=== PATIENT | female | born 1945 | race Caucasian/White ===

== ENCOUNTER 2018-12-18 12:05 | Inpatient (IN) ==
[2018-12-18] MEDS ORDERED: Albuterol 2.5 MG/3 ML NEBULIZER IH STA ×3 (12:10→13:53)
--- NOTE | 2018-12-18 12:13 | Emergency Department Note ---
Disposition Clinical Impression: COPD exacerbation, Hyponatremia Disposition: Admitted As Inpatient Condition: Critical Referrals: Aryan Rees MD [Primary Care Provider] - Time of Disposition: 14:30 General Adult HPI - General Stated complaint: KEYLA Time Seen by Provider: 12/18/18 12:09 - History of Present Illness HPI Narrative: Patient resents a couple of days of gradually progressive shortness of breath. She has not had a fever. Denies chest pain. Medics arrived and found her tripoding, gave her 3 duo nebs in route. Patient is having trouble conversing and answering questions in detail due to her dyspnea. She denies any other complaint at this time. - Related Data Home Medications Medication Instructions Recorded Confirmed Albuterol Sulfate [Proair 1 - 2 puff IH Q6H PRN 03/31/15 12/18/18 Respiclick] Allopurinol [Zyloprim] 100 mg PO DAILY 03/31/15 12/18/18 Denosumab [Prolia (For Outpatient 60 mg IV [id number] 03/31/15 12/18/18 Infusion)] Furosemide [Lasix] 40 mg PO DAILY 03/31/15 12/18/18 Lisinopril [Zestril] 2.5 mg PO DAILY 03/31/15 12/18/18 Spironolactone [Aldactone] 12.5 mg PO DAILY 03/31/15 12/18/18 Budesonide/Formoterol 160/4.5 2 puff IH BIDR 10/17/18 12/18/18 [Symbicort 160/4.5] Carvedilol [Coreg] 25 mg PO BID 10/17/18 12/18/18 Cholecalciferol (Vitamin D3) 5,000 unit PO DAILY 12/18/18 12/18/18 [Vitamin D3] Colchicine [Colcrys] 0.6 mg PO DAILY 12/18/18 12/18/18 Ipratropium/Albuterol Sulfate 2 inh IH Q6HR PRN 12/18/18 12/18/18 [Combivent Respimat Inhal [place]] Tiotropium [place] [Spiriva 2 inh IH DAILY 12/18/18 12/18/18 Respimat] Previous Rx's Medication Instructions Recorded Rivaroxaban [Xarelto] 20 mg PO DAILY #30 tablet 09/26/17 Allergies Allergy/AdvReac Type Severity Reaction Status Date / Time latex Allergy Unknown Rash Verified 09/26/17 08:03 aspirin AdvReac Unknown Stomach Verified 09/26/17 08:03 upset Review of Systems: Negative as best as I could obtain it, limited due to factors noted above. Past Medical History - Past Medical History Medical history: Reports: osteoporosis Surgical history: Reports: non-contributory Psychiatric history: Reports: no psych history - Social History Smoking Status: Former smoker Smokeless Tobacco Status: No Alcohol use: Reports: none Drug use: Reports: none Physical Exam Vital signs noted please see nurse's notes. Gen.: Well-developed, well-nourished patient sitting up in bed who is in moderate respiratory distress. Head: Atraumatic, normocephalic. Eyes: Sclerae anicteric. ENT: Mucous membranes moist. Neck: No JVD. Heart: Distant heart sounds, mildly tachycardic and regular without appreciable murmur. Lungs: Diminished breath sounds bilaterally with prolonged expiratory phase and auditory wheezing. No focal rales noted. Exam is symmetrical. Abdomen: Soft, nontender, nondistended, no guarding or peritoneal signs. Skin: Warm and dry without rash. Neurologic: Awake, alert with normal speech and mental status. Cranial nerves grossly intact. No focal deficits or lateralizing signs. Musculoskeletal: 1+ bilateral peripheral edema. No signs of trauma or DVT. Peripheral Vascular: Radial pulses 2+ and symmetrical b/l. Course Course Narrative: Patient was treated aggressively with nebulizers, given steroids. Chest x-ray has not been read by radiologist due to significant delays today due to volume, on my review does not show an obvious infiltrate. Given her antibiotics or COPD exacerbation. We had a BiPAP when she showed minimal improvement. I did back to the room to reevaluate her approximately 5 or 6 times, over the course of her ED stay, she is moving a little bit more air that she was not beginning but it is not a significant improvement despite 37.5 mg nebulized albuterol and BiPAP. The nurse was concerned that she was less responsive than when she got here, but on my assessment found her slightly more responsive than she was. She was tracking me with her eyes, answering questions, speaking with me, nodding her head to questions without delays. She does have, however, significant work of breathing. I have added a venous blood gas to assess her acid base status, I do not think that she requires intubation at this time, but if she does not start to show improvement she may need it during the course of the day today area therefore, I have called for ICU admission. Critical care time: I was directly and primarily involved in the care of this patient for 45 minutes excluding procedures. Vital Signs Temperature 97.1 F L 12/18/18 12:15 Pulse Rate 100 12/18/18 12:15 Respiratory Rate 24 12/18/18 12:15 Blood Pressure 145/123 12/18/18 12:15 O2 Sat by Pulse Oximetry 83 12/18/18 12:15 Temperature 97.1 F L 12/18/18 12:15 Pulse Rate 97 12/18/18 13:45 Respiratory Rate 22 12/18/18 14:27 Blood Pressure 111/82 12/18/18 13:45 O2 Sat by Pulse Oximetry 94 12/18/18 14:27 Oxygen Delivery Oxygen Delivery Bipap Medical Decision Making - Lab Data Result diagrams: 12/18/18 12:21 12/18/18 13:34 Lab Results 12/18/18 12/18/18 12/18/18 Range/Units 12:21 12:21 13:34 WBC 6.7 (4.3-11.1) K/mcL RBC 4.91 (3.82-4.97) M/mcL Hgb 16.9 H (11.5-15.4) g/dL Hct 46.9 H (35.3-44.9) % MCV 95.5 (83.0-100.0) fL MCH 34.4 H (28.0-33.3) pg MCHC 36.0 H (31.6-35.5) g/dL RDW 12.2 (11.5-14.5) % Plt Count 129 L (140-400) K/mcL MPV 10.8 (9.4-12.4) fL Sodium 118 L* 118 L* (136-145) mEq/L Potassium 5.2 H 4.9 (3.5-5.1) mEq/L Chloride 79 L 79 L (98-107) mEq/L Carbon Dioxide 27 25 (23-29) mEq/L BUN 33 H 34 H (8-23) mg/dL Creatinine 1.71 H 1.76 H (0.60-1.20) mg/dL Est GFR ( Amer) 36 L 34 L (> 60) Est GFR (Non-Af Amer) 29 L 28 L (> 60) BUN/Creatinine Ratio 19 19 (6-26) Glucose 138 H 127 H (70-105) mg/dL Calculated Osmolality 255 L 255 L (280-300) Calcium 7.4 L 7.3 L (8.6-10.3) mg/dL - EKG Data EKG #1 EKG attestation: Yes I reviewed and interpreted this EKG. Rhythm: other (Paced rhythm, 100 bpm.)
[2018-12-18 12:46] LABS: Hematocrit 46.9 % (35.3-44.9); Hemoglobin 16.9 g/dL (11.5-15.4); Mean Corpuscular Hemoglobin 34.4 pg (28.0-33.3); Mean Corpuscular Volume 95.5 fL (83.0-100.0); Mean Platelet Volume 10.8 fL (9.4-12.4); Platelet Count 129 K/mcL (140-400); Red Blood Count 4.91 M/mcL (3.82-4.97); Red Cell Distribution Width 12.2 % (11.5-14.5); White Blood Count 6.7 K/mcL (4.3-11.1)
[2018-12-18 13:12] LABS: Calcium 7.4 mg/dL (8.6-10.3); Potassium 5.2 mEq/L (3.5-5.1)
[2018-12-18 14:49] LABS: Calcium 7.3 mg/dL (8.6-10.3); Potassium 4.9 mEq/L (3.5-5.1)
[2018-12-18] MEDS ORDERED: levoFLOXacin 500 MG/100 ML 500 MG/100 ML BAG IVPB ONE (14:49)
[2018-12-18 15:04] LABS: VBG HCO3 25 mEq/L (21-27); VBG PCO2 54 mmHg (41-51); VBG PH 7.27 pH Units (7.32-7.42); VBG PO2 80 mmHg (25-50)
[2018-12-18] MEDS ORDERED: Naloxone 0.4 MG/ML INJ IVP PRN (15:10)
[2018-12-18] MEDS ORDERED: methylPREDNISolone 125 MG/2 ML VIAL IVP ONE (15:15)
[2018-12-18 15:16] LABS: Bilirubin,Urine Moderate (Negative); Blood,Urine Trace (Negative); Clarity,Urine Cloudy (Clear); Color,Urine Dark Yellow (Yellow); Glucose,Urine (UA) Normal (Normal); Ketones,Urine Negative (Negative); Leukocyte Esterase,Urine Negative (Negative); Nitrite,Urine Negative (Negative); Protein,Urine Negative (Neg-Trace); Specific Gravity,Urine 1.017 (1.010-1.025); Urobilinogen,Urine Normal (Normal)
[2018-12-18 15:19] LABS: Bacteria,Urine None Seen per hpf (None-Few); Squamous Epithelial Cell,Urine Many per lpf (None-Few); WBC,Urine 0-3 per hpf (0-3)
[2018-12-18] MEDS: 0.9 % Sodium Chloride 1,000 ML IVC SCH (15:32)
--- NOTE | 2018-12-18 15:39 | Internal Med History&Physical ---
<Esa Gillette N - Last Filed: 12/18/18 16:35> Date of Encounter: 12/18/18 Time of Encounter: 15:36 Internal Medicine - H&P: HPI Chief complaint: Respiratory Distress Admitted From: Home History of present illness: Ms. Sands is a 73 year old female with history difficult to obtain due to patient's current respiratory distress and being on the BiPAP. Patient's son at bedside, but has limited knowledge of mother's medical conditions. Per medication review patient is on several respiratory-related medications and is on several cardiac medications including a beta felice, Lasix, spironolactone, xarelto, and lisinopril. According to son patient has had a couple days of progressive shortness of breath which he states patient should have come in earlier for but refused until today. Patient's son also states patient is a ci garette smoker and drinks approximately one fourth of a gallon of whiskey per day at home. En route patient was given 3 DuoNeb's by EMS. Upon arrival to the ED she was having trouble conversing due to dyspnea and was started on BiPAP as initial O2 saturation was at 83% and a respiratory rate of 24. Patient's oxygenation improved once BiPAP was started with current O2 saturation of 96%. All other vital signs stable with heart rate of 95%, respiratory rate elevated at 24, and most recent blood pressure 111/88. CXR with a focal density in the right lower lung field. Labs significant for a sodium of 118 and creatinine of 1.76. In the ED patient was given a dose of Levaquin, Solu-Medrol, and started on Proventil nebs. Past Med Surg Social Fam HX - Past Medical History Medical history: CHF, COPD, DVT, hypertension, osteoporosis Additional medical history: gout Psychiatric history: no psych history - Past Surgical History Surgical History: non-contributory Additional surgical history: back surgery, tubal ligation, PPM - Social History Smoking Status: Former smoker Smokeless Tobacco Status: No Alcohol use: none Drug use: none Internal Medicine - H&P: Meds Albuterol Sulfate [Proair Respiclick] 1 - 2 puff IH Q6H PRN 03/31/15 [History] Allopurinol [Zyloprim] 100 mg PO DAILY 03/31/15 [History] Denosumab [Prolia (For Outpatient Infusion)] 60 mg IV [id number] 03/31/15 [History] Furosemide [Lasix] 40 mg PO DAILY 03/31/15 [History] Lisinopril [Zestril] 2.5 mg PO DAILY 03/31/15 [History] Spironolactone [Aldactone] 12.5 mg PO DAILY 03/31/15 [History] Rivaroxaban [Xarelto] 20 mg PO DAILY #30 tablet 09/26/17 [Rx] Budesonide/Formoterol 160/4.5 [Symbicort 160/4.5] 2 puff IH BIDR 10/17/18 [History] Carvedilol [Coreg] 25 mg PO BID 10/17/18 [History] Cholecalciferol (Vitamin D3) [Vitamin D3] 5,000 unit PO DAILY 12/18/18 [History] Colchicine [Colcrys] 0.6 mg PO DAILY 12/18/18 [History] Ipratropium/Albuterol Sulfate [Combivent Respimat Inhal [place]] 2 inh IH Q6HR PRN 12/18/18 [History] Tiotropium [place] [Spiriva Respimat] 2 inh IH DAILY 12/18/18 [History] Allergy/AdvReac Type Severity Reaction Status Date / Time latex Allergy Unknown Rash Verified 09/26/17 08:03 aspirin AdvReac Unknown Stomach Verified 09/26/17 08:03 upset ROS unobtainable: other (due to BiPAP and respiratory distress ROS difficult to obtain at this time) All Systems PM: A 10-system review of systems was performed and is negative for pertinent findings except as documented above in the HPI. - Constitutional Vitals: Temp Pulse Resp BP Pulse Ox 97.1 F L 107 24 111/88 98 12/18/18 12:15 12/18/18 15:05 12/18/18 15:05 12/18/18 15:05 12/18/18 15:05 Exam: Pt on BiPAP in respiratory distress tripod positioning - Head Head exam: Present: atraumatic, normocephalic - Eye Eye exam: Present: EOMI, PERRL - Neck Neck exam general surgery: Present: supple. Absent: lymphadenopathy - Respiratory Respiratory exam: Present: decreased breath sounds, wheezes - Cardiovascular Cardiovascular exam: Present: RRR. Absent: diastolic murmur, systolic murmur - GI/Abdominal GI/Abdominal exam: Present: normal bowel sounds, soft. Absent: tenderness - Extremities Exam Extremities exam: Present: full ROM. Absent: calf tenderness - Neurological Exam Neurological exam: Present: alert Additional comments: Not well assessed due to BiPAP and respiratory distress - Psychiatric Additional comments: Not well assessed due to BiPAP and respiratory distress - Skin Skin exam: Present: intact, warm Internal Med - H&P Results - Labs CBC & Chem 7: 12/18/18 12:21 12/18/18 13:34 Labs: Short CBC 12/18/18 Range/Units 12:21 WBC 6.7 (4.3-11.1) K/mcL Hgb 16.9 H (11.5-15.4) g/dL Hct 46.9 H (35.3-44.9) % Plt Count 129 L (140-400) K/mcL BMP 12/18/18 12/18/18 12:21 13:34 Sodium 118 L* 118 L* Potassium 5.2 H 4.9 Chloride 79 L 79 L Carbon Dioxide 27 25 BUN 33 H 34 H Creatinine 1.71 H 1.76 H Glucose 138 H 127 H Calcium 7.4 L 7.3 L Urine 12/18/18 Range/Units 15:06 Urine Color Dark Yellow (Yellow) Urine Clarity Cloudy A (Clear) Urine pH 5.0 (5.0-8.0) pH Units Ur Specific [place] 1.017 (1.010-1.025) Urine Protein Negative (Neg-Trace) mg/dL Urine Glucose (UA) Normal (Normal) mg/dL - ABG Interpretation ABG results: 12/18/18 14:58 VBG pH 7.27 L VBG pCO2 54 H VBG pO2 80 H VBG HCO3 25 - Impressions ITS Impressions Chest X-Ray 12/18/18 12:10 IMPRESSION: Focal density in the right lower lung field for which noncontrast chest CT is recommended for complete assessment. Focal infiltrate or possible mass is raised. D/ / 12/18/2018 13:28:52 Satya Varela MD / [facility] Interpreting Provider: Satya Varela MD - Assessment and Plan (1) Respiratory failure with hypoxia and hypercapnia Current Visit: Yes Status: Acute Assessment and plan: Patient presenting with acute respiratory distress most likely secondary to PNA/COPD exacerbation CXR with focal density in the RLL could be focal infiltrate or possible mass. PE lower on differential due to patient currently on Xarelto Patient currently requiring BiPAP therapy with O2 saturation of 96% -Lactic Acid ordered -Levoquin given in ED -Vancomycin and Zosyn day 1 -Solu-Medrol, duonebs, and symbicort therapy -ABG ordered, will follow results -Legionella antigen ordered -We will have low threshold to intubate patient if showing signs of worsening respiratory distress -D-dimer ordered, will follow for results -We will hold off on CT chest with contrast until SALINAS resolved. Possibly tomorrow -Last dose of Xarelto this morning will start heparin tomorrow morning Qualifiers: Chronicity: acute on chronic Qualified Code(s): J96.21 - Acute and chronic respiratory failure with hypoxia; J96.22 - Acute and chronic respiratory failure with hypercapnia (2) Hyponatremia Current Visit: Yes Status: Acute Assessment and plan: Na of 118 x2 Patient on lasix 40 mg and aldactone 12.5 mg daily in the setting of alcoholism Pt without acute AMS with hyponatremia -Hold diuretic therapy -Started NS at 100 ml/hr -Continue to monitor for improvement -Urine Osmolality and electrolytes ordered as well as random cortisol, will follow for results. 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 in the setting of severe dehydration and dual diuretic use -Hold diuretics -Maintenance fluids started NS 100 mls/hr -Continue to monitor for improvement (4) Hypovolemia dehydration Current Visit: Yes Status: Acute Assessment and plan: Probably secondary to decreased intake with dual diuretic therapy, and respiratory distress Pt on lasix 40 mg Daily and aldactone 12.5 mg at home with heavy alcohol use -Started on NS 100 ml/hr -Cortisol, urine osmolality, and urine electrolytes will monitor results (5) Alcoholism Current Visit: Yes Status: Acute Assessment and plan: Pts son admits that pt drinks approximately 1/4 a gallon of alcohol per day Maybe contributing to hyponatremia -Start [facility] protocol for acute alcohol withdrawal. (6) DVT prophylaxis Current Visit: Yes Status: Acute Assessment and plan: On Xarelto, will start heparin tomorrow morning. - Time Spent With Patient Total time spent is greater than 50% in coordination of care (as documented) at patient's floor/unit and/or counseling patient: <Addison Eduardo - Last Filed: 12/18/18 17:55> Date of Encounter: 12/18/18 Time of Encounter: 15:50 - Constitutional Constitutional: fatigue, no chills, no fever(s), no night sweats - EENT Eyes: no blurry vision, no change in vision Ears: no ear pain, no tinnitus Nose, mouth and throat: nasal congestion, no sinus pressure, no sore throat - Cardiovascular Cardiovascular ROS IM: dyspnea, dyspnea on exertion, no chest pain, no edema, no lightheadedness, no orthopnea, no paroxysmal nocturnal dyspnea, no syncope - Respiratory Respiratory: cough, dyspnea, dyspnea on exertion, wheezing, chest congestion, excessive phlegm production, change in phlegm color, no hemoptysis, no pain on inspiration, no pain with cough - Gastrointestinal Gastrointestinal: diarrhea, nausea, no abdominal pain, no coffee ground emesis, no hematemesis, no hematochezia, no vomiting - Genitourinary Genitourinary: no dysuria, no flank pain, no hematuria - Musculoskeletal Musculoskeletal ROS IM: no arthralgias, no back pain - Integumentary Integumentary IM: no rash, no jaundice - Neurological Neurological ROS: no dizziness, no focal weakness, no frequent falls, no headache(s) - Psychiatric Psychiatric: no anxiety, no depression - Endocrine Endocrine IM: no polydipsia, no polyuria - Hematologic/Lymphatic Hematologic/Lymphatic: easy bruising - Allergic/Immunologic Allergic/Immunologic: wheezing, no GI upset with certain foods - Constitutional Vitals: Temp Pulse Resp BP Pulse Ox 97.6 F 80 25 77/62 96 12/18/18 16:28 12/18/18 17:15 12/18/18 17:15 12/18/18 17:15 12/18/18 17:15 General appearance: Present: cooperative, A&O X 3, severe distress, answers questions appropriately Exam: in severe respiratory distress on BiPap; answers yes/no questions; appears clinically dehydrated - Head Head exam: Present: atraumatic, normal inspection - Eye Eye exam: Present: EOMI, PERRL. Absent: scleral icterus Pupils: Present: normal accommodation - ENT ENT exam: Present: mucous membranes dry Additional comments: BiPap Mask in place - Neck Neck exam general surgery: Present: full ROM, supple, trachea midline. Absent: lymphadenopathy, tenderness - Respiratory Respiratory exam: Present: accessory muscle use, decreased breath sounds, prolonged expiratory phase, respiratory distress, rhonchi, wheezes, tachypnea. Absent: chest wall tenderness, rales, stridor Additional comments: increased work of breathing - Cardiovascular Cardiovascular exam: Present: distant heart sounds, RRR, +S1, +S2. Absent: diastolic murmur, systolic murmur Additional comments: palpable pacer in left upper chest - GI/Abdominal GI/Abdominal exam: Present: normal bowel sounds, soft, no peritoneal signs. Absent: hepatomegaly, mass, rebound, splenomegaly, tenderness - Extremities Exam Extremities exam: Present: full ROM, warm, radial pulses palpable and symmetrical. Absent: calf tenderness, normal capillary refill (delayed at roughly 4 seconds), pedal edema, tenderness - Back Exam Back exam: Absent: CVA tenderness (L), CVA tenderness (R) - Neurological Exam Neurological exam: Present: alert, CN II-XII intact, oriented X3, no focal deficits - Psychiatric Psychiatric exam: Present: normal affect, normal mood - Skin Skin exam: Present: dry, intact, warm Additional comments: + skin tenting; some peripheral bruising on arms Internal Med - H&P Results - Labs CBC & Chem 7: 12/18/18 12:21 12/18/18 13:34 Labs: Short CBC 12/18/18 Range/Units 12:21 WBC 6.7 (4.3-11.1) K/mcL Hgb 16.9 H (11.5-15.4) g/dL Hct 46.9 H (35.3-44.9) % Plt Count 129 L (140-400) K/mcL BMP 12/18/18 12/18/18 12:21 13:34 Sodium 118 L* 118 L* Potassium 5.2 H 4.9 Chloride 79 L 79 L Carbon Dioxide 27 25 BUN 33 H 34 H Creatinine 1.71 H 1.76 H Glucose 138 H 127 H Calcium 7.4 L 7.3 L Urine 12/18/18 Range/Units 15:06 Urine Color Dark Yellow (Yellow) Urine Clarity Cloudy A (Clear) Urine pH 5.0 (5.0-8.0) pH Units Ur Specific [place] 1.017 (1.010-1.025) Urine Protein Negative (Neg-Trace) mg/dL Urine Glucose (UA) Normal (Normal) mg/dL - ABG Interpretation ABG results: 12/18/18 12/18/18 14:58 16:52 ABG pH 7.36 ABG pCO2 45 ABG pO2 115 H ABG HCO3 26 ABG Total CO2 27 H ABG O2 Saturation 98 ABG Base Excess 0 VBG pH 7.27 L VBG pCO2 54 H VBG pO2 80 H VBG HCO3 25 - Impressions ITS Impressions Chest X-Ray 12/18/18 12:10 IMPRESSION: Focal density in the right lower lung field for which noncontrast chest CT is recommended for complete assessment. Focal infiltrate or possible mass is raised. D/ / 12/18/2018 13:28:52 Satya Varela MD / [email or web address] Interpreting Provider: Satya Varela MD - Time Spent With Patient Total time spent is greater than 50% in coordination of care (as documented) at patient's floor/unit and/or counseling patient: - Attending Attestation I discussed the patient [place], past medical history, review of systems, lab data, imaging data, and exam findings with Dr. Gillette. I then saw, examined, and interviewed patient in the ER independently as well in the presence of her son. Patient is in severe acute respiratory distress secondary to COPD exacerbation. She states she is improved somewhat since the BiPAP initiation. Despite the BiPAP, she is exhibiting signs of increased work of breathing. She is teetering on the verge of being intubated. I explained to patient, son, and then later her , that she is gravely ill and is at high risk of decompensation from a respiratory standpoint. I discussed CODE STATUS with her, her son, and her , and she remains full code. If she decompensates, she agrees and requests to be intubated. We will try to avoid intubation, but we will proceed as such if necessary. She denies having any fevers, but she has been coughing, wheezing, and coughing up purulent sputum over the last few days. She denies any chest pain. She is an active smoker despite having advanced COPD. She also is a heavy drinker of alcohol. She is at high risk of alcohol withdrawal. She has a history of DVT and is on Xarelto for DVT prophylaxis as well as atrial fibrillation. Her last DVT was 2 years ago. She did take her Xarelto this morning. As such, we will start heparin drip tomorrow morning and proceed with CT angiogram of the chest once her kidney function improves. Her chest x-ray is suspicious for right lower lobe infiltrate versus a mass. Regarding her hyponatremia, she appears to be hypovolemic due to aggressive diuresis with Lasix and spironolactone, insensible water loss secondary to decreased by mouth intake and excessive respiratory distress, and excessive alcohol intake. There may be a component of SIADH given possible underlying malignancy of the lung. We will trend her chemistries frequently and gingerly hydrate her with normal saline while holding her diuretics. She appears to be clinically dehydrated on exam and is in need of IV fluid support. I called and spoke with Dr. Villareal from nephrology and am consulting him. He concurs with the plan of care. Given her severe her respiratory distress, advanced COPD, and ongoing need for support from BiPAP and possibly mechanical ventilator, we will also consult pulmonary to see her in the morning for ongoing guidance and support. Other than my comments above and documented exam findings, I agree with Dr. Gillette's assessment and plan. Please note that a total of 65 minutes critical care time spent assessing, examining, and coordinating care of this patient -- excluding separately documented procedure notes.
[2018-12-18] MEDS ORDERED: Calcium Gluconate 1gm/50mL 1 GM/50 ML BAG IVPB ONE (15:43)
[2018-12-18] MEDS ORDERED: Vancomycin 1 EACH in 0.9 % Sodium Chloride 250 ML IVPB SCH (16:00)
[2018-12-18 16:08] LABS: Potassium,Urine 29.7 mEq/L; Sodium, Urine 17.7 mEq/L
[2018-12-18 16:27] LABS: Thyroid Stimulating Hormone 1.344 mcIU/mL (0.340-5.600)
[2018-12-18 16:56] LABS: ABG Base Excess 0 mEq/L (-2 to 3); ABG HCO3 26 mEq/L (21-27); ABG Oxygen Saturation 98 % (95-98); ABG PCO2 45 mmHg (35-45); ABG PH 7.36 pH Units (7.32-7.45); ABG PO2 115 mmHg (85-104); ABG TCO2 27 mEq/L (20-26)
[2018-12-18] MEDS: Ipratropium/Albuterol Neb 3 ML IH SCH ×2 (16:59→22:58)
--- NOTE | 2018-12-18 18:04 | Internal Med Progress Note ---
<Archie Schroeder - Last Filed: 12/18/18 18:05> Hospitalist Progress Note - Encounter Date of Encounter: 12/18/18 Time of Encounter: 18:02 - Subjective Interval History: This note is intended for the sole purpose of procedure note for right femoral central venous catheterization. Please see hospitalist H&P for further informa tion. - Exam Vitals: Temp Pulse Resp BP Pulse Ox 97.6 F 80 25 77/62 96 12/18/18 16:28 12/18/18 17:15 12/18/18 17:15 12/18/18 17:15 12/18/18 17:15 Exam: Patient stable at this time. - Time Spent with Patient Total time spent is greater than 50% in coordination of care (as documented) at patient's floor/unit and/or counseling patient: Internal Medicine: Result - Labs CBC & Chem 7: 12/18/18 12:21 12/18/18 13:34 Labs: Short CBC 12/18/18 Range/Units 12:21 WBC 6.7 (4.3-11.1) K/mcL Hgb 16.9 H (11.5-15.4) g/dL Hct 46.9 H (35.3-44.9) % Plt Count 129 L (140-400) K/mcL BMP 12/18/18 12/18/18 12:21 13:34 Sodium 118 L* 118 L* Potassium 5.2 H 4.9 Chloride 79 L 79 L Carbon Dioxide 27 25 BUN 33 H 34 H Creatinine 1.71 H 1.76 H Glucose 138 H 127 H Calcium 7.4 L 7.3 L Urine 12/18/18 Range/Units 15:06 Urine Color Dark Yellow (Yellow) Urine Clarity Cloudy A (Clear) Urine pH 5.0 (5.0-8.0) pH Units Ur Specific [place] 1.017 (1.010-1.025) Urine Protein Negative (Neg-Trace) mg/dL Urine Glucose (UA) Normal (Normal) mg/dL - ABG Interpretation ABG results: ABG ABG pH 7.36 pH Units (7.32-7.45) 12/18/18 16:52 ABG pCO2 45 mmHg (35-45) 12/18/18 16:52 ABG pO2 115 mmHg (85-104) H 12/18/18 16:52 ABG O2 Saturation 98 % (95-98) 12/18/18 16:52 PT/INR, D-dimer D-Dimer 739 ng/mLFEU (0-500) H 12/18/18 16:26 - Impressions Impressions Chest X-Ray 12/18/18 12:10 IMPRESSION: Focal density in the right lower lung field for which noncontrast chest CT is recommended for complete assessment. Focal infiltrate or possible mass is raised. D/ / 12/18/2018 13:28:52 Satya Varela MD / randi Interpreting Provider: Satya Varela MD Procedures: Internal Med - Central Line Placement Right Femoral Consent Obtained: verbal consent, written consent Time out performed: Yes Patient placed on monitor/pulse ox: Yes MD prep: mask, gown, gloves Central line prep: Chlorhexidine scrub Local anesthesia used: Lidocaine 1% Amount of anesthesia used (mls): 3 Ultrasound used for placement: Yes Central line lumen inserted: triple Post Procedure: sutured in place, good blood return, all ports aspirated, flushed, capped, sterile dressing applied, dark venous blood, biodisk applied Patient tolerated procedure: well, no complications Complications: none Additional comments: Patient was draped in sterile fashion, with sterile procedure observed throughout the event. Patient tolerated procedure well without complications. 3 lm central venous catheter was sutured in place with bio disc and Tegaderm applied. Consult Discharge Plan - Plan Referrals: Aryan Rees MD [Primary Care Provider] - <Addison Eduardo - Last Filed: 12/19/18 06:39> Hospitalist Progress Note - Encounter Date of Encounter: 12/19/18 - Exam Vitals: Temp Pulse Resp BP Pulse Ox 97.2 F L 88 21 115/85 96 12/19/18 04:54 12/19/18 06:00 12/19/18 06:00 12/19/18 06:00 12/19/18 06:00 - Time Spent with Patient Total time spent is greater than 50% in coordination of care (as documented) at patient's floor/unit and/or counseling patient: Internal Medicine: Result - Labs CBC & Chem 7: 12/19/18 03:50 12/19/18 03:50 Labs: Short CBC 12/18/18 12/19/18 Range/Units 12:21 03:50 WBC 6.7 2.7 L D (4.3-11.1) K/mcL Hgb 16.9 H 14.4 D (11.5-15.4) g/dL Hct 46.9 H 39.7 (35.3-44.9) % Plt Count 129 L 104 L (140-400) K/mcL BMP 12/18/18 12/18/18 12/18/18 12:21 13:34 18:29 Sodium 118 L* 118 L* 120 L* Potassium 5.2 H 4.9 4.5 Chloride 79 L 79 L 82 L Carbon Dioxide 27 25 25 BUN 33 H 34 H 37 H Creatinine 1.71 H 1.76 H 1.98 H Glucose 138 H 127 H 84 Calcium 7.4 L 7.3 L 7.0 L 12/18/18 12/18/18 12/19/18 20:30 23:00 01:20 Sodium 121 L 121 L 121 L Potassium 4.8 4.9 Chloride 83 L 85 L Carbon Dioxide 23 21 L BUN 37 H 38 H Creatinine 1.96 H 2.00 H Glucose 65 L 66 L Calcium 6.9 L 6.6 L 12/19/18 03:50 Sodium 122 L Potassium 5.0 Chloride 86 L Carbon Dioxide 19 L BUN 41 H Creatinine 2.01 H Glucose 65 L Calcium 6.5 L Liver Function 12/19/18 Range/Units 03:50 Total Bilirubin 2.6 H (0.3-1.0) mg/dL AST 295 H (13-39) Units/L ALT 90 H (7-52) Units/L Alkaline Phosphatase 100 (34-104) Units/L Albumin 2.9 L (3.5-5.7) g/dL Urine 12/18/18 Range/Units 15:06 Urine Color Dark Yellow (Yellow) Urine Clarity Cloudy A (Clear) Urine pH 5.0 (5.0-8.0) pH Units Ur Specific [place] 1.017 (1.010-1.025) Urine Protein Negative (Neg-Trace) mg/dL Urine Glucose (UA) Normal (Normal) mg/dL - ABG Interpretation ABG results: ABG ABG pH 7.34 pH Units (7.32-7.45) 12/19/18 05:11 ABG pCO2 39 mmHg (35-45) 12/19/18 05:11 ABG pO2 90 mmHg (85-104) 12/19/18 05:11 ABG O2 Saturation 97 % (95-98) 12/19/18 05:11 PT/INR, D-dimer PT 28.7 Seconds (9.4-12.1) H 12/19/18 03:50 D-Dimer 739 ng/mLFEU (0-500) H 12/18/18 16:26 - Impressions Impressions Chest X-Ray 12/18/18 12:10 IMPRESSION: Focal density in the right lower lung field for which noncontrast chest CT is recommended for complete assessment. Focal infiltrate or possible mass is raised. D/ / 12/18/2018 13:28:52 Satya Varela MD / [facility] Interpreting Provider: Satya Varela MD - Attending Attestation I was present during the entire procedure and supervised the procedure. Dr. Cope performed the procedure flawlessly and patient tolerated procedure well without immediate complication.
[2018-12-18] MEDS: Piperacillin/Tazobactam 3.375 GM in 0.9 % Sodium Chloride Mini Bag 100 ML IVPB SCH (18:14)
[2018-12-18 19:06] LABS: Potassium 4.5 mEq/L (3.5-5.1)
[2018-12-18 21:02] LABS: Calcium 6.9 mg/dL (8.6-10.3); Potassium 4.8 mEq/L (3.5-5.1)
[2018-12-18] MEDS: Budesonide/Formoterol 160/4.5 1 PUFF INH IH SCH (22:58)
[2018-12-18 23:35] LABS: Calcium 6.6 mg/dL (8.6-10.3); Potassium 4.9 mEq/L (3.5-5.1)
[2018-12-19] MEDS: 0.9 % Sodium Chloride 1,000 ML IVC SCH ×3 (01:30→19:40)
[2018-12-19 04:05] LABS: Hematocrit 39.7 % (35.3-44.9); Mean Corpuscular HGB Conc 36.3 g/dL (31.6-35.5); Mean Corpuscular Volume 93.9 fL (83.0-100.0); Mean Platelet Volume 11.1 fL (9.4-12.4); Platelet Count 104 K/mcL (140-400); Red Blood Count 4.23 M/mcL (3.82-4.97); Red Cell Distribution Width 12.2 % (11.5-14.5)
[2018-12-19 04:09] LABS: White Blood Count 2.7 K/mcL (4.3-11.1)
[2018-12-19 04:10] LABS: Hemoglobin 14.4 g/dL (11.5-15.4)
[2018-12-19] MEDS: Ipratropium/Albuterol Neb 3 ML IH SCH ×5 (04:16→23:48)
[2018-12-19 04:20] LABS: INR 2.5; Prothrombin Time 28.7 Seconds (9.4-12.1)
[2018-12-19 04:24] LABS: Albumin 2.9 g/dL (3.5-5.7); Albumin/Globulin Ratio 1.3 (1.1-2.2); Bilirubin,Total 2.6 mg/dL (0.3-1.0); Calcium 6.5 mg/dL (8.6-10.3); Globulin 2.3 g/dL (2.4-3.5); Total Protein 5.2 g/dL (6.4-8.9)
[2018-12-19 04:33] LABS: Heparin anti-factor XA UFH > 2.00 IU/mL (0.30-0.70)
[2018-12-19 05:17] LABS: ABG Base Excess -4 mEq/L (-2 to 3); ABG HCO3 21 mEq/L (21-27); ABG Oxygen Saturation 97 % (95-98); ABG PCO2 39 mmHg (35-45); ABG PH 7.34 pH Units (7.32-7.45); ABG PO2 90 mmHg (85-104); ABG TCO2 23 mEq/L (20-26)
[2018-12-19] MEDS: Piperacillin/Tazobactam 3.375 GM in 0.9 % Sodium Chloride Mini Bag 100 ML IVPB SCH ×2 (05:58→17:41)
[2018-12-19] MEDS ORDERED: *HR* Heparin 5,000 UNIT/ML VIAL IVP PRN ×2 (06:00)
[2018-12-19] MEDS ORDERED: *HR* Heparin 5,000 UNIT/ML VIAL IVP ONE (06:00)
[2018-12-19] MEDS ORDERED: Heparin 25,000 UNIT/250 ML D5W 25,000 UNIT/250 ML IV.SOLN IVC SCH (06:00)
--- NOTE | 2018-12-19 06:58 | Internal Med Progress Note ---
<Esa Gillette N - Last Filed: 12/19/18 10:52> Hospitalist Progress Note - Encounter Date of Encounter: 12/19/18 Time of Encounter: 06:58 - Subjective Interval History: Patient much improved today on oxygen at 3 L in the room and able to talk in full sentences without respiratory distress. Patient states that she was recently started on a new medication for gout and she believes that this has caused her deterioration. Patient also states she has had 7 days of diarrhea without blood. She states that the diarrhea occurs no matter what she eats. Patient denies abdominal pain, nausea, vomiting, chest pain, shortness of casey th, cough, fever, or chills at this time. - Exam Vitals: Temp Pulse Resp BP Pulse Ox 97.2 F L 88 21 115/85 96 12/19/18 04:54 12/19/18 06:00 12/19/18 06:00 12/19/18 06:00 12/19/18 06:00 Exam: General: Pt appears well laying comfortably in bed. Head exam: Present: atraumatic, normocephalic Eye exam: Present: EOMI, PERRL Neck exam general surgery: Present: supple. Absent: lymphadenopathy Respiratory exam: Much improved air movement with slight wheezes still present on expiration Cardiovascular exam: Present: RRR. Absent: diastolic murmur, systolic murmur GI/Abdominal exam: Present: normal bowel sounds, soft. Absent: tenderness Extremities exam: Present: full ROM. Absent: calf tenderness. Bruising present on the bilateral upper extremities. Trace edema of the LE. Neurological exam: Present: alert& oriented x3. No focal deficits noted. - Assessment and Plan (1) Respiratory failure with hypoxia and hypercapnia Current Visit: Yes Status: Acute Assessment and Plan: Patient presenting with acute respiratory distress most likely secondary to PNA/COPD exacerbation CXR with focal density in the RLL could be focal infiltrate or possible mass. PE lower on differential due to patient currently on Xarelto Patient currently requiring 3L O2 via NC with O2 saturation of 98% Lactic Acid of 1.0 D-Dimer elevated at 739 -Vancomycin and Zosyn day 2 and Azithromycin day 1 -Solu-Medrol, duonebs, and symbicort therapy, will reduce solumedrol to 40 mg Q12H -V/Q scan and CT Chest w/o contrast ordered as Controller [place] continues to trend up will hold off on contrast -Doppler US bilateral LE ordered (2) Hyponatremia Current Visit: Yes Status: Acute Assessment and Plan: Na of 118 x2 Patient on lasix 40 mg and aldactone 12.5 mg daily in the setting of alcoholism Pt without acute AMS with hyponatremia Appears to be related to dehydration from diuretic use and 7 days of diarrhea -Latest Na of 121 -Hold diuretic therapy -Continue NS at 100 ml/hr -Continue to monitor for improvement -BMP Q6H -Nephrology consulted will follow recommendations (3) SALINAS (acute kidney injury) Current Visit: Yes Status: Acute Assessment and Plan: [employer] [place] of 1.76 on presentation in the setting of severe dehydration and dual diuretic use -Controller [place] mark to 2.01, will continue to monitor BMP q6h may be hitting peak -Hold diuretics -Maintenance fluids started NS 100 mls/hr -Continue to monitor for improvement (4) Hypovolemia dehydration Current Visit: Yes Status: Acute Assessment and Plan: Appears to be related to 7 days of diarrhea with dual diuretic therapy, and respiratory distress Pt on lasix 40 mg Daily and aldactone 12.5 mg at home with heavy alcohol use -Continue NS 100 ml/hr and monitor for continued improvement (5) Alcoholism Current Visit: Yes Status: Acute Assessment and Plan: Pts son admits that pt drinks approximately 1/4 a gallon of alcohol per day Maybe contributing to hyponatremia -Librium taper started at 25 mg QID (6) DVT prophylaxis Current Visit: Yes Status: Acute Assessment and Plan: Heparin to be started today - Time Spent with Patient Total time spent is greater than 50% in coordination of care (as documented) at patient's floor/unit and/or counseling patient: Internal Medicine: Result - Labs CBC & Chem 7: 12/19/18 03:50 12/19/18 09:58 Labs: Short CBC 12/18/18 12/19/18 Range/Units 12:21 03:50 WBC 6.7 2.7 L D (4.3-11.1) K/mcL Hgb 16.9 H 14.4 D (11.5-15.4) g/dL Hct 46.9 H 39.7 (35.3-44.9) % Plt Count 129 L 104 L (140-400) K/mcL BMP 12/18/18 12/18/18 12/18/18 12:21 13:34 18:29 Sodium 118 L* 118 L* 120 L* Potassium 5.2 H 4.9 4.5 Chloride 79 L 79 L 82 L Carbon Dioxide 27 25 25 BUN 33 H 34 H 37 H Creatinine 1.71 H 1.76 H 1.98 H Glucose 138 H 127 H 84 Calcium 7.4 L 7.3 L 7.0 L 12/18/18 12/18/18 12/19/18 20:30 23:00 01:20 Sodium 121 L 121 L 121 L Potassium 4.8 4.9 Chloride 83 L 85 L Carbon Dioxide 23 21 L BUN 37 H 38 H Creatinine 1.96 H 2.00 H Glucose 65 L 66 L Calcium 6.9 L 6.6 L 12/19/18 03:50 Sodium 122 L Potassium 5.0 Chloride 86 L Carbon Dioxide 19 L BUN 41 H Creatinine 2.01 H Glucose 65 L Calcium 6.5 L Liver Function 12/19/18 Range/Units 03:50 Total Bilirubin 2.6 H (0.3-1.0) mg/dL AST 295 H (13-39) Units/L ALT 90 H (7-52) Units/L Alkaline Phosphatase 100 (34-104) Units/L Albumin 2.9 L (3.5-5.7) g/dL Urine 12/18/18 Range/Units 15:06 Urine Color Dark Yellow (Yellow) Urine Clarity Cloudy A (Clear) Urine pH 5.0 (5.0-8.0) pH Units Ur Specific [place] 1.017 (1.010-1.025) Urine Protein Negative (Neg-Trace) mg/dL Urine Glucose (UA) Normal (Normal) mg/dL - ABG Interpretation ABG results: ABG ABG pH 7.34 pH Units (7.32-7.45) 12/19/18 05:11 ABG pCO2 39 mmHg (35-45) 12/19/18 05:11 ABG pO2 90 mmHg (85-104) 12/19/18 05:11 ABG O2 Saturation 97 % (95-98) 12/19/18 05:11 PT/INR, D-dimer PT 28.7 Seconds (9.4-12.1) H 12/19/18 03:50 D-Dimer 739 ng/mLFEU (0-500) H 12/18/18 16:26 - Impressions Impressions Chest X-Ray 12/18/18 12:10 IMPRESSION: Focal density in the right lower lung field for which noncontrast chest CT is recommended for complete assessment. Focal infiltrate or possible mass is raised. D/ / 12/18/2018 13:28:52 Satya Varela MD / [facility] Interpreting Provider: Satya Varela MD Consult Discharge Plan - Plan Referrals: Aryan Rees MD [Primary Care Provider] - <Addison Eduardo - Last Filed: 12/19/18 12:29> Hospitalist Progress Note - Encounter Date of Encounter: 12/19/18 Time of Encounter: 08:00 - Exam Vitals: Temp Pulse Resp BP Pulse Ox 97.9 F 97 23 138/118 97 12/19/18 07:00 12/19/18 10:25 12/19/18 10:51 12/19/18 10:25 12/19/18 10:51 Exam: General: alert, appropriate, no distress, resting on 2-3 L NC HEET: dry mucosa, neck supple, no TMG Chest: improved breath sounds, minimal wheezing, faint right basilar crackles Abdomen: soft, NT, NO HSMG; + BS Ext: cap refill 2 seconds; no CCE; pulses 2+ Neuro: A&O x 3; no focal deficits Psych: normal mood and affect Skin: warm, dry Repeat exam ~ 11:30 a thte request of RN: Patient developed respiratory distress, SOB, and was placed on back on BiPap. I ordered STAT CXR which was suspicious for RLL infiltrate in my opinion. Repeat lung exam showed tight breath sounds, diffuse wheezing and focal crackles on right base. - Time Spent with Patient Total time spent is greater than 50% in coordination of care (as documented) at patient's floor/unit and/or counseling patient: 25 - 35 minutes Internal Medicine: Result - Labs CBC & Chem 7: 12/19/18 03:50 12/19/18 09:58 Labs: Short CBC 12/18/18 12/19/18 Range/Units 12:21 03:50 WBC 6.7 2.7 L D (4.3-11.1) K/mcL Hgb 16.9 H 14.4 D (11.5-15.4) g/dL Hct 46.9 H 39.7 (35.3-44.9) % Plt Count 129 L 104 L (140-400) K/mcL BMP 12/18/18 12/18/18 12/18/18 12:21 13:34 18:29 Sodium 118 L* 118 L* 120 L* Potassium 5.2 H 4.9 4.5 Chloride 79 L 79 L 82 L Carbon Dioxide 27 25 25 BUN 33 H 34 H 37 H Creatinine 1.71 H 1.76 H 1.98 H Glucose 138 H 127 H 84 Calcium 7.4 L 7.3 L 7.0 L 12/18/18 12/18/18 12/19/18 20:30 23:00 01:20 Sodium 121 L 121 L 121 L Potassium 4.8 4.9 Chloride 83 L 85 L Carbon Dioxide 23 21 L BUN 37 H 38 H Creatinine 1.96 H 2.00 H Glucose 65 L 66 L Calcium 6.9 L 6.6 L 12/19/18 12/19/18 03:50 09:58 Sodium 122 L 125 L Potassium 5.0 4.5 Chloride 86 L 92 L Carbon Dioxide 19 L 20 L BUN 41 H 42 H Creatinine 2.01 H 1.98 H Glucose 65 L 58 L Calcium 6.5 L 5.7 L* Liver Function 12/19/18 Range/Units 03:50 Total Bilirubin 2.6 H (0.3-1.0) mg/dL AST 295 H (13-39) Units/L ALT 90 H (7-52) Units/L Alkaline Phosphatase 100 (34-104) Units/L Albumin 2.9 L (3.5-5.7) g/dL Urine 12/18/18 Range/Units 15:06 Urine Color Dark Yellow (Yellow) Urine Clarity Cloudy A (Clear) Urine pH 5.0 (5.0-8.0) pH Units Ur Specific [place] 1.017 (1.010-1.025) Urine Protein Negative (Neg-Trace) mg/dL Urine Glucose (UA) Normal (Normal) mg/dL - ABG Interpretation ABG results: ABG ABG pH 7.34 pH Units (7.32-7.45) 12/19/18 05:11 ABG pCO2 39 mmHg (35-45) 12/19/18 05:11 ABG pO2 90 mmHg (85-104) 12/19/18 05:11 ABG O2 Saturation 97 % (95-98) 12/19/18 05:11 PT/INR, D-dimer PT 28.7 Seconds (9.4-12.1) H 12/19/18 03:50 D-Dimer 739 ng/mLFEU (0-500) H 12/18/18 16:26 - Impressions Impressions Chest X-Ray 12/18/18 12:10 IMPRESSION: Focal density in the right lower lung field for which noncontrast chest CT is recommended for complete assessment. Focal infiltrate or possible mass is raised. D/ / 12/18/2018 13:28:52 Satya Varela MD / randi Interpreting Provider: Satya Varela MD Chest X-Ray 12/19/18 11:21 IMPRESSION: No acute process. Old fracture involving the anterior 4th and 5th rib ends. Right lower lobe atelectasis. Mild COPD. D/ / 12/19/2018 11:55:13 Zander Garcia MD / Sim[facility] Lagunas Interpreting Provider: Zander Garcia MD - Attending Attestation I discussed the patient on rounds with Dr. Gillette and Multidisciplinary Rounds team. On exam early this morning, she looked and felt markedly better compared to yesterday. She was breathing easily on minimal oxygen support, had minimal wheezing, and was well-perfused. Then around 11:30 am, her nurse informed me she developed acute distress and was placed back on BiPAP. On repeat exam, she had diffuse wheezing, tight breath sounds with prolonged expiration, and focal crackles in the right base. Clinically, she was in respiratory distress from COPD and likely right basal pneumonia. Chest x-ray was done which confirmed my suspicion. I temporarily postponed her transfer to the floor and she will remain in ICU for now until we can reassess her later today. She may remain in the ICU for close observation if her respiratory status dictates such course. Regarding our concern for PE, we are continuing anticoagulation with heparin drip this afternoon. My suspicion remains low. Nonetheless, we are obtaining BLE Dopplers and a V/Q scan (when her respiratory status stabilizes). We are obtaining a noncontrast CT of the chest to further evaluate the right lung mass versus pneumonia as she may need a formal Pulmonary consult and/or bronchoscopy at some point. Her hyponatremia is slowly improving and is all likely due to volume depletion. However, SIADH does remain in the differential. I spoke with Dr. Villareal and he is following her from a nephrology standpoint. Other than my comments above and documented exam findings, I agree with Dr. Gillette's assessment and plan.
[2018-12-19] MEDS ORDERED: Aminoglycoside Consult 1 EACH MC ONE (07:14)
[2018-12-19 08:16] LABS: VBG Ionized Calcium 0.73 mmol/L (1.15-1.35)
--- NOTE | 2018-12-19 09:52 | Nephrology Consult Note ---
Date of Encounter: 12/19/18 Time of Encounter: 09:45 (Time estimated) Assessment and Plan (1) Hyponatremia Current Visit: Yes Status: Acute (2) SALINAS (acute kidney injury) Current Visit: Yes Status: Acute (3) Metabolic acidosis Current Visit: Yes Status: Acute (4) Alcoholism Current Visit: Yes Status: Acute (5) Respiratory failure with hypoxia and hypercapnia Current Visit: Yes Status: Acute Qualifiers: Chronicity: acute on chronic Qualified Code(s): J96.21 - Acute and chronic respiratory failure with hypoxia; J96.22 - Acute and chronic respiratory failure with hypercapnia History of Present Illness - History of Present Illness Chart review: Patient presented to the ER on 12/18/18 for report of gradually progressive shortness of breath per ER documentation. Past medical history per chart: CHF, COPD, DVT, hypertension, osteoporosis, gout initial vital significant for: Pulse 100. Respiratory rate 24. O2 sats 83%. Was found to have auditory wheezes and increased expiration phase on exam. Initial labs significant for: Elevated d-dimer. Hyponatremia at 118. SALINAS with BUN 33 and creatinine 1.71. GFR 29. 5-15 RBCs in the urine. Admitted to the ICU for: Respiratory failure with hypoxia and hypercapnia. Hyponatremia. SALINAS. Hypovolemia dehydration. Alcoholism. She was treated with nebulizers, steroids, vancomycin/Zosyn, levofloxacin, 1 L normal saline bolus. Subjective: CC: "I don't know" History of present illness: Patient presented to the ER after she became so weak that she could not stand and at that point EMS was called. Diarrhea beginning 9 days ago around December 10. Says that diarrhea was fairly constant throughout the day and anything that she would eat would pass through her bowels quickly. Diarrhea did not wake her from sleep and would begin to resolve as the day went on. Appearance of Veronica's syrup. Denies blood in the stool. Denies history of GI bleed in the past. Denies pain. States that Dr. Rees changed her allopurinol to colchicine on December 08 and she took her first dose around 12/10. She relates the diarrhea to this. She denies any other recent med changes. Denies shortness of breath any worse than her usual with COPD. Intake: Significant decrease in the last 9 days. Baseline is around 1 meal per day. She does not have a good appetite. She has been trying to balance her water intake because her residential child care counselor told her to drink less than 24 ounces per day. Alcohol intake reported as 2-3 maybe 8 ounce (holds her first and second digits up and spans a distance between them that is maybe 2 inches) glasses of Partha Beam to 3 times per week. Output: Diarrhea as above. She usually makes urine at baseline. One bowel movement daily at baseline. Today: Feels better. PMH: Confirms the above other than hypertension which she is unsure of. Hypernatremia for which she has seen Dr. Vazquez. *home meds and allergies autopopulated* Medications and Allergies Albuterol Sulfate [Proair Respiclick] 1 - 2 puff IH Q6H PRN 03/31/15 [History] Allopurinol [Zyloprim] 100 mg PO DAILY 03/31/15 [History] Denosumab [Prolia (For Outpatient Infusion)] 60 mg IV [id number] 03/31/15 [History] Furosemide [Lasix] 40 mg PO DAILY 03/31/15 [History] Lisinopril [Zestril] 2.5 mg PO DAILY 03/31/15 [History] Spironolactone [Aldactone] 12.5 mg PO DAILY 03/31/15 [History] Rivaroxaban [Xarelto] 20 mg PO DAILY #30 tablet 09/26/17 [Rx] Budesonide/Formoterol 160/4.5 [Symbicort 160/4.5] 2 puff IH BIDR 10/17/18 [History] Carvedilol [Coreg] 25 mg PO BID 10/17/18 [History] Cholecalciferol (Vitamin D3) [Vitamin D3] 5,000 unit PO DAILY 12/18/18 [History] Colchicine [Colcrys] 0.6 mg PO DAILY 12/18/18 [History] Ipratropium/Albuterol Sulfate [Combivent Respimat Inhal [place]] 2 inh IH Q6HR PRN 12/18/18 [History] Tiotropium [place] [Spiriva Respimat] 2 inh IH DAILY 12/18/18 [History] Allergy/AdvReac Type Severity Reaction Status Date / Time latex Allergy Unknown Rash Verified 09/26/17 08:03 aspirin AdvReac Unknown Stomach Verified 09/26/17 08:03 upset Review of Systems All Systems review (narrative): Admits: Gradual right eye vision loss. Gradual hearing loss. Trouble swallowing today because her throat is dry. Denies: Fever, weight loss, night sweats, new skin lesions, new rash, epistaxis, chest pain, palpitations, significant dyspnea worse than baseline, significant cough, hemoptysis, nausea, vomiting, pain with urination, hematuria, dizziness, syncope, seizures, confusion. Exam - Vital Signs Vital signs: Initial Vital Signs Temp Pulse Resp BP Pulse Ox 97.1 F L 100 24 145/123 83 12/18/18 12:15 12/18/18 12:15 12/18/18 12:15 12/18/18 12:15 12/18/18 12:15 Vital Signs - Last 8 Hours Temp Pulse Resp BP Pulse Ox 12/19/18 09:30 91 23 123/71 97 12/19/18 08:15 91 24 138/115 98 12/19/18 07:33 98 12/19/18 07:17 89 27 131/93 97 12/19/18 07:00 97.9 F 12/19/18 06:00 88 21 115/85 96 12/19/18 05:00 92 23 130/92 96 12/19/18 04:54 97.2 F L 12/19/18 04:17 16 100 12/19/18 04:00 83 23 113/97 98 12/19/18 03:27 84 12/19/18 03:00 77 20 122/88 100 12/19/18 02:00 78 21 119/86 100 Intake and Output 12/18/18 12/19/18 12/19/18 23:59 07:59 15:59 Intake Total 400 / 400 1100 / 1100 Output Total 400 / 400 200 / 200 Balance 0 / 0 900 / 900 Intake: IV Fluids 400 / 400 1100 / 1100 0.9 % Sodium Chloride 1,000 ML 1000 / 1000 @ 100 mls/hr IVC .Q10H [facility] Rx#: [id number] Calcium Gluconate 1gm/50mL 1 gm 50 / 50 In 50 ml @ 100 mls/hr IVPB ONCE ONE Rx#:[id number] Zosyn 3.375 GM In 0.9 % Sodium 100 / 100 Chloride (Mini-Bag +) 100 ML @ 25 mls/hr IVPB Q12HR [facility] Rx#: [id number] Vancocin 750 MG In 0.9 % Sodium 250 / 250 Chloride 250 ML @ 250 mls/hr IVPB ONCE ONE Rx#:[id number] Levaquin Premix 500mg/100mL 500 100 / 100 mg In 100 ml @ 100 mls/hr IVPB ONCE ONE Rx#:[id number] Oral 0 / 0 Output: Catheter 400 / 400 200 / 200 Other: Stool Size Moderate Moderate Stool Consistency loose liquid liquid Stool Color Brown Weight 59.3 kg Blood Glucose* 125 Patient Weight 12/19/18 23:59 Weight 59.3 kg Additional exam: PE General: Elderly female. No acute distress Skin: Poor turgor Eyes: Moist. Anicteric Neck: No obvious JVD or hepatojugular reflux. No carotid bruits heard. Cardiac: No heart sounds were able to be heard. Exam complicated by patient positioning secondary to back pain. Respiratory: Exam complicated by positioning. Left lung base with Velcro-like low rhonchi especially on expiration with inspiratory wheeze. Scattered rhonchi and wheezes throughout the left lung. Right lung not heard reliably secondary to positioning. Abdomen: Some tenderness of her right and left lower quadrants. No suprapubic tenderness. : Dietrich collection bag showing almost 100 mL of translucent pale yellow urine. Extremities: Capillary refill less than 2 seconds bilateral upper extremities. No bilateral lower extremity edema Neuro: No obvious tremor Psych: Appropriate mood and behavior. Answers questions coherently A/P #Hyponatremia Suspect component of solute deficiency from beer drinkers potomania as well as tea and toast diet in the setting of chronically low urine osmolality. In the setting of suspicious lung mass be wary of SIADH component as of 12/19. Calculated serum osmolality 12/18/18 low at 255 from recent baseline of around 272. UA 12/18/18: Osmolality low at 285. Measurements on 07/03/18 and 05/20/16 showed values even lower. Relatively asymptomatic as of 12/19/18 1 L normal saline given -118 on arrival>> 122 -maintenance normal saline -Serum osmolality pending -Urine sodium 17.7 on 12/18 -Hypernatremia now in the moderate range. #SALINAS Consider secondary to hypoperfusion. Considered dehydrated on admission. This correlates with history of diarrhea. Initial BUN 33 on 12/18/18 from 9 on 11/19/18. Initial creatinine 1.71 on 12/18/18 from 0.86 on 11/19/18. UA 12/18/18: 5-15 RBCs. -Do not suspect postrenal obstruction at this time -consider a component of residual ATN from hypoperfusion. -Creatinine seems to have reached a plateau -Avoid nephrotoxic agents. -Patient on multiple diuretics at home will assess kidneys reabsorptive function with fraction excreted urea. Urine creatinine and urea pending. #Metabolic acidosis non-anion gap Consider secondary to diarrhea as well as some component of RTA Type 1 Urine anion gap: 21.4 -1 L D5W with sodium bicarb. Plan to resume normal saline maintenence after this. #Alcoholism -Per primary team #Respiratory failure -Per primary team Results - Lab Results 12/19/18 03:50 12/19/18 09:58 Most recent lab results 12/18/18 12/19/18 12/19/18 23:00 03:50 05:11 ABG pH 7.34 ABG pCO2 39 ABG pO2 90 ABG HCO3 21 ABG O2 Saturation 97 Calcium 6.6 L 6.5 L Consult Discharge Plan - Plan Referrals: Aryan Rees MD [Primary Care Provider] -
--- NOTE | 2018-12-19 10:25 | Nephrology Consult Note ---
Date of Encounter: 12/19/18 Time of Encounter: 10:22 Assessment and Plan (1) SALINAS (acute kidney injury) Current Visit: Yes Status: Acute Patient with multifactorial acute kidney injury does seem to be prerenal. She came in with a clinical picture this suggests volume depletion this includes decreased oral intake, diarrhea, and ongoing diuretic use. She also has hyponatremia which is associated with volume and solute depletion. With gentle hydration her serum sodium has improved appropriately and her renal function is at a plateau. I recommend avoiding any unnecessary nephrotoxic agents. I recommend titrating medications as needed for renal function. I will give supplemental bicarbonate for the metabolic acidosis. Continue with intravenous fluids and wants her serum sodium is safely above 130 okay to increase the rate of hydration. Additional details can be found in the resident's note. I examined this patient and my medical decision-making was reviewed with the Resident Physician. I agree with the documented findings, disposition and treatment plan as described except to the extent set forth in the notes written by the resident physician and cosigned by myself. (2) Alcoholism Current Visit: Yes Status: Acute (3) COPD exacerbation Current Visit: Yes Status: Acute (4) Hyponatremia Current Visit: Yes Status: Acute (5) Metabolic acidosis Current Visit: Yes Status: Acute (6) Abnormal liver enzymes Current Visit: Yes Status: Acute History of Present Illness - Reason for Consult Consult date: 12/19/18 hyponatremia - Chief Complaint hyponatremia - History of Present Illness Ms. Sands is a 73 yo woman with a history of COPD who presents for the evaluation of respiratory distress. [facility] was consult secondary to hyponatremia and acute kidney injury. The patient reports that she has dyspnea for the past 2 weeks. She was started on diuretic therapy and complained that she had significant urine output. She also reports that she developed diarrhea during this time. She also had decreased oral intake during this time as well. She presented to the hospital secondary to respiratory issues. She was found to have a low blood pressure and also acute kidney injury. She was also found to have hyponatremia. She denies chest pain, nausea, vomiting and she reports her diarrhea is improving. Past Med Surg Social Fam HX - Past Medical History Medical history: CHF, COPD, DVT, hypertension, osteoporosis Additional medical history: gout, ETOH Psychiatric history: no psych history - Past Surgical History Surgical History: AICD Additional surgical history: back surgery, tubal ligation, PPM - Social History Smoking Status: Former smoker Smokeless Tobacco Status: No Alcohol use: occasionally Drug use: none Medications and Allergies Albuterol Sulfate [Proair Respiclick] 1 - 2 puff IH Q6H PRN 03/31/15 [History] Allopurinol [Zyloprim] 100 mg PO DAILY 03/31/15 [History] Denosumab [Prolia (For Outpatient Infusion)] 60 mg IV [id number] 03/31/15 [History] Furosemide [Lasix] 40 mg PO DAILY 03/31/15 [History] Lisinopril [Zestril] 2.5 mg PO DAILY 03/31/15 [History] Spironolactone [Aldactone] 12.5 mg PO DAILY 03/31/15 [History] Rivaroxaban [Xarelto] 20 mg PO DAILY #30 tablet 09/26/17 [Rx] Budesonide/Formoterol 160/4.5 [Symbicort 160/4.5] 2 puff IH BIDR 10/17/18 [History] Carvedilol [Coreg] 25 mg PO BID 10/17/18 [History] Cholecalciferol (Vitamin D3) [Vitamin D3] 5,000 unit PO DAILY 12/18/18 [History] Colchicine [Colcrys] 0.6 mg PO DAILY 12/18/18 [History] Ipratropium/Albuterol Sulfate [Combivent Respimat Inhal [place]] 2 inh IH Q6HR PRN 12/18/18 [History] Tiotropium [place] [Spiriva Respimat] 2 inh IH DAILY 12/18/18 [History] Allergy/AdvReac Type Severity Reaction Status Date / Time latex Allergy Unknown Rash Verified 09/26/17 08:03 aspirin AdvReac Unknown Stomach Verified 09/26/17 08:03 upset Review of Systems All Systems: reviewed and no additional remarkable complaints except as stated (As documented in the history of present illness) Exam - Vital Signs Vital signs: Initial Vital Signs Temp Pulse Resp BP Pulse Ox 97.1 F L 100 24 145/123 83 12/18/18 12:15 12/18/18 12:15 12/18/18 12:15 12/18/18 12:15 12/18/18 12:15 Vital Signs - Last 8 Hours Temp Pulse Resp BP Pulse Ox 12/19/18 09:30 91 23 123/71 97 12/19/18 08:15 91 24 138/115 98 12/19/18 07:33 98 12/19/18 07:17 89 27 131/93 97 12/19/18 07:00 97.9 F 12/19/18 06:00 88 21 115/85 96 12/19/18 05:00 92 23 130/92 96 12/19/18 04:54 97.2 F L 12/19/18 04:17 16 100 12/19/18 04:00 83 23 113/97 98 12/19/18 03:27 84 12/19/18 03:00 77 20 122/88 100 Intake and Output 12/18/18 12/19/18 12/19/18 23:59 07:59 15:59 Intake Total 400 / 400 1100 / 1200 100 / 1200 Output Total 400 / 400 200 / 200 Balance 0 / 0 900 / 1000 100 / 1000 Intake: IV Fluids 400 / 400 1100 / 1200 100 / 1200 0.9 % Sodium Chloride 1,000 ML 1000 / 1000 @ 100 mls/hr IVC .Q10H [facility] Rx#: [id number] Calcium Gluconate 1gm/50mL 1 gm 50 / 50 In 50 ml @ 100 mls/hr IVPB ONCE ONE Rx#:[id number] Zosyn 3.375 GM In 0.9 % Sodium 100 / 200 100 / 200 Chloride (Mini-Bag +) 100 ML @ 25 mls/hr IVPB Q12HR [facility] Rx#: [id number] Vancocin 750 MG In 0.9 % Sodium 250 / 250 Chloride 250 ML @ 250 mls/hr IVPB ONCE ONE Rx#:[id number] Levaquin Premix 500mg/100mL 500 100 / 100 mg In 100 ml @ 100 mls/hr IVPB ONCE ONE Rx#:[id number] Oral 0 / 0 Output: Catheter 400 / 400 200 / 200 Other: Stool Size Moderate Moderate Stool Consistency loose liquid liquid Stool Color Brown Weight 59.3 kg Blood Glucose* 125 Patient Weight 12/19/18 23:59 Weight 59.3 kg - General Appearance General appearance: well-developed, well-nourished EENT: ATNC Neck: supple Respiratory: wheezing, course breath sounds Cardiology: no edema, regular rate Gastrointestinal: no tenderness Integumentary: warm and dry Neurologic: alert and oriented x3 Musculoskeletal: no cyanosis Psychiatric: mood/affect appropriate Results - Lab Results 12/19/18 03:50 12/19/18 09:58 Most recent lab results 12/18/18 12/19/18 12/19/18 23:00 03:50 05:11 ABG pH 7.34 ABG pCO2 39 ABG pO2 90 ABG HCO3 21 ABG O2 Saturation 97 Calcium 6.6 L 6.5 L Consult Discharge Plan - Plan Referrals: Aryan Rees MD [Primary Care Provider] -
[2018-12-19 10:31] LABS: Calcium 5.7 mg/dL (8.6-10.3); Potassium 4.5 mEq/L (3.5-5.1)
[2018-12-19] MEDS ORDERED: Calcium Gluconate 2,000 MG in 0.9 % Sodium Chloride 100 ML IVPB ONE (10:31)
[2018-12-19] MEDS ORDERED: *HR* Dextrose 50 % in Water (Syg) 50 ML SYRINGE IVP ONE (10:34)
[2018-12-19] MEDS ORDERED: D5% in Water 1,000 ML IVC SCH (10:45)
[2018-12-19] MEDS: Budesonide/Formoterol 160/4.5 1 PUFF INH IH SCH ×2 (10:49→19:37)
[2018-12-19] MEDS ORDERED: Sodium Bicarbonate 150 MEQ in D5% in Water 1,000 ML IVC SCH (10:58)
[2018-12-19] MEDS: Heparin 25,000 UNIT/250 ML D5W 25,000 UNIT/250 ML IV.SOLN IVC SCH (10:59)
[2018-12-19] MEDS: D5% in 0.9% NACL 1,000 ML IVC SCH (11:02)
[2018-12-19] MEDS ORDERED: Albuterol 2.5 MG/3 ML NEBULIZER IH PRN (11:38)
[2018-12-19] MEDS ORDERED: Albuterol 2.5 MG/3 ML NEBULIZER ONE (11:40)
[2018-12-19] MEDS: Vancomycin Oral Soln 125 MG/2.5 ML UDC PO SCH ×3 (14:00→19:38)
[2018-12-19 16:42] LABS: Basophils % 0.9 %; Hematocrit 40.8 % (35.3-44.9); Hemoglobin 14.6 g/dL (11.5-15.4); Immature Granulocytes % 8.4 % (0-4); Lymphocytes # 0.1 K/mcL (0.6-4.6); Lymphocytes % 3.7 %; Mean Corpuscular HGB Conc 35.8 g/dL (31.6-35.5); Mean Corpuscular Hemoglobin 34.3 pg (28.0-33.3); Mean Corpuscular Volume 95.8 fL (83.0-100.0); Mean Platelet Volume 11.4 fL (9.4-12.4); Monocytes # 0.2 K/mcL (0.0-1.3); Monocytes % 9.8 %; Platelet Count 102 K/mcL (140-400); Red Blood Count 4.26 M/mcL (3.82-4.97); Red Cell Distribution Width 12.4 % (11.5-14.5); Segmented Neutrophils % 77.2 %; White Blood Count 2.1 K/mcL (4.3-11.1)
[2018-12-19 16:43] LABS: VBG Ionized Calcium 0.81 mmol/L (1.15-1.35)
[2018-12-19 16:48] LABS: Neutrophils # 1.6 K/mcL (1.6-8.9)
[2018-12-19] MEDS ORDERED: Calcium Gluconate 1gm/50mL 1 GM/50 ML BAG IVPB ONE (16:56)
[2018-12-19 17:06] LABS: Calcium 6.9 mg/dL (8.6-10.3); Potassium 4.5 mEq/L (3.5-5.1)
[2018-12-19 17:12] LABS: Reactive Lymphocytes Present (Not Present)
[2018-12-19] MEDS: Nystatin SUSP 5 ML UD.LIQ PO SCH ×2 (17:39→19:39)
[2018-12-19] MEDS: MethylPREDNISolone 40 MG/ML VIAL IVP SCH (17:41)
[2018-12-19 17:50] LABS: Heparin anti-factor XA UFH > 2.00 IU/mL (0.30-0.70)
[2018-12-19] MEDS ORDERED: MethylPREDNISolone 40 MG/ML VIAL IVP SCH (18:00)
[2018-12-19] MEDS ORDERED: Vancomycin 500 MG in 0.9 % Sodium Chloride Mini Bag 100 ML IVPB ONE (19:00)
[2018-12-20 00:56] LABS: VBG Ionized Calcium 0.84 mmol/L (1.15-1.35)
[2018-12-20] MEDS: D5% in 0.9% NACL 1,000 ML IVC SCH ×2 (01:02→05:40)
[2018-12-20] MEDS ORDERED: Calcium Gluconate 1gm/50mL 1 GM/50 ML BAG IVPB ONE (01:14)
[2018-12-20] MEDS: *HR* LORazepam 2 MG/ML VIAL IVP PRN ×2 (01:30→16:00)
[2018-12-20] MEDS: Ipratropium/Albuterol Neb 3 ML IH SCH ×6 (03:56→23:43)
[2018-12-20 04:10] LABS: Hemoglobin 13.3 g/dL (11.5-15.4)
[2018-12-20 04:12] LABS: Hematocrit 36.9 % (35.3-44.9); Mean Corpuscular Hemoglobin 34.5 pg (28.0-33.3); Mean Corpuscular Volume 95.6 fL (83.0-100.0); Mean Platelet Volume 11.8 fL (9.4-12.4); Red Blood Count 3.86 M/mcL (3.82-4.97); Red Cell Distribution Width 12.3 % (11.5-14.5); White Blood Count 1.8 K/mcL (4.3-11.1)
[2018-12-20 04:23] LABS: Activated Partial Thrombo Time 60.7 Seconds (26.0-36.0); INR 1.3; Prothrombin Time 14.2 Seconds (9.4-12.1)
[2018-12-20 04:38] LABS: Platelet Count 97 K/mcL (140-400)
[2018-12-20 04:40] LABS: Calcium 7.1 mg/dL (8.6-10.3); Potassium 3.8 mEq/L (3.5-5.1)
[2018-12-20 04:43] LABS: Albumin 2.8 g/dL (3.5-5.7); Albumin/Globulin Ratio 1.3 (1.1-2.2); Bilirubin,Direct 1.2 mg/dL (0.0-0.2); Bilirubin,Indirect 0.7 mg/dL (0.0-1.2); Bilirubin,Total 1.9 mg/dL (0.3-1.0); Globulin 2.1 g/dL (2.4-3.5); Total Protein 4.9 g/dL (6.4-8.9)
[2018-12-20] MEDS: Piperacillin/Tazobactam 3.375 GM in 0.9 % Sodium Chloride Mini Bag 100 ML IVPB SCH (05:08)
[2018-12-20] MEDS: MethylPREDNISolone 40 MG/ML VIAL IVP SCH ×2 (05:08→17:22)
[2018-12-20 05:20] LABS: Lymphocytes # 0.3 K/mcL (0.6-4.6); Monocytes # 0.3 K/mcL (0.0-1.3); Neutrophils # 1.1 K/mcL (1.6-8.9); Platelet Estimate Decreased (Normal); Reactive Lymphocytes Present (Not Present)
[2018-12-20] MEDS: 0.9 % Sodium Chloride 1,000 ML IVC SCH ×2 (05:40→17:18)
--- NOTE | 2018-12-20 05:58 | Nephrology Progress Note ---
Date of Encounter: 12/20/18 Time of Encounter: 06:30 (Time estimated) - Assessment and Plan (1) Hyponatremia Current Visit: Yes Status: Acute (2) SALINAS (acute kidney injury) Current Visit: Yes Status: Acute (3) Metabolic acidosis Current Visit: Yes Status: Acute (4) Alcoholism Current Visit: Yes Status: Acute (5) Respiratory failure with hypoxia and hypercapnia Current Visit: Yes Status: Acute Qualifiers: Chronicity: acute on chronic Qualified Code(s): J96.21 - Acute and chronic respiratory failure with hypoxia; J96.22 - Acute and chronic respiratory failure with hypercapnia (6) Altered mental status Current Visit: Yes Status: Acute Qualifiers: Qualified Code(s): R41.82 - Altered mental status, unspecified Subjective Interval history: S Nursing staff reports that the patient has been confused and pulled out her left antecubital IV. Patient seen and examined at bedside. O Exam complicated by patient confusion, positioning, and inability to follow certain commands. Gen.: Elderly female. Laying on her side while grabbing bedrail with legs hanging off the bed Eyes: Moist. Anicteric Cardiac: Unable to hear heart sounds. Monitor showed paced rhythm around 75 bp m. Respiratory: Left basilar crackles. Extremely distant. Right heel is not able to be reliably auscultated. GI: Bowel sounds heard. Soft at least in areas able to be accessed on the left side Extremities: No bilateral lower extremity edema. Capillary refill less than 2 seconds bilaterally upper extremities Neuro: [place] 4-5. Patient is able to indicate that she does not know her name, the place, or the date. She answers most other questions with indiscernible mumbling speech. A/P #Hyponatremia Suspect component of solute deficiency from beer drinkers potomania as well as tea and toast diet in the setting of chronically low urine osmolality. In the setting of suspicious lung mass be wary of SIADH component as of 12/19. Calculated serum osmolality 12/18/18 low at 255 from recent baseline of around 272. UA 12/18/18: Osmolality low at 285. Measurements on 07/03/18 and 05/20/16 showed v alues even lower. Initially 118 Serum osmolality low on 12/19 urine sodium 17.7 on 12/18 - 129 -Continue maintenance normal saline #SALINAS Consider secondary to hypoperfusion. Considered dehydrated on admission. This correlates with history of diarrhea. Initial BUN 33 on 12/18/18 from 9 on 11/19/18. Initial creatinine 1.71 on 12/18/18 from 0.86 on 11/19/18. UA 12/18/18: 5-15 RBCs. -consider a component of residual ATN from hypoperfusion. FeUrea at 60.3% suggests some intrinsic component. -Creatinine improving -Avoid nephrotoxic agents. #Metabolic acidosis non-anion gap Consider secondary to diarrhea as well as some component of RTA Type 1 Urine anion gap: 21.4 1 L D5W with sodium bicarb given #Alcoholism -Per primary team #Respiratory failure -Per primary team #Altered Mental Status -consider secondary to alcohol withdrawal. -per primary team Objective - Vital Signs Vital signs: Vital Signs Temp Pulse Resp BP Pulse Ox 12/20/18 04:03 74 12/20/18 04:00 97.5 F L 75 18 125/92 98 12/20/18 03:58 16 99 12/20/18 03:00 76 20 112/86 12/20/18 02:00 77 12 92/71 12/20/18 01:00 116 25 89/74 12/20/18 00:52 103 12/20/18 00:00 97.4 F L 116 22 138/100 93 12/19/18 23:49 16 96 12/19/18 23:00 115 20 108/82 95 12/19/18 22:00 102 20 96/76 93 12/19/18 21:00 102 20 97/82 100 12/19/18 20:00 97.4 F L 98 20 110/90 100 12/19/18 19:39 23 96 12/19/18 19:00 100 20 104/86 100 12/19/18 18:00 94 18 111/76 97 12/19/18 17:30 93 18 101/80 97 12/19/18 16:19 101 20 106/94 91 12/19/18 16:10 16 97 12/19/18 15:34 89 16 113/84 98 12/19/18 14:00 100 19 104/78 93 12/19/18 13:00 93 20 118/91 98 12/19/18 12:30 100 12/19/18 12:16 96 21 105/83 99 09/03/19 12:00 97.8 F 09/03/19 11:30 103 21 88/71 95 12/19/18 10:51 23 97 12/19/18 10:25 97 23 138/118 97 12/19/18 09:30 91 23 123/71 97 12/19/18 08:15 91 24 138/115 98 12/19/18 07:33 98 12/19/18 07:17 89 27 131/93 97 12/19/18 07:00 97.9 F 12/19/18 06:00 88 21 115/85 96 Intake and Output 12/19/18 12/19/18 12/20/18 15:59 23:59 07:59 Intake Total 1220 / 2651.7 331.7 / 2651.7 139.3 / 139.3 Output Total 200 / 900 300 / 900 400 / 400 Balance 1020 / 1751.7 31.7 / 1751.7 -260.7 / -260.7 Intake: IV Fluids 1220 / 2621.7 301.7 / 2621.7 139.3 / 139.3 0.9 % Sodium Chloride 1,000 ML 1000 / 2000 @ 100 mls/hr IVC .Q10H [facility] Rx#: [id number] Heparin 25,000 UNIT/250 ML D5W 51.7 / 51.7 89.3 / 89.3 25,000 unit In 250 ml @ 14 UNIT /KG/HR 8.316 mls/hr IVC .Q24H [facility] Rx#:[id number] Calcium Gluconate 2,000 MG In 0 120 / 120 .9 % Sodium Chloride 100 ML @ 220 mls/hr IVPB ONCE ONE Rx#: [id number] Calcium Gluconate 1gm/50mL 1 gm 50 / 50 50 / 50 In 50 ml @ 100 mls/hr IVPB ONCE ONE Rx#:[id number] Zosyn 3.375 GM In 0.9 % Sodium 100 / 300 100 / 300 Chloride (Mini-Bag +) 100 ML @ 25 mls/hr IVPB Q12HR [facility] Rx#: [id number] Vancocin 500 MG In 0.9 % Sodium 100 / 100 Chloride (Mini-Bag +) 100 ML @ 100 mls/hr IVPB ONCE ONE Rx#: [id number] Oral 30 / 30 Output: Catheter 200 / 900 300 / 900 400 / 400 Other: Meal Dinner Percent of Meal Consumed 0% Stool Size Moderate Large Small Stool Consistency liquid loose loose liquid liquid Stool Color Brown Brown # Bowel Movements 2 Weight 64 kg Blood Glucose* 114 110 Patient Weight 12/20/18 23:59 Weight 64 kg - Lab 12/20/18 03:26 12/20/18 11:22 Most recent lab results 12/20/18 12/20/18 03:26 03:26 Calcium 7.1 L Phosphorus 4.4 Consult Discharge Plan - Plan Referrals: Aryan Rees MD [Primary Care Provider] -
--- NOTE | 2018-12-20 07:47 | Internal Med Progress Note ---
Hospitalist Progress Note - Encounter Date of Encounter: 12/20/18 Time of Encounter: 07:46 - Exam Vitals: Temp Pulse Resp BP Pulse Ox 97.5 F L 73 15 115/72 97 12/20/18 04:00 12/20/18 06:00 12/20/18 06:00 12/20/18 06:00 12/20/18 06:00 Exam: General: Pt appears well laying comfortably in bed. Head exam: Present: atraumatic, normocephalic Eye exam: Present: EOMI, PERRL Neck exam general surgery: Present: supple. Absent: lymphadenopathy Respiratory exam: Much improved air movement with slight wheezes still present on expiration Cardiovascular exam: Present: RRR. Absent: diastolic murmur, systolic murmur GI/Abdominal exam: Present: normal bowel sounds, soft. Absent: tenderness Extremities exam: Present: full ROM. Absent: calf tenderness. Bruising present on the bilateral upper extremities. Trace edema of the LE. Neurological exam: Present: alert& oriented x3. No focal deficits noted. - Assessment and Plan (1) Respiratory failure with hypoxia and hypercapnia Current Visit: Yes Status: Acute Assessment and Plan: Patient presenting with acute respiratory distress most likely secondary to PNA/COPD exacerbation CXR with focal density in the RLL could be focal infiltrate or possible mass. PE lower on differential due to patient currently on Xarelto Patient currently requiring 3L O2 via NC with O2 saturation of 98% Lactic Acid of 1.0 D-Dimer elevated at 739 CT Chest with signs of possible PNA Doppler US bilateral LE -On 3L of O2 via NC with O2 saturation at 93% -MRSA swab negative. Vancomycin IV stopped -Zosyn day 3 and Azithromycin day 2 -Solu-Medrol 40 q12h, duonebs, and symbicort therapy (2) Hyponatremia Current Visit: Yes Status: Acute Assessment and Plan: Na of 118 x2 Patient on lasix 40 mg and aldactone 12.5 mg daily in the setting of alcoholism Pt without acute AMS with hyponatremia Appears to be related to dehydration from diuretic use and 7 days of diarrhea -Latest Na up to 126 -Hold diuretic therapy -Continue to monitor for improvement as Diarrhea resolves -Nephrology consulted, will follow recommendations (3) SALINAS (acute kidney injury) Current Visit: Yes Status: Acute Assessment and Plan: [employer]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 diff -Peripheral Blood Smear to be read by pathology will follow for results (5) C. difficile colitis Current Visit: Yes Status: Acute Assessment and Plan: Patient's BiPAP and unable to obtain history upon presentation, but after off BiPAP admits to 7 days of diarrhea that has not been controlled by medications. Patient without known recent antibiotic use Stool C. difficile toxin B gene positive on check. -Vancomycin 125 mg PO QID (6) Hypovolemia dehydration Current Visit: Yes Status: Acute Assessment and Plan: Appears to be related to 7 days of diarrhea with dual diuretic therapy, and respiratory distress Pt on lasix 40 mg Daily and aldactone 12.5 mg at home with heavy alcohol use -pt given 2 L of IV fluids -Continue to hold diuretics (7) Alcoholism Current Visit: Yes Status: Acute Assessment and Plan: Pts son admits that pt drinks approximately 1/4 a gallon of alcohol per day Maybe contributing to hyponatremia LFTs elevated with AST of 248 and ALT of 88 -Librium taper started at 25 mg QID -Liver US unremarkable -GI consulted, appreciate recommendations (8) Thrombocytopenia Current Visit: Yes Status: Acute (9) Hypocalcemia Current Visit: Yes Status: Acute (10) DVT prophylaxis Current Visit: Yes Status: Acute Assessment and Plan: Heparin stopped due to decreasing platelet count. Xarelto to be restarted. - Time Spent with Patient Total time spent is greater than 50% in coordination of care (as documented) at patient's floor/unit and/or counseling patient: Internal Medicine: Result - Labs CBC & Chem 7: 12/20/18 03:26 12/20/18 03:26 Labs: Short CBC 12/19/18 12/20/18 Range/Units 16:28 03:26 WBC 2.1 L 1.8 L (4.3-11.1) K/mcL Hgb 14.6 13.3 (11.5-15.4) g/dL Hct 40.8 36.9 (35.3-44.9) % Plt Count 102 L 97 L (140-400) K/mcL Neutrophils # 1.6 1.1 L (1.6-8.9) K/mcL BMP 12/19/18 12/19/18 12/20/18 09:58 16:28 03:26 Sodium 125 L 126 L 126 L Potassium 4.5 4.5 3.8 Chloride 92 L 89 L 90 L Carbon Dioxide 20 L 24 23 BUN 42 H 46 H 47 H Creatinine 1.98 H 2.03 H 1.72 H Glucose 58 L 96 126 H Calcium 5.7 L* 6.9 L 7.1 L Liver Function 12/20/18 Range/Units 03:26 Total Bilirubin 1.9 H (0.3-1.0) mg/dL Direct Bilirubin 1.2 H (0.0-0.2) mg/dL AST 248 H (13-39) Units/L ALT 88 H (7-52) Units/L Alkaline Phosphatase 81 (34-104) Units/L Albumin 2.8 L (3.5-5.7) g/dL - ABG Interpretation ABG results: ABG ABG pH 7.34 pH Units (7.32-7.45) 12/19/18 05:11 ABG pCO2 39 mmHg (35-45) 12/19/18 05:11 ABG pO2 90 mmHg (85-104) 12/19/18 05:11 ABG O2 Saturation 97 % (95-98) 12/19/18 05:11 PT/INR, D-dimer PT 14.2 Seconds (9.4-12.1) H D 12/20/18 03:26 D-Dimer 739 ng/mLFEU (0-500) H 12/18/18 16:26 - Impressions Impressions Chest CT 12/19/18 07:02 IMPRESSION: At least moderate emphysema. Diffuse bronchial wall thickening, greater on the right, a nonspecific finding which can be seen with infectious or inflammatory etiologies to include smoking. Right middle lobe and mostly dependent bilateral lower lobe airspace disease, atelectasis and/or pneumonia. Airspace disease within the right lower lobe is obscured by motion artifact. D/ / Kiera Whalen Cha, MD / Kiera Whalen Cha, MD Interpreting Provider: Kiera Whalen Cha, MD Retroperitoneum Ultrasound 12/19/18 10:36 IMPRESSION: Unremarkable ultrasound of the kidneys. D/ / Kenton Powers MD / Kenton Powers MD Interpreting Provider: Kenton Powers MD Chest X-Ray 12/19/18 11:21 IMPRESSION: No acute process. Old fracture involving the anterior 4th and 5th rib ends. Right lower lobe atelectasis. Mild COPD. D/ / 12/19/2018 11:55:13 Zander Garcia MD / Simran Lagunas Interpreting Provider: Zander Garcia MD Liver Ultrasound 12/19/18 12:51 IMPRESSION: Unremarkable right upper quadrant ultrasound. D/ / Kenton Powers MD / Kenton Powers MD Interpreting Provider: Kenton Powers MD Consult Discharge Plan - Plan Referrals: Aryan Rees MD [Primary Care Provider] - (1) Respiratory failure with hypoxia and hypercapnia Qualifiers: Chronicity: acute on chronic Qualified Code(s): J96.21 - Acute and chronic respiratory failure with hypoxia; J96.22 - Acute and chronic respiratory failure with hypercapnia
[2018-12-20] MEDS: Nystatin SUSP 5 ML UD.LIQ PO SCH ×4 (08:33→21:12)
[2018-12-20] MEDS: Vancomycin Oral Soln 125 MG/2.5 ML UDC PO SCH ×4 (08:34→21:12)
[2018-12-20] MEDS ORDERED: Azithromycin 250 MG TABLET PO SCH (09:00)
--- NOTE | 2018-12-20 09:37 | Gastroenterology Consult Note ---
<Jacquelyn Beltran - Last Filed: 12/20/18 09:29> Date of Encounter: 12/20/18 Time of Encounter: 09:30 - Assessment and plan (1) Elevated LFTs Current Visit: Yes Status: Acute Assessment and plan: Ms. Sands presented to the ED due to respiratory failure was placed on BiPAP At admission her LFTs were elevated AST noted to be 295, ALT 90 This morning AST 248, ALT 88 She had a liver ultrasound which did not show any acute abnormalities Does have significant alcohol use history with 1/4 gallon of whiskey intake daily reports at least 20 years of alcohol use history She is currently on CIWA protocol not oriented to person place or time She does appear to have palmar erythema with spider angiomata (2) C. difficile colitis Current Visit: Yes Status: Acute Assessment and plan: Presented to the ED with acute respiratory failure had reported 7 days history of nonbloody diarrhea Stool C. difficile toxin B gene is positive Currently on oral vancomycin - Time Spent With Patient Total time spent is greater than 50% in coordination of care (as documented) at patient's floor/unit and/or counseling patient: GI History of Present Illness - Data of Consult Requesting Physician: Addison Eduardo MD - Consult Narrative History of present illness: Ms. Sands is a 73 year old female with past medical history COPD, CHF with EF of 50-55%, hypertension who presented to the ED on 12/18/18 with respiratory distress requiring BiPAP. Current information is obtained from chart review as the patient at this time is not oriented to person place or time. At admission patient reported progressive shortness of breath. Son but she refused to present to the hospital initially. Son reported this morning is a current tobacco user and drinks approximately 1 L was he. They. Initially she was sta rted on BiPAP oxygen saturation was 82% with respiratory rate of 24. She had a CT of the chest which showed right middle lobe and bilateral lower lobe airspace disease with diffuse bronchial wall thickening greater on the right side. At presentation she was also hyponatremic with sodium of 120 this morning 126. There is concern for liver cirrhosis given elevated LFTs at presentation AST 295, ALT 90 this morning AST 248, ALT 88 with total bilirubin 1.9 indirect 1.2. She has never had a colonoscopy or an EGD. She had a liver ultrasound which did not show any specific findings. She does report for daily alcohol use for the past 20 years but unable to elicit how much. Because of her altered status further information cannot be obtained from patient. Past Med Surg Social Fam HX - Past Medical History Medical history: CHF, COPD, DVT, hypertension, osteoporosis Additional medical history: gout, ETOH Psychiatric history: no psych history - Past Surgical History Surgical History: AICD Additional surgical history: back surgery, tubal ligation, PPM - Social History Smoking Status: Former smoker Smokeless Tobacco Status: No Alcohol use: occasionally Drug use: none ROS unobtainable: due to mental status - Gastrointestinal Gastrointestinal: Absent: abdominal pain, diarrhea, vomiting - EENT Nose, mouth and throat: Absent: dysphagia, sore throat - Cardiovascular Cardiovascular ROS: Absent: palpitations - Respiratory Respiratory IM: Present: dyspnea. Absent: cough, hemoptysis - Musculoskeletal Musculoskeletal ROS GI: Absent: back pain - Constitutional Vitals: Temp Pulse Resp BP Pulse Ox 95.9 F L 79 20 102/81 95 12/20/18 09:05 12/20/18 08:30 12/20/18 08:30 12/20/18 08:30 12/20/18 08:30 - Head Head exam: Present: atraumatic, normal inspection - Eye Eye exam: Present: EOMI, sclera anicteric. Absent: conjunctival injection - ENT ENT exam: Present: mucous membranes moist, normal oropharynx - Respiratory Respiratory exam: Present: CTAB. Absent: rales, rhonchi - Cardiovascular Cardiovascular exam: Present: RRR, +S1, +S2 - GI/Abdominal GI/Abdominal exam: Present: normal bowel sounds, soft. Absent: guarding, tenderness - Extremities Exam Extremities exam: Absent: pedal edema - Psychiatric Additional comments: Not oriented to person place or time - Skin Skin exam: Present: dry, erythema (palmar), intact Results - Labs CBC & Chem 7: 12/20/18 03:26 12/20/18 03:26 Labs: Last Result 12/20/18 03:26 Calcium 7.1 L Entire Visit 12/20/18 12/20/18 12/20/18 03:26 03:26 03:26 Hgb 13.3 Hct 36.9 PT 14.2 H D Total Bilirubin 1.9 H AST 248 H ALT 88 H - ABG ABG results: ABG ABG pH 7.34 pH Units (7.32-7.45) 12/19/18 05:11 ABG pCO2 39 mmHg (35-45) 12/19/18 05:11 ABG pO2 90 mmHg (85-104) 12/19/18 05:11 ABG O2 Saturation 97 % (95-98) 12/19/18 05:11 PT/INR, D-dimer PT 14.2 Seconds (9.4-12.1) H D 12/20/18 03:26 D-Dimer 739 ng/mLFEU (0-500) H 12/18/18 16:26 - Impressions Impressions Chest CT 12/19/18 07:02 IMPRESSION: At least moderate emphysema. Diffuse bronchial wall thickening, greater on the right, a nonspecific finding which can be seen with infectious or inflammatory etiologies to include smoking. Right middle lobe and mostly dependent bilateral lower lobe airspace disease, atelectasis and/or pneumonia. Airspace disease within the right lower lobe is obscured by motion artifact. D/ / Kiera Whalen Cha, MD / Kiera Whalen Cha, MD Interpreting Provider: Kiera Whalen Cha, MD Retroperitoneum Ultrasound 12/19/18 10:36 IMPRESSION: Unremarkable ultrasound of the kidneys. D/ / Kenton Powers MD / Kenton Powers MD Interpreting Provider: Kenton Powers MD Chest X-Ray 12/19/18 11:21 IMPRESSION: No acute process. Old fracture involving the anterior 4th and 5th rib ends. Right lower lobe atelectasis. Mild COPD. D/ / 12/19/2018 11:55:13 Zander Garcia MD / Simran Lagunas Interpreting Provider: Zander Garcia MD Liver Ultrasound 12/19/18 12:51 IMPRESSION: Unremarkable right upper quadrant ultrasound. D/ / Kenton Powers MD / Kenton Powers MD Interpreting Provider: Kenton Powers MD Consult Discharge Plan - Plan Referrals: Aryan Rees MD [Primary Care Provider] - <Jaspal Neri - Last Filed: 12/20/18 16:49> Date of Encounter: 12/20/18 Time of Encounter: 13:00 - Time Spent With Patient Total time spent is greater than 50% in coordination of care (as documented) at patient's floor/unit and/or counseling patient: GI History of Present Illness - Data of Consult Requesting Physician: Addison Eduardo MD - Consult Narrative History of present illness: Ms. Sands is a 73 year old female - Constitutional Vitals: Temp Pulse Resp BP Pulse Ox 96.2 F L 78 19 98/66 96 12/20/18 16:00 12/20/18 16:00 12/20/18 16:00 12/20/18 16:00 12/20/18 16:00 Results - Labs CBC & Chem 7: 12/20/18 03:26 12/20/18 11:22 Labs: Last Result 12/20/18 11:22 Calcium 6.7 L Entire Visit 12/20/18 03:26 PT 14.2 H D - ABG ABG results: ABG ABG pH 7.22 pH Units (7.32-7.45) L 12/20/18 12:46 ABG pCO2 77 mmHg (35-45) H* 12/20/18 12:46 ABG pO2 135 mmHg (85-104) H 12/20/18 12:46 ABG O2 Saturation 98 % (95-98) 12/20/18 12:46 PT/INR, D-dimer PT 14.2 Seconds (9.4-12.1) H D 12/20/18 03:26 D-Dimer 739 ng/mLFEU (0-500) H 12/18/18 16:26 - Impressions Impressions Retroperitoneum Ultrasound 12/19/18 10:36 IMPRESSION: Unremarkable ultrasound of the kidneys. D/ / Kenton Powers MD / Kenton Powers MD Interpreting Provider: Kenton Powers MD Liver Ultrasound 12/19/18 12:51 IMPRESSION: Unremarkable right upper quadrant ultrasound. D/ / Kenton Powers MD / Kenton Powers MD Interpreting Provider: Kenton Powers MD - Attending Attestation I examined this patient and my medical decision-making was reviewed with the Resident Physician. I agree with the documented findings, disposition and treatment plan as described except to the extent set forth below. Patient seen. Patient is currently confused on BiPAP. On examination: Abdomen is soft. Assessment: Pt with respiratory failure current be on BiPAP. Alcoholic liver disease with elevated LFTs. Imaging with no obvious cirrhosis. Recommendation: Once patient respiratory and cardiovascular status stable then w e will do an EGD to rule out varices because of a concern that she may need chronic anticoagulation
[2018-12-20] MEDS: Budesonide/Formoterol 160/4.5 1 PUFF INH IH SCH ×2 (11:00→19:50)
[2018-12-20 12:01] LABS: VBG Ionized Calcium 0.84 mmol/L (1.15-1.35)
--- NOTE | 2018-12-20 12:12 | Nephrology Progress Note ---
Date of Encounter: 12/20/18 Time of Encounter: 12:09 - Assessment and Plan (1) SALINAS (acute kidney injury) Current Visit: Yes Status: Acute Patient with multifactorial acute kidney injury that seems to be prerenal. She came in with a clinical picture this suggests volume depletion that includes decreased oral intake, diarrhea, and ongoing diuretic use. She also has hyponatremia which is associated with volume and solute depletion. With gentle hydration her serum sodium and renal function have improved. I recommend avoiding any unnecessary nephrotoxic agents. I recommend titrating medications as needed for renal function. Supplemental bicarbonate for the metabolic acidosis was successful with a normal serum bicarbonate level. Continue with intravenous fluids Additional details can be found in the resident's note. I examined this patient and my medical decision-making was reviewed with the Resident Physician. I agree with the documented findings, disposition and treatment plan as described except to the extent set forth in the notes written by the resident physician and cosigned by myself. (2) Alcoholism Current Visit: Yes Status: Acute (3) COPD exacerbation Current Visit: Yes Status: Acute (4) Hyponatremia Current Visit: Yes Status: Acute (5) Metabolic acidosis Current Visit: Yes Status: Acute (6) Abnormal liver enzymes Current Visit: Yes Status: Acute Subjective Principal diagnosis: SALINAS Interval history: The patient was saying. She is not one to answer questions. She is less re sponsive than she was yesterday. Objective - Vital Signs Vital signs: Vital Signs Temp Pulse Resp BP Pulse Ox 12/20/18 10:30 76 19 106/85 95 12/20/18 09:30 104 21 98/76 96 12/20/18 09:05 95.9 F L 12/20/18 08:30 79 20 102/81 95 12/20/18 07:30 80 19 110/71 93 12/20/18 06:00 73 15 115/72 97 12/20/18 05:00 104 15 145/133 86 12/20/18 04:03 74 12/20/18 04:00 97.5 F L 75 18 125/92 98 12/20/18 03:58 16 99 12/20/18 03:00 76 20 112/86 12/20/18 02:00 77 12 92/71 12/20/18 01:00 116 25 89/74 12/20/18 00:52 103 12/20/18 00:00 97.4 F L 116 22 138/100 93 12/19/18 23:49 16 96 12/19/18 23:00 115 20 108/82 95 12/19/18 22:00 102 20 96/76 93 12/19/18 21:00 102 20 97/82 100 12/19/18 20:00 97.4 F L 98 20 110/90 100 12/19/18 19:39 23 96 12/19/18 19:00 100 20 104/86 100 12/19/18 18:00 94 18 111/76 97 12/19/18 17:30 93 18 101/80 97 12/19/18 16:19 101 20 106/94 91 12/19/18 16:10 16 97 12/19/18 15:34 89 16 113/84 98 12/19/18 14:00 100 19 104/78 93 12/19/18 13:00 93 20 118/91 98 12/19/18 12:30 100 12/19/18 12:16 96 21 105/83 99 Intake and Output 12/19/18 12/20/18 12/20/18 23:59 07:59 15:59 Intake Total 331.7 / 2651.7 139.3 / 239.3 100 / 239.3 Output Total 300 / 900 400 / 525 125 / 525 Balance 31.7 / 1751.7 -260.7 / -285.7 -25 / -285.7 Intake: IV Fluids 301.7 / 2621.7 139.3 / 239.3 100 / 239.3 Heparin 25,000 UNIT/250 ML D5W 51.7 / 51.7 89.3 / 89.3 25,000 unit In 250 ml @ 14 UNIT /KG/HR 8.316 mls/hr IVC .Q24H [facility] Rx#:[id number] Calcium Gluconate 1gm/50mL 1 gm 50 / 50 50 / 50 In 50 ml @ 100 mls/hr IVPB ONCE ONE Rx#:[id number] Zosyn 3.375 GM In 0.9 % Sodium 100 / 300 100 / 100 Chloride (Mini-Bag +) 100 ML @ 25 mls/hr IVPB Q12HR [facility] Rx#: [id number] Vancocin 500 MG In 0.9 % Sodium 100 / 100 Chloride (Mini-Bag +) 100 ML @ 100 mls/hr IVPB ONCE ONE Rx#: [id number] Oral 30 Output: Catheter 300 / 900 400 / 525 125 / 525 Other: Meal Dinner Percent of Meal Consumed 0% Stool Size Large Small Stool Consistency loose loose liquid liquid Stool Color Brown Brown # Bowel Movements 2 Weight 64 kg Blood Glucose* 110 101 Patient Weight 12/20/18 23:59 Weight 64 kg - General Appearance General appearance: Present: well-developed, well-nourished EENT: Present: ATNC Cardiology: Present: regular rate Integumentary: Present: warm and dry - Lab 12/20/18 03:26 12/20/18 03:26 Most recent lab results 12/20/18 12/20/18 03:26 03:26 Calcium 7.1 L Phosphorus 4.4 Consult Discharge Plan - Plan Referrals: Aryan Rees MD [Primary Care Provider] -
[2018-12-20 12:15] LABS: Calcium 6.7 mg/dL (8.6-10.3); Potassium 4.1 mEq/L (3.5-5.1)
[2018-12-20 12:55] LABS: ABG Base Excess 1 mEq/L (-2 to 3); ABG HCO3 31 mEq/L (21-27); ABG Oxygen Saturation 98 % (95-98); ABG PCO2 77 mmHg (35-45); ABG PH 7.22 pH Units (7.32-7.45); ABG PO2 135 mmHg (85-104); ABG TCO2 34 mEq/L (20-26)
[2018-12-20] MEDS: *HR* Rivaroxaban 15 MG TABLET PO SCH ×2 (13:07→16:01)
[2018-12-20] MEDS ORDERED: *HR* LORazepam 2 MG/ML VIAL IVP PRN ×2 (13:22)
--- NOTE | 2018-12-20 13:24 | Pulmonology Consult Note ---
<Esa Gillette - Last Filed: 12/20/18 14:40> Date of Encounter: 12/20/18 Time of Encounter: 13:24 Assessment and Plan (1) Respiratory failure with hypoxia and hypercapnia Current Visit: Yes Status: Acute Patient presenting with acute respiratory distress most likely secondary to PNA/COPD exacerbation CXR with focal density in the RLL could be focal infiltrate or possible mass. PE lower on differential due to patient currently on Xarelto Patient currently requiring 3L O2 via NC with O2 saturation of 98% Lactic Acid of 1.0 D-Dimer elevated at 739 CT Chest with signs of possible PNA vs atelectasis Doppler US bilateral LE -On BiPAP, continue to monitor for improvement and wean when possible -MRSA swab negative. Vancomycin IV stopped -Zosyn day 3 and Azithromycin day 2, will stop abx at this time due to C dif -Solu-Medrol 40 q12h, duonebs, and symbicort therapy Qualifiers: Chronicity: acute on chronic Qualified Code(s): J96.21 - Acute and chronic respiratory failure with hypoxia; J96.22 - Acute and chronic respiratory failure with hypercapnia (2) Hyponatremia Current Visit: Yes Status: Acute Na of 118 x2 Patient on lasix 40 mg and aldactone 12.5 mg daily in the setting of alcoholism Pt without acute AMS with hyponatremia Appears to be related to dehydration from diuretic use and 7 days of diarrhea -Latest Na up to 126 -Hold diuretic therapy -Continue to monitor for improvement as Diarrhea resolves -Nephrology consulted, will follow recommendations (3) SALINAS (acute kidney injury) Current Visit: Yes Status: Acute Panel Gluer of 1.76 on presentation in the setting of severe dehydration and dual diuretic use Panel Gluer mark to 2.01 12/19/18 Pt given 2L of IV fluids -Panel Gluer improving, down to 1.74 today -Hold diuretics -Continue to monitor for improvement (4) Leukopenia Current Visit: Yes Status: Acute Pt with WBC of 6.7 on presentation which is down to 1.8 9/4 in the setting of an active infection with PNA and C. diff -Peripheral Blood Smear to be read by pathology will follow for results Qualifiers: Leukopenia type: unspecified Qualified Code(s): D72.819 - Decreased white blood cell count, unspecified (5) C. difficile colitis Current Visit: Yes Status: Acute Patient's BiPAP and unable to obtain history upon presentation, but after off BiPAP admits to 7 days of diarrhea that has not been controlled by medications. Patient without known recent antibiotic use Stool C. difficile toxin B gene positive on check. -Vancomycin 125 mg PO QID (6) Hypovolemia dehydration Current Visit: Yes Status: Acute Appears to be related to 7 days of diarrhea with dual diuretic therapy, and respiratory distress Pt on lasix 40 mg Daily and aldactone 12.5 mg at home with heavy alcohol use -pt given 2 L of IV fluids -Continue to hold diuretics (7) Alcoholism Current Visit: Yes Status: Acute Pts son admits that pt drinks approximately 1/4 a gallon of alcohol per day Maybe contributing to hyponatremia LFTs elevated with AST of 248 and ALT of 88 -Librium taper started at 25 mg QID -Liver US unremarkable -GI consulted, appreciate recommendations (8) Thrombocytopenia Current Visit: Yes Status: Acute On admission pt with Platelet count of 129 which was lower than her previous lab results of 270. Platelet count has now dropped to 97 9/4 while pt on heparin -Hold heparin due to risk of HIT and sent off HIT panel -Restart xarelto -Peripheral Smear pending, will follow results (9) Hypocalcemia Current Visit: Yes Status: Acute Calcium on admission of 7.0 which has decreased to 6.7 currently -Ionized Calcium of 0.84 up slightly from 0.81 after receiving calcium gluconate -Supplement with 2 grams of calcium gluconate (10) DVT prophylaxis Current Visit: Yes Status: Acute Restart Xarelto History of Present Illness Consult date: 12/20/18 Chief complaint: SOB History of present illness: Ms. Sands is a 73 year old female with history difficult to obtain due to patient's current respiratory distress and being on the BiPAP. Patient's son at bedside, but has limited knowledge of mother's medical conditions. Per medication review patient is on several respiratory-related medications and is on several cardiac medications including a beta felice, Lasix, spironolactone, xarelto, and lisinopril. According to son patient has had a couple days of progressive shortness of breath which he states patient should have come in earlier for but refused until today. Patient's son also states patient is a cigarette smoker and drinks approximately one fourth of a gallon of whiskey per day at home. En route patient was given 3 DuoNeb's by EMS. Upon arrival to the ED she was having trouble conversing due to dyspnea and was started on BiPAP as initial O2 saturation was at 83% and a respiratory rate of 24. Patient's oxygenation improved once BiPAP was started with current O2 saturation of 96%. All other vital signs stable with heart rate of 95%, respiratory rate elevated at 24, and most recent blood pressure 111/88. CXR with a focal density in the right lower lung field. Labs significant for a sodium of 118 and creatinine of 1.76. In the ED patient was given a dose of Levaquin, Solu-Medrol, and started on Proventil nebs. Since this time pt has been on and off the BiPAP, currently back on BiPAP after several days of Azithromycin and Zosyn abx therapy. Pt has also confirmed she has been have diarrhea for the past week and a screen was done revealing C diff toxin. PT was started on Vancomycin oral yesterday. Sodium has improved up to 126. Pt currently on CIWA protocol for alcohol withdrawal. Pt also has had a precipitous drop in platelet and white blood count which is being evaluated by a blood smear on awaiting results. Past Med Surg Social Fam HX - Past Medical History Medical history: CHF, COPD, DVT, hypertension, osteoporosis Additional medical history: gout, ETOH Psychiatric history: no psych history - Past Surgical History Surgical History: AICD Additional surgical history: back surgery, tubal ligation, PPM - Social History Smoking Status: Former smoker Smokeless Tobacco Status: No Alcohol use: occasionally Drug use: none Medications and Allergies Albuterol Sulfate [Proair Respiclick] 1 - 2 puff IH Q6H PRN 03/31/15 [History] Allopurinol [Zyloprim] 100 mg PO DAILY 03/31/15 [History] Denosumab [Prolia (For Outpatient Infusion)] 60 mg IV [id number] 03/31/15 [History] Furosemide [Lasix] 40 mg PO DAILY 03/31/15 [History] Lisinopril [Zestril] 2.5 mg PO DAILY 03/31/15 [History] Spironolactone [Aldactone] 12.5 mg PO DAILY 03/31/15 [History] Rivaroxaban [Xarelto] 20 mg PO DAILY #30 tablet 09/26/17 [Rx] Budesonide/Formoterol 160/4.5 [Symbicort 160/4.5] 2 puff IH BIDR 10/17/18 [History] Carvedilol [Coreg] 25 mg PO BID 10/17/18 [History] Cholecalciferol (Vitamin D3) [Vitamin D3] 5,000 unit PO DAILY 12/18/18 [History] Colchicine [Colcrys] 0.6 mg PO DAILY 12/18/18 [History] Ipratropium/Albuterol Sulfate [Combivent Respimat Inhal Quinlan] 2 inh IH Q6HR PRN 12/18/18 [History] Tiotropium [place] [Spiriva Respimat] 2 inh IH DAILY 12/18/18 [History] Allergy/AdvReac Type Severity Reaction Status Date / Time latex Allergy Unknown Rash Verified 09/26/17 08:03 aspirin AdvReac Unknown Stomach Verified 09/26/17 08:03 upset ROS unobtainable: other (Pt on BiPAP currently) All Systems: The remainder of the systems were reviewed and are negative Physical Examination Vital Signs: Vital Signs, Last 4 Hours Temp Pulse Resp BP Pulse Ox 12/20/18 12:31 96.0 F L 12/20/18 11:30 93 19 99/72 98 12/20/18 10:30 76 19 106/85 95 12/20/18 09:30 104 21 98/76 96 General appearance: lethargic Eyes: nonicteric ENT: other (BiPAP in place) Neck: supple, no lymphadenopathy Effort: other (Labored breathing) Auscultation: bilateral: diminished breath sounds, wheezes Cardiovascular: regular rate and rhythm Gastrointestinal: normoactive bowel sounds, soft, non-distended Integumentary: other (diffuse bruising of the upper extremities ) Extremities: no edema, no clubbing Musculoskeletal: no deformities unable to assess due to mental status Results - Laboratory Findings CBC and BMP: 12/20/18 03:26 12/20/18 11:22 ABG ABG pH 7.22 pH Units (7.32-7.45) L 12/20/18 12:46 ABG pCO2 77 mmHg (35-45) H* 12/20/18 12:46 ABG pO2 135 mmHg (85-104) H 12/20/18 12:46 ABG O2 Saturation 98 % (95-98) 12/20/18 12:46 PT/INR, D-dimer PT 14.2 Seconds (9.4-12.1) H D 12/20/18 03:26 D-Dimer 739 ng/mLFEU (0-500) H 12/18/18 16:26 Abnormal lab findings: Abnormal lab results WBC 1.8 K/mcL (4.3-11.1) L 12/20/18 03:26 Hgb 16.9 g/dL (11.5-15.4) H 12/18/18 12:21 Hct 46.9 % (35.3-44.9) H 12/18/18 12:21 MCH 34.5 pg (28.0-33.3) H 12/20/18 03:26 MCHC 36.0 g/dL (31.6-35.5) H 12/20/18 03:26 Plt Count 97 K/mcL (140-400) L 12/20/18 03:26 Immature Gran % 8.4 % (0-4) H 12/19/18 16:28 Myelocytes % 6.0 % (0) H 12/20/18 03:26 Neutrophils # 1.1 K/mcL (1.6-8.9) L 12/20/18 03:26 Lymphocytes # 0.3 K/mcL (0.6-4.6) L 12/20/18 03:26 Reactive Lymphocytes Present (Not Present) A 12/20/18 03:26 Platelet Estimate Decreased (Normal) L 12/20/18 03:26 PT 14.2 Seconds (9.4-12.1) H D 12/20/18 03:26 APTT 60.7 Seconds (26.0-36.0) H 12/20/18 03:26 D-Dimer 739 ng/mLFEU (0-500) H 12/18/18 16:26 Heparin Anti-Xa, Unfract > 2.00 IU/mL (0.30-0.70) H* 12/19/18 16:28 ABG pH 7.22 pH Units (7.32-7.45) L 12/20/18 12:46 ABG pCO2 77 mmHg (35-45) H* 12/20/18 12:46 ABG pO2 135 mmHg (85-104) H 12/20/18 12:46 ABG HCO3 31 mEq/L (21-27) H 12/20/18 12:46 ABG Total CO2 34 mEq/L (20-26) H 12/20/18 12:46 ABG Base Excess -4 mEq/L (-2 to 3) L 12/19/18 05:11 VBG pH 7.27 pH Units (7.32-7.42) L 12/18/18 14:58 VBG pCO2 54 mmHg (41-51) H 12/18/18 14:58 VBG pO2 80 mmHg (25-50) H 12/18/18 14:58 Sodium 129 mEq/L (136-145) L 12/20/18 11:22 Potassium 5.2 mEq/L (3.5-5.1) H 12/18/18 12:21 Chloride 91 mEq/L (98-107) L 12/20/18 11:22 Carbon Dioxide 20 mEq/L (23-29) L 12/19/18 09:58 BUN 44 mg/dL (8-23) H 12/20/18 11:22 Creatinine 1.55 mg/dL (0.60-1.20) H 12/20/18 11:22 Est GFR ( Amer) 40 (> 60) L 12/20/18 11:22 Est GFR (Non-Af Amer) 33 (> 60) L 12/20/18 11:22 BUN/Creatinine Ratio 28 (6-26) H 12/20/18 11:22 Glucose 126 mg/dL (70-105) H 12/20/18 03:26 POC Glucose 110 mg/dL (70-99) H 12/19/18 19:57 Serum Osmolality 276 mOsm/kg (280-300) L 12/19/18 16:28 Calculated Osmolality 279 (280-300) L 12/20/18 11:22 Calcium 6.7 mg/dL (8.6-10.3) L 12/20/18 11:22 Venous Ioniz Calcium 0.84 mmol/L (1.15-1.35) L 12/20/18 11:59 Total Bilirubin 1.9 mg/dL (0.3-1.0) H 12/20/18 03:26 Direct Bilirubin 1.2 mg/dL (0.0-0.2) H 12/20/18 03:26 AST 248 Units/L (13-39) H 12/20/18 03:26 ALT 88 Units/L (7-52) H 12/20/18 03:26 B-Natriuretic Peptide 377 pg/mL (Less than 100) H 12/18/18 16:26 Serum Total Protein 4.9 g/dL (6.4-8.9) L 12/20/18 03:26 Albumin 2.8 g/dL (3.5-5.7) L 12/20/18 03:26 Globulin 2.1 g/dL (2.4-3.5) L 12/20/18 03:26 Urine Clarity Cloudy (Clear) A 12/18/18 15:06 Urine Blood Trace (Negative) H 12/18/18 15:06 Urine Bilirubin Moderate (Negative) H 12/18/18 15:06 Urine Microscopic RBC 5-15 per hpf (0-3) H 12/18/18 15:06 Ur Squamous Epith Cells Many per lpf (None-Few) H 12/18/18 15:06 Urine Osmolality 285 mOsm/kg (300-1090) L 12/18/18 15:06 Stl C. diff Tox B Gene Positive (Negative) A 12/19/18 10:43 - Microbiology Findings Microbiology Findings: Microbiology, Last 48 Hours 12/19/18 10:43 Clostridium difficile Toxin A & B - Final Stool 12/19/18 09:00 Legionella Antigen - Final Urine,Clean Catch 12/18/18 16:26 Blood Culture - Preliminary Peripheral Venipuncture Culture is incubating and being continuously monitored for growth. Final report to follow. 12/18/18 16:26 Blood Culture - Preliminary Peripheral Venipuncture Culture is incubating and being continuously monitored for growth. Final report to follow. - Clinical Findings Intake & Output: Intake & Output 12/19/18 12/20/18 12/20/18 23:59 07:59 15:59 Intake Total 331.7 / 2651.7 139.3 / 239.3 100 / 239.3 Output Total 300 / 900 400 / 725 325 / 725 Balance 31.7 / 1751.7 -260.7 / -485.7 -225 / -485.7 Weight 64 kg Consult Discharge Plan - Plan Referrals: Aryan Rese MD [Primary Care Provider] - <Tripp Sigalaal Cosme - Last Filed: 12/20/18 15:57> Date of Encounter: 12/20/18 All Systems: The remainder of the systems were reviewed and are negative Physical Examination Vital Signs: Vital Signs, Last 4 Hours Temp Pulse Resp BP Pulse Ox 12/20/18 12:55 16 91/69 99 12/20/18 12:31 96.0 F L 12/20/18 12:30 83 19 88/63 96 Results - Laboratory Findings CBC and BMP: 12/20/18 03:26 12/20/18 11:22 ABG ABG pH 7.22 pH Units (7.32-7.45) L 12/20/18 12:46 ABG pCO2 77 mmHg (35-45) H* 12/20/18 12:46 ABG pO2 135 mmHg (85-104) H 12/20/18 12:46 ABG O2 Saturation 98 % (95-98) 12/20/18 12:46 PT/INR, D-dimer PT 14.2 Seconds (9.4-12.1) H D 12/20/18 03:26 D-Dimer 739 ng/mLFEU (0-500) H 12/18/18 16:26 Abnormal lab findings: Abnormal lab results WBC 1.8 K/mcL (4.3-11.1) L 12/20/18 03:26 Hgb 16.9 g/dL (11.5-15.4) H 12/18/18 12:21 Hct 46.9 % (35.3-44.9) H 12/18/18 12:21 MCH 34.5 pg (28.0-33.3) H 12/20/18 03:26 MCHC 36.0 g/dL (31.6-35.5) H 12/20/18 03:26 Plt Count 97 K/mcL (140-400) L 12/20/18 03:26 Immature Gran % 8.4 % (0-4) H 12/19/18 16:28 Myelocytes % 6.0 % (0) H 12/20/18 03:26 Neutrophils # 1.1 K/mcL (1.6-8.9) L 12/20/18 03:26 Lymphocytes # 0.3 K/mcL (0.6-4.6) L 12/20/18 03:26 Reactive Lymphocytes Present (Not Present) A 12/20/18 03:26 Platelet Estimate Decreased (Normal) L 12/20/18 03:26 PT 14.2 Seconds (9.4-12.1) H D 12/20/18 03:26 APTT 60.7 Seconds (26.0-36.0) H 12/20/18 03:26 D-Dimer 739 ng/mLFEU (0-500) H 12/18/18 16:26 Heparin Anti-Xa, Unfract > 2.00 IU/mL (0.30-0.70) H* 12/19/18 16:28 ABG pH 7.22 pH Units (7.32-7.45) L 12/20/18 12:46 ABG pCO2 77 mmHg (35-45) H* 12/20/18 12:46 ABG pO2 135 mmHg (85-104) H 12/20/18 12:46 ABG HCO3 31 mEq/L (21-27) H 12/20/18 12:46 ABG Total CO2 34 mEq/L (20-26) H 12/20/18 12:46 ABG Base Excess -4 mEq/L (-2 to 3) L 12/19/18 05:11 VBG pH 7.27 pH Units (7.32-7.42) L 12/18/18 14:58 VBG pCO2 54 mmHg (41-51) H 12/18/18 14:58 VBG pO2 80 mmHg (25-50) H 12/18/18 14:58 Sodium 129 mEq/L (136-145) L 12/20/18 11:22 Potassium 5.2 mEq/L (3.5-5.1) H 12/18/18 12:21 Chloride 91 mEq/L (98-107) L 12/20/18 11:22 Carbon Dioxide 20 mEq/L (23-29) L 12/19/18 09:58 BUN 44 mg/dL (8-23) H 12/20/18 11:22 Creatinine 1.55 mg/dL (0.60-1.20) H 12/20/18 11:22 Est GFR ( Amer) 40 (> 60) L 12/20/18 11:22 Est GFR (Non-Af Amer) 33 (> 60) L 12/20/18 11:22 BUN/Creatinine Ratio 28 (6-26) H 12/20/18 11:22 Glucose 126 mg/dL (70-105) H 12/20/18 03:26 POC Glucose 110 mg/dL (70-99) H 12/19/18 19:57 Serum Osmolality 276 mOsm/kg (280-300) L 12/19/18 16:28 Calculated Osmolality 279 (280-300) L 12/20/18 11:22 Calcium 6.7 mg/dL (8.6-10.3) L 12/20/18 11:22 Venous Ioniz Calcium 0.84 mmol/L (1.15-1.35) L 12/20/18 11:59 Total Bilirubin 1.9 mg/dL (0.3-1.0) H 12/20/18 03:26 Direct Bilirubin 1.2 mg/dL (0.0-0.2) H 12/20/18 03:26 AST 248 Units/L (13-39) H 12/20/18 03:26 ALT 88 Units/L (7-52) H 12/20/18 03:26 B-Natriuretic Peptide 377 pg/mL (Less than 100) H 12/18/18 16:26 Serum Total Protein 4.9 g/dL (6.4-8.9) L 12/20/18 03:26 Albumin 2.8 g/dL (3.5-5.7) L 12/20/18 03:26 Globulin 2.1 g/dL (2.4-3.5) L 12/20/18 03:26 Urine Clarity Cloudy (Clear) A 12/18/18 15:06 Urine Blood Trace (Negative) H 12/18/18 15:06 Urine Bilirubin Moderate (Negative) H 12/18/18 15:06 Urine Microscopic RBC 5-15 per hpf (0-3) H 12/18/18 15:06 Ur Squamous Epith Cells Many per lpf (None-Few) H 12/18/18 15:06 Urine Osmolality 285 mOsm/kg (300-1090) L 12/18/18 15:06 Stl C. diff Tox B Gene Positive (Negative) A 12/19/18 10:43 - Microbiology Findings Microbiology Findings: Microbiology, Last 48 Hours 12/19/18 10:43 Clostridium difficile Toxin A & B - Final Stool 12/19/18 09:00 Legionella Antigen - Final Urine,Clean Catch 12/18/18 16:26 Blood Culture - Preliminary Peripheral Venipuncture Culture is incubating and being continuously monitored for growth. Final report to follow. 12/18/18 16:26 Blood Culture - Preliminary Peripheral Venipuncture Culture is incubating and being continuously monitored for growth. Final report to follow. - Clinical Findings Intake & Output: Intake & Output 12/19/18 12/20/18 12/20/18 23:59 07:59 15:59 Intake Total 331.7 / 2651.7 139.3 / 239.3 100 / 239.3 Output Total 300 / 900 400 / 725 325 / 725 Balance 31.7 / 1751.7 -260.7 / -485.7 -225 / -485.7 Weight 64 kg - Attending Attestation I examined this patient and my medical decision-making was reviewed with the Resident Physician. I agree with the documented findings, disposition and treatment plan as described except to the extent set forth below. Patient seen and examined. Labs, radiology, chart personally reviewed. Agree with resident's history and physical, assessment, plan with following co mments: [employer]: Patient follows commands, however she is lethargic and it might be from sedative for that reason we will stop Librium and have her on CIWA protocol only. Patient has strong history of alcohol abuse and will have her on multivitamins. Pulmonary: Acceptable oxygenation, however patient has hypercapnia which is most likely from her underlying COPD and patient has noninvasive ventilation which she will keep it to help her hypercapnic respiratory failure and patient seems to be tolerating Well. I wrote be any deterioration will consider Precedex. We will have her follow-up ABG. Continue bronchodilators and Reviewed her CT chest which is mostly atelectasis with mucous plugs and deep no improvement will consider bronchoscopy but for now airway clearance. Cardiovascular: stable GI: Nutrition per dietary and GI prophylaxis per routine Heme: DVT prophylaxis per routine ID: Continue antibiotics and plan to de-escalation. We will treat C. difficile and stop her other antibiotics because of the risk of worsening her C. difficile and do not feel strongly she has pneumonia. Renal; urine out put and renal function reviewed Endorcine: blood glucose is monitored Lines: all lines checked and no evidence of infections Skin: skin care to prevent pressure ulcers per nursing routine care Dispo: Keep patient in ICU for now. Code: Full. Prognosis. Guarded. However it is poor if she continued that lifestyle. Discussed this with the family at the bedside.
[2018-12-20] MEDS ORDERED: *HR* Dextrose 50 % in Water (Syg) 50 ML SYRINGE IVP PRN (16:24)
[2018-12-20] MEDS ORDERED: Dextrose Gel 15 GM/37.5 ML TUBE PO PRN ×2 (16:24)
[2018-12-20] MEDS ORDERED: D5% in Water 1,000 ML IVC PRN (16:24)
[2018-12-20] MEDS ORDERED: Calcium Gluconate 2,000 MG in 0.9 % Sodium Chloride 100 ML IVPB ONE (16:40)
--- NOTE | 2018-12-20 16:41 | Internal Med Progress Note ---
Hospitalist Progress Note - Encounter Date of Encounter: 12/20/18 Time of Encounter: 08:45 - Subjective Interval History: Patient was resting in bed this morning, somnolent, but arousable. She did receive a dose of Ativan shortly before I assessed her. She remained somnolent later in the morning on MDR rounds, so I ordered and ABG. She was then placed on BiPap due to respiratory acidosis. While on BiPap, she was agitated, pulling at lines, tubes, and catheters. I am concerned she is starting to exhibit more ETOH withdrawal symptoms and that she has failed staying off BiPap twice now. Therefore, I am consulting Pulmonary for assistance and will keep her in ICU. She also developed leukopenia and thrombocytopenia. We are consulting HEM/ONC, stopping heparin gtt, ordering HIT panel, and resuming Xarelto (renal dosing). - Exam Vitals: Temp Pulse Resp BP Pulse Ox 96.2 F L 78 19 98/66 96 12/20/18 16:00 12/20/18 16:00 12/20/18 16:00 12/20/18 16:00 12/20/18 16:00 Exam: General: somnolent but arousable; agitated while on BiPap HEENT: neck supple, dry mucosa Chest: distant breath sounds, prolonged exp phase, few, scattered wheezes, right basilar crackles; RRR, distant heart sounds Abdomen: soft, NT, ND, NO HSMG Ext; no calf pain, full ROM, cap refill ~ 2 seconds Skin: warm and dry, mild tenting Neuro: somnolent, arousable, responds appropriately - Assessment and Plan (1) Respiratory failure with hypoxia and hypercapnia Current Visit: Yes Status: Acute Assessment and Plan: 1. Resume BiPap. 2. Consult Pulmonary -- discussed with Dr. Sigala. 3. Wean steroids, oxygen as able, continue nebs PRN. 4. Stop Vancomycin and continue Zosyn. Follow cultures. (2) SALINAS (acute kidney injury) Current Visit: Yes Status: Acute Assessment and Plan: 1 Continue IVF and monitor electrolytes. 2. Nephrology following. (3) Alcoholism Current Visit: Yes Status: Acute Assessment and Plan: 1. Following CIWA protocol. I am conerned she is withdrawing more. Discussed with Dr. Sigala, he agrees. He started Precedex drip and cancelled Librium. 2. Monitor via CIWA protocol. (4) C. difficile colitis Current Visit: Yes Status: Acute Assessment and Plan: 1. Continue oral vancomycin. 2. Abdominal exam is benign. 3. Contact isolation. (5) Hyponatremia Current Visit: Yes Status: Acute Assessment and Plan: 1. Slowly resolving. 2. Nephrology following. 3. Monitor electrolytes. (6) Thrombocytopenia Current Visit: Yes Status: Acute Assessment and Plan: 1. Heparin drip stopped, HIT panel ordered, HEM/ONC consulted. 2. Xarelto resumed. 3. Possibly medication related (? Vancomycin IV -- discussed with pharmacy). DVT Prophylaxis: Xarelto; heparin drip stopped. - Time Spent with Patient Total time spent is greater than 50% in coordination of care (as documented) at patient's floor/unit and/or counseling patient: 25 - 35 minutes Plan of Care Discussed with: other (patient, Dr. Sigala, MDR team) Internal Medicine: Result - Labs CBC & Chem 7: 12/20/18 03:26 12/20/18 11:22 Labs: Short CBC 12/19/18 12/20/18 Range/Units 16:28 03:26 WBC 2.1 L 1.8 L (4.3-11.1) K/mcL Hgb 14.6 13.3 (11.5-15.4) g/dL Hct 40.8 36.9 (35.3-44.9) % Plt Count 102 L 97 L (140-400) K/mcL Neutrophils # 1.6 1.1 L (1.6-8.9) K/mcL BMP 12/19/18 12/20/18 12/20/18 16:28 03:26 11:22 Sodium 126 L 126 L 129 L Potassium 4.5 3.8 4.1 Chloride 89 L 90 L 91 L Carbon Dioxide 24 23 28 BUN 46 H 47 H 44 H Creatinine 2.03 H 1.72 H 1.55 H Glucose 96 126 H 99 Calcium 6.9 L 7.1 L 6.7 L Liver Function 12/20/18 Range/Units 03:26 Total Bilirubin 1.9 H (0.3-1.0) mg/dL Direct Bilirubin 1.2 H (0.0-0.2) mg/dL AST 248 H (13-39) Units/L ALT 88 H (7-52) Units/L Alkaline Phosphatase 81 (34-104) Units/L Albumin 2.8 L (3.5-5.7) g/dL - ABG Interpretation ABG results: ABG ABG pH 7.22 pH Units (7.32-7.45) L 12/20/18 12:46 ABG pCO2 77 mmHg (35-45) H* 12/20/18 12:46 ABG pO2 135 mmHg (85-104) H 12/20/18 12:46 ABG O2 Saturation 98 % (95-98) 12/20/18 12:46 PT/INR, D-dimer PT 14.2 Seconds (9.4-12.1) H D 12/20/18 03:26 D-Dimer 739 ng/mLFEU (0-500) H 12/18/18 16:26 - Impressions Impressions Retroperitoneum Ultrasound 12/19/18 10:36 IMPRESSION: Unremarkable ultrasound of the kidneys. D/ / Kenton Powers MD / Kenton Powers MD Interpreting Provider: Kenton Powers MD Liver Ultrasound 12/19/18 12:51 IMPRESSION: Unremarkable right upper quadrant ultrasound. D/ / Kenton Powers MD / Kenton Powers MD Interpreting Provider: Kenton Powers MD Consult Discharge Plan - Plan Referrals: Aryan Rees MD [Primary Care Provider] - (1) Respiratory failure with hypoxia and hypercapnia Qualifiers: Chronicity: acute on chronic Qualified Code(s): J96.21 - Acute and chronic respiratory failure with hypoxia; J96.22 - Acute and chronic respiratory failure with hypercapnia
[2018-12-20] MEDS: Dexmedetomidine HCl 400 MCG/100 ML MLS IVC SCH (17:20)
[2018-12-20] MEDS: Insulin LISPRO 300 UNITS/3 ML VIAL SQ SCH (17:20)
[2018-12-20] MEDS: Thiamine (B-1) 100 MG, Folic Acid 1 MG, MVI, adult with vitamin K 10 ML in 0.9 % Sodi... IVPB SCH (18:17)
[2018-12-20 21:04] LABS: Hepatitis B Surface Antibody < 3.10 mIU/mL
[2018-12-20 21:15] LABS: Hepatitis B Surface Antigen Nonreactive (Nonreactive)
[2018-12-20 21:45] LABS: Hepatitis A Antibody IgM Nonreactive (Nonreactive); Hepatitis C Virus Antibody Nonreactive (Nonreactive)
[2018-12-21] MEDS: Ipratropium/Albuterol Neb 3 ML IH SCH ×6 (03:57→23:58)
[2018-12-21 04:20] LABS: VBG Ionized Calcium 0.99 mmol/L (1.15-1.35)
[2018-12-21 04:24] LABS: Red Blood Count 3.79 M/mcL (3.82-4.97)
[2018-12-21 04:25] LABS: Hematocrit 36.5 % (35.3-44.9); Hemoglobin 12.9 g/dL (11.5-15.4); Immature Granulocytes % 7.4 % (0-4); Lymphocytes # 0.1 K/mcL (0.6-4.6); Lymphocytes % 5.9 %; Mean Corpuscular HGB Conc 35.3 g/dL (31.6-35.5); Mean Corpuscular Volume 96.3 fL (83.0-100.0); Mean Platelet Volume 11.7 fL (9.4-12.4); Monocytes # 0.3 K/mcL (0.0-1.3); Monocytes % 22.2 %; Red Cell Distribution Width 12.5 % (11.5-14.5); Segmented Neutrophils % 61.5 %; White Blood Count 1.4 K/mcL (4.3-11.1)
[2018-12-21 04:26] LABS: Neutrophils # 0.9 K/mcL (1.6-8.9); Platelet Count 87 K/mcL (140-400)
[2018-12-21 04:37] LABS: Albumin 2.5 g/dL (3.5-5.7); Albumin/Globulin Ratio 1.2 (1.1-2.2); Bilirubin,Total 1.7 mg/dL (0.3-1.0); Calcium 7.3 mg/dL (8.6-10.3); Globulin 2.1 g/dL (2.4-3.5); Magnesium 1.1 mg/dL (1.6-2.6); Phosphorous 3.4 mg/dL (2.7-4.5); Potassium 3.9 mEq/L (3.5-5.1); Total Protein 4.6 g/dL (6.4-8.9)
[2018-12-21 04:45] LABS: ABG Base Excess 1 mEq/L (-2 to 3); ABG HCO3 28 mEq/L (21-27); ABG Oxygen Saturation 90 % (95-98); ABG PCO2 52 mmHg (35-45); ABG PH 7.34 pH Units (7.32-7.45); ABG PO2 63 mmHg (85-104); ABG TCO2 29 mEq/L (20-26); Blood Gas Modality ST; Blood Gas PEEP 14 cm H2O; Blood Gas Pressure Support 6 cm H2O
[2018-12-21 05:23] LABS: Hypochromasia Present (Not Present); Platelet Estimate Decreased (Normal); Poikilocytosis 1+ (Not Present)
[2018-12-21] MEDS: MethylPREDNISolone 40 MG/ML VIAL IVP SCH (05:39)
[2018-12-21] MEDS: Budesonide/Formoterol 160/4.5 1 PUFF INH IH SCH ×2 (07:37→19:51)
--- NOTE | 2018-12-21 08:24 | Nephrology Progress Note ---
Date of Encounter: 12/21/18 Time of Encounter: 08:22 - Assessment and Plan (1) SALINAS (acute kidney injury) Current Visit: Yes Status: Acute Patient with multifactorial acute kidney injury that seems to be prerenal. She came in with a clinical picture this suggests volume depletion that includes decreased oral intake, diarrhea, and ongoing diuretic use. Scr 1.38, GFR 38-renal function improving nicely UOP 925-better Avoid any unnecessary nephrotoxic agents. (2) Hyponatremia Current Visit: Yes Status: Acute Na+ improving at 132 (3) COPD exacerbation Current Visit: Yes Status: Acute per primary team (4) Alcoholism Current Visit: Yes Status: Acute per primary team Subjective Principal diagnosis: SALINAS Interval history: Patient seen and examined in ICU, sitting up in bed being fed breakfast. Objective - Vital Signs Vital signs: Vital Signs Temp Pulse Resp BP Pulse Ox 12/21/18 07:50 96.6 F L 12/21/18 07:43 18 99 12/21/18 07:00 88 16 97/74 92 12/21/18 06:00 70 16 100/76 95 12/21/18 05:00 70 16 103/70 90 12/21/18 04:00 97.5 F L 82 18 93/73 95 12/21/18 03:58 15 94 12/21/18 03:00 70 16 97/82 95 12/21/18 02:00 70 16 98/68 92 12/21/18 01:00 70 14 93/75 92 12/21/18 00:00 97.3 F L 70 14 90/61 92 12/20/18 23:49 13 100 12/20/18 23:00 70 10 93/65 97 12/20/18 22:00 70 10 94/67 97 12/20/18 21:00 70 10 98/77 97 12/20/18 20:00 96.1 F L 70 12 105/74 100 12/20/18 19:48 10 100 12/20/18 19:00 70 10 92/66 100 12/20/18 18:29 71 16 99/71 12/20/18 17:30 81 16 109/76 100 12/20/18 16:30 78 16 87/62 99 12/20/18 16:00 96.2 F L 78 19 98/66 96 12/20/18 15:55 18 85/64 100 12/20/18 15:35 72 18 85/64 99 12/20/18 14:30 80 19 96/78 97 12/20/18 13:30 79 19 78/56 96 12/20/18 12:55 16 91/69 99 12/20/18 12:31 96.0 F L 12/20/18 12:30 83 19 88/63 96 12/20/18 11:30 93 19 99/72 98 12/20/18 11:00 14 95 12/20/18 10:30 76 19 106/85 95 12/20/18 09:30 104 21 98/76 96 12/20/18 09:05 95.9 F L 12/20/18 08:30 79 20 102/81 95 Intake and Output 12/20/18 12/21/18 12/21/18 23:59 07:59 15:59 Intake Total 1120 / 1414.3 511.2 / 511.2 Output Total 200 / 1025 275 / 275 Balance 920 / 389.3 236.2 / 236.2 Intake: IV Fluids 1120 / 1414.3 511.2 / 511.2 0.9 % Sodium Chloride 1,000 ML 1000 / 1000 @ 100 mls/hr IVC .Q10H [facility] Rx#: [id number] Precedex Premix 400 mcg In 100 0 / 0 ml @ 0.2 MCG/KG/HR 3.2 mls/hr IVC .Q24H [facility] Rx#:[id number] Calcium Gluconate 2,000 MG In 0 120 / 120 .9 % Sodium Chloride 100 ML @ 220 mls/hr IVPB ONCE ONE Rx#: [id number] Vitamin B-1 100 MG Folvite 1 MG 511.2 / 511.2 M.v.i. Adult 10 ml In 0.9 % Sodium Chloride 500 ML @ 85.2 mls/hr IVPB DAILY@1800 [facility] Rx#: [id number] Output: Catheter 200 / 1025 275 / 275 Other: Weight 62.1 kg Blood Glucose* 110 81 Patient Weight 12/21/18 23:59 Weight 62.1 kg - General Appearance General appearance: Present: chronically ill, frail EENT: Present: ATNC, mucous membranes dry (patient asking for water), hearing intact, vision intact Neck: Present: supple Respiratory: Present: clear (decreased) Cardiology: Present: edema, normal S1, normal S2 Gastrointestinal: Present: no tenderness, no guarding Integumentary: Present: warm and dry Neurologic: Present: alert and oriented x3 Psychiatric: Present: mood/affect appropriate, cooperative - Lab 12/21/18 03:50 12/21/18 03:50 Most recent lab results 12/21/18 12/21/18 03:50 04:41 ABG pH 7.34 ABG pCO2 52 H ABG pO2 63 L ABG HCO3 28 H ABG O2 Saturation 90 L Calcium 7.3 L Phosphorus 3.4 Magnesium 1.1 L Consult Discharge Plan - Plan Referrals: Aryan Rees MD [Primary Care Provider] -
[2018-12-21] MEDS: Insulin LISPRO 300 UNITS/3 ML VIAL SQ SCH ×3 (09:39→17:49)
[2018-12-21] MEDS: Vancomycin Oral Soln 125 MG/2.5 ML UDC PO SCH ×4 (09:44→20:57)
[2018-12-21] MEDS: Nystatin SUSP 5 ML UD.LIQ PO SCH ×4 (09:44→20:57)
--- NOTE | 2018-12-21 12:06 | Oncology Inp Consult Note ---
Date of Encounter: 12/21/18 Time of Encounter: 11:54 Assessment and Plan (1) Leukopenia Status: Acute Assessment and plan: Leukopenia-this patient was admitted with normal WBC count and differential. Her WBC count has declined during this hospital stay and this is probably multifactorial - secondary to drug-induced myelosuppression ( suspect Zosyn),toxic myelosuppresion from excessive alcohol intake and probably sepsis related myelosuppression. Plan: CBC with differential everyday Hold off on any antibiotics such as Zosyn and Bactrim etc. that could suppress her blood counts. we will check vitamin B-12 and folate given chronic alcohol abuse and liver disease. Other workup includes chronic hepatitis panel which was normal and HIV workup pending. Given her moderate neutropenia with ANC of 900 today, recommend high clinical vigilance and low threshold to workup for any infection. We will hold off on G-CSF support for now and will consider if her ANC drops below 500. We will continue to follow her counts everyday. Qualifiers: Leukopenia type: unspecified Qualified Code(s): D72.819 - Decreased white blood cell count, unspecified (2) Thrombocytopenia Status: Acute Assessment and plan: Thrombocytopenia- new onset thrombocytopenia. CBC from September 2018 shows a normal platelet count of 270. Her platelet count on admission on 12/18/2018 was 129. Suspect this is infection related, from liver disease related to alcohol use and drug-induced thrombocytopenia, most likely Zosyn. The likelihood of having HIT is low based on her for 4T score being 2- (thrombocytopenia platelet counts fall less than 30%, platelet anupama more than 20,000, timing of platelet count fall, days 2-4, no recent prior heparin exposure prior to hospitilization, no new thrombosis, no new skin necrosis and possible other causes of thrombocytopenia. Plan: Recommend CBC every day for monitoring platelet count. Hold off on prophylactic platelet transfusion unless platelet count less than 20,000 or clinically significant bleeding or for procedures. We will check fibrinogen to rule out DIC related thrombocytopenia. We will follow-up with a HIT panel that has already been sent. (3) Recurrent deep vein thrombosis (DVT) Status: Acute Assessment and plan: History of recurrent DVT-she has a history of recurrent DVT most recently diagnosed in September 2017 and has been on xarelto for anticoagulation 20 mg daily since then. Lower extremity ultrasound on this admission does not reveal any acute DVT, it did show chronic superficial vein thrombus in the great saphenous vein on the right side. Plan: Continue xarelto for anticoagulation for now. Recommend holding xarelto if platelet count less than 50,000 or if any clinically significant bleeding or for procedures. - Data of Consult Requesting Physician: Addison Eduardo MD Primary Care Provider: Aryan Rees MD - Consult Narrative Reason for consult: Leukopenia and thrombocytopenia History of present illness: Mrs. Huang is a 73-year-old female we are seeing in consultation today for leukopenia and thrombocytopenia and a consult was requested by the ICU team. She was admitted on 12/18/2018 for acute hypoxic respiratory failure and C. difficile colitis. She has a past medical history of recurrent C. difficile infection, recurrent DVT on xarelto, liver disease with chronic alcohol abuse, history of secondary polycythemia, osteoporosis, hypertension and diabetes. On admission her WBC count was 6 with a platelet count of 129. It has steadily declined over the course of this hospital stay with WBC count at 1.4 and platelet count 87 today. She takes xarelto 20 mg daily for recurrent DVT. On admission Xarelto was held and heparin GTT was started. Due to concerns of HIT heparin GTT was held on for December 20 2018, HIT panel sent and xarelto resumed. She was also on IV Zosyn for broad-spectrum antibiotic coverage from 12/18/2018 to 12/20/2018 which has been transitioned to azithromycin and oral vancomycin for C. difficile colitis. She denies any fevers, no bleeding although extensive bruising noted in both forearms. No hemoptysis, no hematemesis or hematochezia. Her diarrhea has improved. Her mentation is slow but she is able to answer questions appropriately. Note she does have a significant history of alcohol use- 1/4 Gallon of whiskey every day per son. She is also chronic smoker. Past Med Surg Social Fam HX - Past Medical History Medical history: CHF, COPD, DVT, hypertension, osteoporosis Additional medical history: gout, ETOH Psychiatric history: no psych history - Past Surgical History Surgical History: AICD Additional surgical history: back surgery, tubal ligation, PPM - Social History Smoking Status: Former smoker Smokeless Tobacco Status: No Alcohol use: occasionally, heavy Drug use: none Medications and Allergies Albuterol Sulfate [Proair Respiclick] 1 - 2 puff IH Q6H PRN 03/31/15 [History] Allopurinol [Zyloprim] 100 mg PO DAILY 03/31/15 [History] Denosumab [Prolia (For Outpatient Infusion)] 60 mg IV [id number] 03/31/15 [History] Furosemide [Lasix] 40 mg PO DAILY 03/31/15 [History] Lisinopril [Zestril] 2.5 mg PO DAILY 03/31/15 [History] Spironolactone [Aldactone] 12.5 mg PO DAILY 03/31/15 [History] Rivaroxaban [Xarelto] 20 mg PO DAILY #30 tablet 09/26/17 [Rx] Budesonide/Formoterol 160/4.5 [Symbicort 160/4.5] 2 puff IH BIDR 10/17/18 [History] Carvedilol [Coreg] 25 mg PO BID 10/17/18 [History] Cholecalciferol (Vitamin D3) [Vitamin D3] 5,000 unit PO DAILY 12/18/18 [History] Colchicine [Colcrys] 0.6 mg PO DAILY 12/18/18 [History] Ipratropium/Albuterol Sulfate [Combivent Respimat Inhal [place]] 2 inh IH Q6HR PRN 12/18/18 [History] Tiotropium [place] [Spiriva Respimat] 2 inh IH DAILY 12/18/18 [History] Allergy/AdvReac Type Severity Reaction Status Date / Time latex Allergy Unknown Rash Verified 09/26/17 08:03 aspirin AdvReac Unknown Stomach Verified 09/26/17 08:03 upset Review of systems: Constitutional: no fever, chills, nightsweats. no recent unintentional changes in weight HEENT: no sore throat. no vision disturbances. no hearing issues. no lumps or bumps in the neck. no symptoms of sinus congestion or epistaxis. CVS: no chest pain, SOB, palpitations, diziness. RS: no cough, SOB, wheezing, sputum production ABD: no nausea, vomiting, constipation, no blood in stool. has trouble swallo wing sme food consistencies [employer]PER[employer]: alert and oriented x2, no headache. no focal weakness or sensory disturbances. : no blood in urine, no dysuria or flank pain. SKIN- extensive bruising in both forearms musculoskeletal- back pain from laying in bed, no swelling in legs Oncology - Exam - Constitutional Exam: CONSTITUTIONAL: Alert,oriented x 2, appears sick, weak and malnourished HEENT Sclerae mild icterus, No mucositis or thrush, Pharynx normal. HEART: Regular rhythm and normal rate. No gallops, murmurs or rubs. LUNGS: Clear to auscultation bilaterally. ABDOMEN: Soft, nontender, nondistended, no organomegaly or masses palpable. Bowel sounds present. EXTREMITIES: No edema. No calf swelling or tenderness. No joint deformity. SKIN: extensive echymosis and bruising in forearm and IV sites NEUROLOGIC: Alert,oriented x 2,no focal weakness or sensory abnormalities. PSYCH: Affect appropriate for circumstances. LYMPH NODES: No cervical, supraclavicular adenopathy . Oncology Inpatient Results Labs: Short CBC 12/21/18 Range/Units 03:50 WBC 1.4 L (4.3-11.1) K/mcL Hgb 12.9 (11.5-15.4) g/dL Hct 36.5 (35.3-44.9) % Plt Count 87 L (140-400) K/mcL Neutrophils # 0.9 L (1.6-8.9) K/mcL BMP 12/21/18 Range/Units 03:50 Sodium 132 L (136-145) mEq/L Potassium 3.9 (3.5-5.1) mEq/L Chloride 95 L (98-107) mEq/L Carbon Dioxide 25 (23-29) mEq/L BUN 42 H (8-23) mg/dL Creatinine 1.38 H (0.60-1.20) mg/dL Glucose 81 (70-105) mg/dL Calcium 7.3 L (8.6-10.3) mg/dL Liver Function 12/21/18 Range/Units 03:50 Total Bilirubin 1.7 H (0.3-1.0) mg/dL AST 153 H (13-39) Units/L ALT 80 H (7-52) Units/L Alkaline Phosphatase 62 (34-104) Units/L Albumin 2.5 L (3.5-5.7) g/dL Chest CT 12/19/18 07:02 IMPRESSION: At least moderate emphysema. Diffuse bronchial wall thickening, greater on the right, a nonspecific finding which can be seen with infectious or inflammatory etiologies to include smoking. Right middle lobe and mostly dependent bilateral lower lobe airspace disease, atelectasis and/or pneumonia. Airspace disease within the right lower lobe is obscured by motion artifact. Liver Ultrasound 12/19/18 12:51 IMPRESSION: Unremarkable right upper quadrant ultrasound. D/ / Kenton Powers MD / Kenton Powers MD Interpreting Provider: Kenton Powers MD Consult Discharge Plan - Plan Referrals: Aryan Rees MD [Primary Care Provider] - Inpatient Charges Provider: Dr. Brigido Woodruff Consult - Inpatient: [id number]
[2018-12-21] MEDS: 0.9 % Sodium Chloride 1,000 ML IVC SCH ×3 (12:15→23:05)
[2018-12-21] MEDS: Calcium Gluconate 1gm/50mL 1 GM/50 ML BAG IVPB SCH ×3 (12:16→15:22)
--- NOTE | 2018-12-21 13:14 | Pulmonology Progress Note ---
<Archie Schroeder - Last Filed: 12/21/18 13:25> Date of Encounter: 12/21/18 Time of Encounter: 13:07 Subjective Principal diagnosis: SALINAS Interval history: Patient is a 73-year-old female past medical history of CHF, COPD, prior DVT, hypertension, osteoporosis, gout currently on colchicine, carvedilol, allopurinol, lisinopril, Lasix, spironolactone and Xarelto. Presented to the ER on for gradually progressive and worsening shortness of breath over the past 2-3 days, the patient tolerated BiPAP well however there was concern about a right lower lobe pneumonia or possible mass. Patient was noted to have elevated d-dimer however with acute kidney injury we did not perform CTA and heparinization was started. Patient was started on vancomycin and Zosyn plus azithromycin initially with de-escalation to Zosyn which continued for 3 days before being stopped. Concern for Clostridium difficile the patient was started on oral vancomycin. C. difficile testing was inconclusive however we continue to treat clinically. Patient was noted to have a pancytopenia which raised concern for pharmacological etiology versus immune deficiency, or dilutional. We have stopped vancomycin and Zosyn, electrolytes have been replenished, hepatitis panel was negative we have sent off for HIV testing hematology/oncology was consulted and is following. Patient also significant past medical history of alcohol abuse, she is currently on CIWA protocol with Ativan when necessary, we stopped Librium due to the patient having altered mental status, however this time she is having intermittent visual hallucinations and continues to call out for her who is not currently present when agitated. We started Precedex drip for the management of patient agitation and will continue to monitor closely for delirium tremens. Upon my initial evaluation this morning patient awake, alert, engaged conversation answering questions appropriately, she appears uncomfortable due to the BiPAP but is otherwise tolerating well. Her vitals are within normal limits, her skin is pink warm and dry, cardio pulmonary auscultation reveals bilateral wheezes consistent with her prior examinations, abdomen is soft, nontender nondistended, good peripheral pulses without evidence of peripheral edema. Assessment and plan: 1. Pancytopenia: -Hematology/oncology consulted and is following. -Hepatitis panel is negative, vancomycin/Zosyn has been stopped, electrolytes have been replaced, HIV testing pending. -Cautious IV fluid administration. 2. Acute kidney injury: -Nephrology consulted and is following. -Creatinine trending downward. -Continue to monitor closely. 3. Hypocalcemia: -Several units of calcium gluconate have been given, ionized calcium level is rising. -Continue to monitor closely. 4. Hypomagnesemia: -Magnesium replaced. -Continue to monitor closely. 5. Alcoholic hepatitis: -AST/ALT levels are elevated with AST greater than 2 times ALT level. -Continue to monitor closely. 6. Clostridium difficile: -Continue contact precautions. -Continue oral vancomycin. 7. DVT prophylaxis: -Home dose Xarelto. Objective PUL Vital signs: Last Vital Signs Temp 97.1 F L 12/21/18 11:58 Pulse 86 12/21/18 10:00 Resp 18 12/21/18 11:17 BP 127/74 12/21/18 10:00 Pulse Ox 89 12/21/18 11:17 General appearance: no acute distress, appears uncomfortable Eyes: nonicteric ENT: oropharynx moist Neck: supple Effort: other (On BiPAP) Auscultation: bilateral: wheezes Cardiovascular: regular rate and rhythm Gastrointestinal: normoactive bowel sounds, soft, non-tender, non-distended Integumentary: normal Extremities: no cyanosis Musculoskeletal: no deformities non-focal exam anxious Results - Laboratory Findings CBC and BMP: 12/21/18 03:50 12/21/18 03:50 ABG ABG pH 7.34 pH Units (7.32-7.45) 12/21/18 04:41 ABG pCO2 52 mmHg (35-45) H 12/21/18 04:41 ABG pO2 63 mmHg (85-104) L 12/21/18 04:41 ABG O2 Saturation 90 % (95-98) L 12/21/18 04:41 PT/INR, D-dimer PT 14.2 Seconds (9.4-12.1) H D 12/20/18 03:26 D-Dimer 739 ng/mLFEU (0-500) H 12/18/18 16:26 Abnormal lab findings: Abnormal lab results WBC 1.4 K/mcL (4.3-11.1) L 12/21/18 03:50 RBC 3.79 M/mcL (3.82-4.97) L 12/21/18 03:50 Hgb 16.9 g/dL (11.5-15.4) H 12/18/18 12:21 Hct 46.9 % (35.3-44.9) H 12/18/18 12:21 MCH 34.0 pg (28.0-33.3) H 12/21/18 03:50 MCHC 36.0 g/dL (31.6-35.5) H 12/20/18 03:26 Plt Count 87 K/mcL (140-400) L 12/21/18 03:50 Immature Gran % 7.4 % (0-4) H 12/21/18 03:50 Myelocytes % 6.0 % (0) H 12/20/18 03:26 Neutrophils # 0.9 K/mcL (1.6-8.9) L 12/21/18 03:50 Lymphocytes # 0.1 K/mcL (0.6-4.6) L 12/21/18 03:50 Reactive Lymphocytes Present (Not Present) A 12/20/18 03:26 Platelet Estimate Decreased (Normal) L 12/21/18 03:50 Hypochromasia Present (Not Present) A 12/21/18 03:50 Poikilocytosis 1+ (Not Present) A 12/21/18 03:50 PT 14.2 Seconds (9.4-12.1) H D 12/20/18 03:26 APTT 60.7 Seconds (26.0-36.0) H 12/20/18 03:26 D-Dimer 739 ng/mLFEU (0-500) H 12/18/18 16:26 Heparin Anti-Xa, Unfract > 2.00 IU/mL (0.30-0.70) H* 12/19/18 16:28 ABG pH 7.22 pH Units (7.32-7.45) L 12/20/18 12:46 ABG pCO2 52 mmHg (35-45) H 12/21/18 04:41 ABG pO2 63 mmHg (85-104) L 12/21/18 04:41 ABG HCO3 28 mEq/L (21-27) H 12/21/18 04:41 ABG Total CO2 29 mEq/L (20-26) H 12/21/18 04:41 ABG O2 Saturation 90 % (95-98) L 12/21/18 04:41 ABG Base Excess -4 mEq/L (-2 to 3) L 12/19/18 05:11 VBG pH 7.27 pH Units (7.32-7.42) L 12/18/18 14:58 VBG pCO2 54 mmHg (41-51) H 12/18/18 14:58 VBG pO2 80 mmHg (25-50) H 12/18/18 14:58 Sodium 132 mEq/L (136-145) L 12/21/18 03:50 Potassium 5.2 mEq/L (3.5-5.1) H 12/18/18 12:21 Chloride 95 mEq/L (98-107) L 12/21/18 03:50 Carbon Dioxide 20 mEq/L (23-29) L 12/19/18 09:58 BUN 42 mg/dL (8-23) H 12/21/18 03:50 Creatinine 1.38 mg/dL (0.60-1.20) H 12/21/18 03:50 Est GFR ( Amer) 46 (> 60) L 12/21/18 03:50 Est GFR (Non-Af Amer) 38 (> 60) L 12/21/18 03:50 BUN/Creatinine Ratio 30 (6-26) H 12/21/18 03:50 Glucose 126 mg/dL (70-105) H 12/20/18 03:26 POC Glucose 110 mg/dL (70-99) H 12/20/18 19:57 Serum Osmolality 276 mOsm/kg (280-300) L 12/19/18 16:28 Calculated Osmolality 279 (280-300) L 12/20/18 11:22 Calcium 7.3 mg/dL (8.6-10.3) L 12/21/18 03:50 Venous Ioniz Calcium 0.99 mmol/L (1.15-1.35) L 12/21/18 04:17 Magnesium 1.1 mg/dL (1.6-2.6) L 12/21/18 03:50 Total Bilirubin 1.7 mg/dL (0.3-1.0) H 12/21/18 03:50 Direct Bilirubin 1.2 mg/dL (0.0-0.2) H 12/20/18 03:26 AST 153 Units/L (13-39) H 12/21/18 03:50 ALT 80 Units/L (7-52) H 12/21/18 03:50 B-Natriuretic Peptide 377 pg/mL (Less than 100) H 12/18/18 16:26 Serum Total Protein 4.6 g/dL (6.4-8.9) L 12/21/18 03:50 Albumin 2.5 g/dL (3.5-5.7) L 12/21/18 03:50 Globulin 2.1 g/dL (2.4-3.5) L 12/21/18 03:50 Urine Clarity Cloudy (Clear) A 12/18/18 15:06 Urine Blood Trace (Negative) H 12/18/18 15:06 Urine Bilirubin Moderate (Negative) H 12/18/18 15:06 Urine Microscopic RBC 5-15 per hpf (0-3) H 12/18/18 15:06 Ur Squamous Epith Cells Many per lpf (None-Few) H 12/18/18 15:06 Urine Osmolality 285 mOsm/kg (300-1090) L 12/18/18 15:06 Stl C. diff Tox B Gene Positive (Negative) A 12/19/18 10:43 Hep Bs Antibody < 3.10 mIU/mL (10.00-) L 12/20/18 20:25 - Microbiology Findings Microbiology Findings: Microbiology, Last 48 Hours 12/19/18 10:43 Clostridium difficile Toxin A & B - Final Stool 12/19/18 09:00 Legionella Antigen - Final Urine,Clean Catch - Clinical Findings Intake & Output: Intake & Output 12/20/18 12/21/18 12/21/18 23:59 07:59 15:59 Intake Total 1120 / 1414.3 511.2 / 1511.2 1000 / 1511.2 Output Total 200 / 1025 275 / 350 75 / 350 Balance 920 / 389.3 236.2 / 1161.2 925 / 1161.2 Weight 62.1 kg Consult Discharge Plan - Plan Referrals: Aryan Rees MD [Primary Care Provider] - <Kimberly Sigala - Last Filed: 12/21/18 16:24> Date of Encounter: 12/21/18 Objective PUL Vital signs: Last Vital Signs Temp 97.1 F L 12/21/18 12:00 Pulse 83 12/21/18 15:00 Resp 20 12/21/18 15:00 BP 90/66 12/21/18 15:00 Pulse Ox 99 12/21/18 15:00 Results - Laboratory Findings CBC and BMP: 12/21/18 03:50 12/21/18 03:50 ABG ABG pH 7.34 pH Units (7.32-7.45) 12/21/18 04:41 ABG pCO2 52 mmHg (35-45) H 12/21/18 04:41 ABG pO2 63 mmHg (85-104) L 12/21/18 04:41 ABG O2 Saturation 90 % (95-98) L 12/21/18 04:41 PT/INR, D-dimer PT 14.2 Seconds (9.4-12.1) H D 12/20/18 03:26 D-Dimer 739 ng/mLFEU (0-500) H 12/18/18 16:26 Abnormal lab findings: Abnormal lab results WBC 1.4 K/mcL (4.3-11.1) L 12/21/18 03:50 RBC 3.79 M/mcL (3.82-4.97) L 12/21/18 03:50 Hgb 16.9 g/dL (11.5-15.4) H 12/18/18 12:21 Hct 46.9 % (35.3-44.9) H 12/18/18 12:21 MCH 34.0 pg (28.0-33.3) H 12/21/18 03:50 MCHC 36.0 g/dL (31.6-35.5) H 12/20/18 03:26 Plt Count 87 K/mcL (140-400) L 12/21/18 03:50 Immature Gran % 7.4 % (0-4) H 12/21/18 03:50 Myelocytes % 6.0 % (0) H 12/20/18 03:26 Neutrophils # 0.9 K/mcL (1.6-8.9) L 12/21/18 03:50 Lymphocytes # 0.1 K/mcL (0.6-4.6) L 12/21/18 03:50 Reactive Lymphocytes Present (Not Present) A 12/20/18 03:26 Platelet Estimate Decreased (Normal) L 12/21/18 03:50 Hypochromasia Present (Not Present) A 12/21/18 03:50 Poikilocytosis 1+ (Not Present) A 12/21/18 03:50 PT 14.2 Seconds (9.4-12.1) H D 12/20/18 03:26 APTT 60.7 Seconds (26.0-36.0) H 12/20/18 03:26 D-Dimer 739 ng/mLFEU (0-500) H 12/18/18 16:26 Heparin Anti-Xa, Unfract > 2.00 IU/mL (0.30-0.70) H* 12/19/18 16:28 ABG pH 7.22 pH Units (7.32-7.45) L 12/20/18 12:46 ABG pCO2 52 mmHg (35-45) H 12/21/18 04:41 ABG pO2 63 mmHg (85-104) L 12/21/18 04:41 ABG HCO3 28 mEq/L (21-27) H 12/21/18 04:41 ABG Total CO2 29 mEq/L (20-26) H 12/21/18 04:41 ABG O2 Saturation 90 % (95-98) L 12/21/18 04:41 ABG Base Excess -4 mEq/L (-2 to 3) L 12/19/18 05:11 VBG pH 7.27 pH Units (7.32-7.42) L 12/18/18 14:58 VBG pCO2 54 mmHg (41-51) H 12/18/18 14:58 VBG pO2 80 mmHg (25-50) H 12/18/18 14:58 Sodium 132 mEq/L (136-145) L 12/21/18 03:50 Potassium 5.2 mEq/L (3.5-5.1) H 12/18/18 12:21 Chloride 95 mEq/L (98-107) L 12/21/18 03:50 Carbon Dioxide 20 mEq/L (23-29) L 12/19/18 09:58 BUN 42 mg/dL (8-23) H 12/21/18 03:50 Creatinine 1.38 mg/dL (0.60-1.20) H 12/21/18 03:50 Est GFR ( Amer) 46 (> 60) L 12/21/18 03:50 Est GFR (Non-Af Amer) 38 (> 60) L 12/21/18 03:50 BUN/Creatinine Ratio 30 (6-26) H 12/21/18 03:50 Glucose 126 mg/dL (70-105) H 12/20/18 03:26 POC Glucose 110 mg/dL (70-99) H 12/20/18 19:57 Serum Osmolality 276 mOsm/kg (280-300) L 12/19/18 16:28 Calculated Osmolality 279 (280-300) L 12/20/18 11:22 Calcium 7.3 mg/dL (8.6-10.3) L 12/21/18 03:50 Venous Ioniz Calcium 0.99 mmol/L (1.15-1.35) L 12/21/18 04:17 Magnesium 1.1 mg/dL (1.6-2.6) L 12/21/18 03:50 Total Bilirubin 1.7 mg/dL (0.3-1.0) H 12/21/18 03:50 Direct Bilirubin 1.2 mg/dL (0.0-0.2) H 12/20/18 03:26 AST 153 Units/L (13-39) H 12/21/18 03:50 ALT 80 Units/L (7-52) H 12/21/18 03:50 B-Natriuretic Peptide 377 pg/mL (Less than 100) H 12/18/18 16:26 Serum Total Protein 4.6 g/dL (6.4-8.9) L 12/21/18 03:50 Albumin 2.5 g/dL (3.5-5.7) L 12/21/18 03:50 Globulin 2.1 g/dL (2.4-3.5) L 12/21/18 03:50 Vitamin B12 > 1500 pg/mL (250-1100) H 12/21/18 12:30 Urine Clarity Cloudy (Clear) A 12/18/18 15:06 Urine Blood Trace (Negative) H 12/18/18 15:06 Urine Bilirubin Moderate (Negative) H 12/18/18 15:06 Urine Microscopic RBC 5-15 per hpf (0-3) H 12/18/18 15:06 Ur Squamous Epith Cells Many per lpf (None-Few) H 12/18/18 15:06 Urine Osmolality 285 mOsm/kg (300-1090) L 12/18/18 15:06 Stl C. diff Tox B Gene Positive (Negative) A 12/19/18 10:43 Hep Bs Antibody < 3.10 mIU/mL (10.00-) L 12/20/18 20:25 - Microbiology Findings Microbiology Findings: Microbiology, Last 48 Hours 12/19/18 10:43 Clostridium difficile Toxin A & B - Final Stool - Clinical Findings Intake & Output: Intake & Output 12/21/18 12/21/18 12/21/18 07:59 15:59 23:59 Intake Total 511.2 / 1611.2 1100 / 1611.2 Output Total 275 / 350 75 / 350 Balance 236.2 / 1261.2 1025 / 1261.2 Weight 62.1 kg - Attending Attestation I examined this patient and my medical decision-making was reviewed with the Resident Physician. I agree with the documented findings, disposition and treatment plan as described except to the extent set forth below. Patient seen and examined. Labs, radiology, chart personally reviewed. Agree with resident's history and physical, assessment, plan with following comments: [employer]: Patient follows commands, she is more awake and cooperative and wean off sedation and Precedex as much as possible so she would be able to participate in physical therapy. Pulmonary: Acceptable oxygenation and ventilation. Continue noninvasive ventilation as needed. Cardiovascular: stable GI: Nutrition per dietary and GI prophylaxis per routine Heme: DVT prophylaxis per routine. They suspect her pancytopenia is most likely related to her underlying significant history of alcohol abuse. ID: Continue antibiotics and plan to de-escalation. Continue treatment for the C. difficile. Renal; urine out put and renal function reviewed. Continue replacement of the electrolytes. Endorcine: blood glucose is monitored Lines: all lines checked and no evidence of infections Skin: skin care to prevent pressure ulcers per nursing routine care Dispo: ICU and hopefully can be transferred out in next 1-2 days. Code: Full. Prognosis. Fair
[2018-12-21 13:32] LABS: Folate 5.6 ng/mL (3.0-16.0)
[2018-12-21 13:39] LABS: Vitamin B12 > 1500 pg/mL (250-1100)
[2018-12-21] MEDS ORDERED: Calcium Gluconate 1gm/50mL 1 GM/50 ML BAG IVPB ONE (15:30)
--- NOTE | 2018-12-21 17:41 | Internal Med Progress Note ---
Hospitalist Progress Note - Encounter Date of Encounter: 12/21/18 Time of Encounter: 08:55 - Subjective Interval History: Patient was somnolent but easily arousable this morning. She was much more awake and alert than yesterday. She has been off Precedex since last night about 8 PM. She has been off BiPAP much of the night. Throughout the day, she has the some BiPAP intermittently. Antibiotics have been discontinued other than oral vancomycin for C. difficile colitis. She remains leukopenic and thrombocytopenic. I spoke with hematology/oncology and we all agree this is likely due to medication effect. We did request HIV test which was negative. Speech therapy is following her and has requested a modified barium swallow study for tomorrow to which I agree. We are minimizing sedating medications in hopes of improvement in neurocognitive activity, recovery, and nutrition. Patient denies any chest pain. She has decreased shortness of breath. She has had minimal oral intake. - Exam Vitals: Temp Pulse Resp BP Pulse Ox 96.5 F L 96 11 95/59 95 12/21/18 16:00 12/21/18 16:00 12/21/18 16:26 12/21/18 16:00 12/21/18 16:26 Exam: General: more alert and appropriate HEEN: dry mucosa, neck supple, full ROM Chest: minimal wheezing; distant breath sounds, no retractions, no crackles; RRR, No MTR Abdomen: soft, NT, ND, +BS, no HSMG Ext: no calf pain, full ROM, equal pulses Neuro: alert, awake, occasionally confused, oriented x 2; no focal deficits - Assessment and Plan (1) Respiratory failure with hypoxia and hypercapnia Current Visit: Yes Status: Acute Assessment and Plan: 1. Slowly and steadily improving. 2. Antibiotics stopped (except oral vancomycin). 3. Weaning steroids. 4. Bipap PRN now. 5. Wean oxygen as able to maintain O2 sats > 88%. 6. Discussed with Dr. Sigala and appreciate his input. (2) SALINAS (acute kidney injury) Current Visit: Yes Status: Acute Assessment and Plan: 1. Continue MIVF until able to take oral fluids adequately. 2. Monitor UOP, I/O and renal function. 3. Nephrology following. (3) Alcoholism Current Visit: Yes Status: Chronic Assessment and Plan: 1. Off Precedex. 2. Continue CIWA protocol. 3. Monitor for withdrawal. (4) C. difficile colitis Current Visit: Yes Status: Acute Assessment and Plan: 1. Continue oral vancomycin. 2. MBS tomorrow for swallow evaluation per speech. 3. Need to promote nutrition after MBS tomorrow if she passes; if does not pass, need to consider alternative means of nutrition. (5) Hyponatremia Current Visit: Yes Status: Acute Assessment and Plan: 1. Steadily and slowly improving. 2. Avoid diuretics. 3. Continue IVF and monitoring electrolytes. (6) Thrombocytopenia Current Visit: Yes Status: Acute Assessment and Plan: 1. Discussed with oncology. 2. Continue monitoring. 3. HIV negative. 4. Likely medication effect. DVT Prophylaxis: Xarelto - Time Spent with Patient Total time spent is greater than 50% in coordination of care (as documented) at patient's floor/unit and/or counseling patient: Internal Medicine: Result - Labs CBC & Chem 7: 12/21/18 03:50 12/21/18 03:50 Labs: Short CBC 12/21/18 Range/Units 03:50 WBC 1.4 L (4.3-11.1) K/mcL Hgb 12.9 (11.5-15.4) g/dL Hct 36.5 (35.3-44.9) % Plt Count 87 L (140-400) K/mcL Neutrophils # 0.9 L (1.6-8.9) K/mcL BMP 12/21/18 03:50 Sodium 132 L Potassium 3.9 Chloride 95 L Carbon Dioxide 25 BUN 42 H Creatinine 1.38 H Glucose 81 Calcium 7.3 L Liver Function 12/21/18 Range/Units 03:50 Total Bilirubin 1.7 H (0.3-1.0) mg/dL AST 153 H (13-39) Units/L ALT 80 H (7-52) Units/L Alkaline Phosphatase 62 (34-104) Units/L Albumin 2.5 L (3.5-5.7) g/dL - ABG Interpretation ABG results: ABG ABG pH 7.34 pH Units (7.32-7.45) 12/21/18 04:41 ABG pCO2 52 mmHg (35-45) H 12/21/18 04:41 ABG pO2 63 mmHg (85-104) L 12/21/18 04:41 ABG O2 Saturation 90 % (95-98) L 12/21/18 04:41 PT/INR, D-dimer PT 14.2 Seconds (9.4-12.1) H D 12/20/18 03:26 D-Dimer 739 ng/mLFEU (0-500) H 12/18/18 16:26 Consult Discharge Plan - Plan Referrals: Aryan Rees MD [Primary Care Provider] - (1) Respiratory failure with hypoxia and hypercapnia Qualifiers: Chronicity: acute on chronic Qualified Code(s): J96.21 - Acute and chronic re spiratory failure with hypoxia; J96.22 - Acute and chronic respiratory failure with hypercapnia
[2018-12-21] MEDS: Dexmedetomidine HCl 400 MCG/100 ML MLS IVC SCH (17:49)
[2018-12-21] MEDS: Thiamine (B-1) 100 MG, Folic Acid 1 MG, MVI, adult with vitamin K 10 ML in 0.9 % Sodi... IVPB SCH (18:12)
[2018-12-22] MEDS: Ipratropium/Albuterol Neb 3 ML IH SCH ×6 (04:01→19:51)
[2018-12-22 06:57] LABS: Red Cell Distribution Width 13.2 % (11.5-14.5)
[2018-12-22 06:58] LABS: Basophils % 2.4 %; Hematocrit 34.8 % (35.3-44.9); Hemoglobin 11.8 g/dL (11.5-15.4); Immature Granulocytes % 7.9 % (0-4); Lymphocytes # 0.1 K/mcL (0.6-4.6); Lymphocytes % 9.4 %; Mean Corpuscular HGB Conc 33.9 g/dL (31.6-35.5); Mean Corpuscular Hemoglobin 34.4 pg (28.0-33.3); Mean Corpuscular Volume 101.5 fL (83.0-100.0); Monocytes # 0.6 K/mcL (0.0-1.3); Monocytes % 47.2 %; Neutrophils # 0.4 K/mcL (1.6-8.9); Red Blood Count 3.43 M/mcL (3.82-4.97); Segmented Neutrophils % 33.1 %; White Blood Count 1.3 K/mcL (4.3-11.1)
[2018-12-22 07:00] LABS: Platelet Count 81 K/mcL (140-400)
[2018-12-22 07:20] LABS: Albumin 2.5 g/dL (3.5-5.7); Albumin/Globulin Ratio 1.4 (1.1-2.2); Bilirubin,Direct 1.7 mg/dL (0.0-0.2); Bilirubin,Indirect 0.6 mg/dL (0.0-1.2); Bilirubin,Total 2.3 mg/dL (0.3-1.0); Calcium 7.8 mg/dL (8.6-10.3); Globulin 1.8 g/dL (2.4-3.5); Magnesium 1.5 mg/dL (1.6-2.6); Potassium 3.7 mEq/L (3.5-5.1); Total Protein 4.3 g/dL (6.4-8.9)
[2018-12-22] MEDS ORDERED: Calcium Gluconate 2,000 MG in 0.9 % Sodium Chloride 100 ML IVPB ONE (07:27)
[2018-12-22 07:28] LABS: Platelet Estimate Slight Decrease (Normal)
[2018-12-22 07:29] LABS: Reactive Lymphocytes Present (Not Present)
[2018-12-22 07:30] LABS: Anisocytosis 1+ (Not Present)
[2018-12-22] MEDS: Budesonide/Formoterol 160/4.5 1 PUFF INH IH SCH ×3 (07:34→19:51)
--- NOTE | 2018-12-22 08:34 | Pulmonology Progress Note ---
<Archie Schroeder - Last Filed: 12/22/18 08:29> Date of Encounter: 12/22/18 Time of Encounter: 08:30 Subjective Principal diagnosis: SALINAS Interval history: Patient is a 73-year-old female past medical history of CHF, COPD, prior DVT, hypertension, osteoporosis, gout currently on colchicine, carvedilol, allopurinol, lisinopril, Lasix, spironolactone and Xarelto. Presented to the ER on for gradually progressive and worsening shortness of breath over the past 2-3 days, the patient tolerated BiPAP well however there was concern about a right lower lobe pneumonia or possible mass. Patient was noted to have elevated d-dimer however with acute kidney injury we did not perform CTA and heparinization was started. Patient was started on vancomycin and Zosyn plus azithromycin initially with de-escalation to Zosyn which continued for 3 days before being stopped. Concern for Clostridium difficile the patient was started on oral vancomycin. C. difficile testing was inconclusive however we continue to treat clinically. Patient was noted to have a pancytopenia which raised concern for pharmacological etiology versus immune deficiency, or dilutional. We have stopped vancomycin and Zosyn, electrolytes have been replenished, hepatitis panel was negative we have sent off for HIV testing hematology/oncology was consulted and is following. Patient also significant past medical history of alcohol abuse, she is currently on CIWA protocol with Ativan when necessary, we stopped Librium due to the patient having altered mental status, however this time she is having intermittent visual hallucinations and continues to call out for her who is not currently present when agitated. We started Precedex drip for the management of patient agitation and will continue to monitor closely for delirium tremens. Upon my initial evaluation this morning patient awake, alert but lethargic, she appears to becoming more confused NV concern for withdrawal/delirium tremens as high. Her vitals are within normal limits, her skin is pink warm and dry, cardio pulmonary auscultation is unremarkable, abdomen is soft, nontender nondistended, good peripheral pulses without evidence of peripheral edema. Patient will be transferred from the ICU today. We will sign off from a pulmonary standpoint. Please reconsult us with any concerns or needs. Assessment and plan: 1. Pancytopenia: -Hematology/oncology consulted and is following. -Hepatitis panel is negative, vancomycin/Zosyn has been stopped, electrolytes have been replaced, HIV testing negative. -Cautious IV fluid administration. 2. Acute kidney injury: -Nephrology consulted and is following. -Creatinine has normalized at 1.18 on 12/22/18. -Continue to monitor closely. 3. Hypocalcemia: -Several units of calcium gluconate have been given, ionized calcium level is rising. -Calcium continues to be low again on morning of 12/22/2018 at 7.8. -I will replaced with a another 2 g of calcium gluconate. 4. Hypomagnesemia: -Magnesium level is low at 1.5 on 12/22/18. -Magnesium replaced with 1 g of magnesium sulfate. -Continue to monitor closely. 5. Alcoholic hepatitis: -AST/ALT levels are continuously elevated with AST greater than 2 times ALT level representing alcoholic hepatitis. -Continue to monitor closely. 6. Clostridium difficile: -Laboratory tests are indeterminate. -Continue contact precautions. -Continue oral vancomycin. 7. DVT prophylaxis: -Home dose Xarelto. Objective PUL Vital signs: Last Vital Signs Temp 97.6 F 12/22/18 07:40 Pulse 70 12/22/18 06:00 Resp 17 12/22/18 07:35 BP 94/57 12/22/18 06:00 Pulse Ox 94 12/22/18 07:35 General appearance: no acute distress, lethargic, appears uncomfortable Eyes: nonicteric ENT: oropharynx moist Neck: supple Effort: normal Auscultation: bilateral: clear Cardiovascular: regular rate and rhythm Gastrointestinal: normoactive bowel sounds Integumentary: normal Extremities: no cyanosis, no edema Musculoskeletal: no deformities non-focal exam Results - Laboratory Findings CBC and BMP: 12/22/18 06:45 12/22/18 06:39 ABG ABG pH 7.34 pH Units (7.32-7.45) 12/21/18 04:41 ABG pCO2 52 mmHg (35-45) H 12/21/18 04:41 ABG pO2 63 mmHg (85-104) L 12/21/18 04:41 ABG O2 Saturation 90 % (95-98) L 12/21/18 04:41 PT/INR, D-dimer PT 14.2 Seconds (9.4-12.1) H D 12/20/18 03:26 D-Dimer 739 ng/mLFEU (0-500) H 12/18/18 16:26 Abnormal lab findings: Abnormal lab results WBC 1.3 K/mcL (4.3-11.1) L 12/22/18 06:45 RBC 3.43 M/mcL (3.82-4.97) L 12/22/18 06:45 Hgb 16.9 g/dL (11.5-15.4) H 12/18/18 12:21 Hct 34.8 % (35.3-44.9) L 12/22/18 06:45 MCV 101.5 fL (83.0-100.0) H 12/22/18 06:45 MCH 34.4 pg (28.0-33.3) H 12/22/18 06:45 MCHC 36.0 g/dL (31.6-35.5) H 12/20/18 03:26 Plt Count 81 K/mcL (140-400) L 12/22/18 06:45 Immature Gran % 7.9 % (0-4) H 12/22/18 06:45 Myelocytes % 6.0 % (0) H 12/20/18 03:26 Neutrophils # 0.4 K/mcL (1.6-8.9) L 12/22/18 06:45 Lymphocytes # 0.1 K/mcL (0.6-4.6) L 12/22/18 06:45 Reactive Lymphocytes Present (Not Present) A 12/22/18 06:45 Platelet Estimate Slight Decrease (Normal) L 12/22/18 06:45 Hypochromasia Present (Not Present) A 12/21/18 03:50 Poikilocytosis 1+ (Not Present) A 12/21/18 03:50 Anisocytosis 1+ (Not Present) A 12/22/18 06:45 PT 14.2 Seconds (9.4-12.1) H D 12/20/18 03:26 APTT 60.7 Seconds (26.0-36.0) H 12/20/18 03:26 D-Dimer 739 ng/mLFEU (0-500) H 12/18/18 16:26 Heparin Anti-Xa, Unfract > 2.00 IU/mL (0.30-0.70) H* 12/19/18 16:28 ABG pH 7.22 pH Units (7.32-7.45) L 12/20/18 12:46 ABG pCO2 52 mmHg (35-45) H 12/21/18 04:41 ABG pO2 63 mmHg (85-104) L 12/21/18 04:41 ABG HCO3 28 mEq/L (21-27) H 12/21/18 04:41 ABG Total CO2 29 mEq/L (20-26) H 12/21/18 04:41 ABG O2 Saturation 90 % (95-98) L 12/21/18 04:41 ABG Base Excess -4 mEq/L (-2 to 3) L 12/19/18 05:11 VBG pH 7.27 pH Units (7.32-7.42) L 12/18/18 14:58 VBG pCO2 54 mmHg (41-51) H 12/18/18 14:58 VBG pO2 80 mmHg (25-50) H 12/18/18 14:58 Sodium 134 mEq/L (136-145) L 12/22/18 06:39 Potassium 5.2 mEq/L (3.5-5.1) H 12/18/18 12:21 Chloride 95 mEq/L (98-107) L 12/21/18 03:50 Carbon Dioxide 20 mEq/L (23-29) L 12/19/18 09:58 BUN 42 mg/dL (8-23) H 12/22/18 06:39 Creatinine 1.38 mg/dL (0.60-1.20) H 12/21/18 03:50 Est GFR ( Amer) 55 (> 60) L 12/22/18 06:39 Est GFR (Non-Af Amer) 45 (> 60) L 12/22/18 06:39 BUN/Creatinine Ratio 36 (6-26) H 12/22/18 06:39 Glucose 126 mg/dL (70-105) H 12/20/18 03:26 POC Glucose 125 mg/dL (70-99) H 12/21/18 20:34 Serum Osmolality 276 mOsm/kg (280-300) L 12/19/18 16:28 Calculated Osmolality 279 (280-300) L 12/20/18 11:22 Calcium 7.8 mg/dL (8.6-10.3) L 12/22/18 06:39 Venous Ioniz Calcium 0.99 mmol/L (1.15-1.35) L 12/21/18 04:17 Magnesium 1.5 mg/dL (1.6-2.6) L 12/22/18 06:39 Total Bilirubin 2.3 mg/dL (0.3-1.0) H 12/22/18 06:39 Direct Bilirubin 1.7 mg/dL (0.0-0.2) H 12/22/18 06:39 AST 204 Units/L (13-39) H 12/22/18 06:39 ALT 98 Units/L (7-52) H 12/22/18 06:39 B-Natriuretic Peptide 377 pg/mL (Less than 100) H 12/18/18 16:26 Serum Total Protein 4.3 g/dL (6.4-8.9) L 12/22/18 06:39 Albumin 2.5 g/dL (3.5-5.7) L 12/22/18 06:39 Globulin 1.8 g/dL (2.4-3.5) L 12/22/18 06:39 Vitamin B12 > 1500 pg/mL (250-1100) H 12/21/18 12:30 Urine Clarity Cloudy (Clear) A 12/18/18 15:06 Urine Blood Trace (Negative) H 12/18/18 15:06 Urine Bilirubin Moderate (Negative) H 12/18/18 15:06 Urine Microscopic RBC 5-15 per hpf (0-3) H 12/18/18 15:06 Ur Squamous Epith Cells Many per lpf (None-Few) H 12/18/18 15:06 Urine Osmolality 285 mOsm/kg (300-1090) L 12/18/18 15:06 Stl C. diff Tox B Gene Positive (Negative) A 12/19/18 10:43 Hep Bs Antibody < 3.10 mIU/mL (10.00-) L 12/20/18 20:25 - Clinical Findings Intake & Output: Intake & Output 12/21/18 12/22/18 12/22/18 23:59 07:59 15:59 Intake Total 1152 / 2763.2 Output Total 190 / 665 225 / 225 Balance 962 / 2098.2 -225 / -225 Weight 68.8 kg Consult Discharge Plan - Plan Referrals: Aryan Rees MD [Primary Care Provider] - <Kimberly Sigala - Last Filed: 12/23/18 09:48> Date of Encounter: 12/22/18 Objective PUL Vital signs: Last Vital Signs Temp 97.3 F L 12/22/18 15:44 Pulse 70 12/22/18 15:00 Resp 18 12/22/18 14:51 BP 83/61 12/22/18 14:51 Pulse Ox 98 12/22/18 14:51 Results - Laboratory Findings CBC and BMP: 12/22/18 06:45 12/22/18 06:39 ABG ABG pH 7.25 pH Units (7.32-7.45) L 12/22/18 10:56 ABG pCO2 57 mmHg (35-45) H 12/22/18 10:56 ABG pO2 91 mmHg (85-104) 12/22/18 10:56 ABG O2 Saturation 95 % (95-98) 12/22/18 10:56 PT/INR, D-dimer PT 14.2 Seconds (9.4-12.1) H D 12/20/18 03:26 D-Dimer 739 ng/mLFEU (0-500) H 12/18/18 16:26 Abnormal lab findings: Abnormal lab results WBC 1.3 K/mcL (4.3-11.1) L 12/22/18 06:45 RBC 3.43 M/mcL (3.82-4.97) L 12/22/18 06:45 Hgb 16.9 g/dL (11.5-15.4) H 12/18/18 12:21 Hct 34.8 % (35.3-44.9) L 12/22/18 06:45 MCV 101.5 fL (83.0-100.0) H 12/22/18 06:45 MCH 34.4 pg (28.0-33.3) H 12/22/18 06:45 MCHC 36.0 g/dL (31.6-35.5) H 12/20/18 03:26 Plt Count 81 K/mcL (140-400) L 12/22/18 06:45 Immature Gran % 7.9 % (0-4) H 12/22/18 06:45 Myelocytes % 6.0 % (0) H 12/20/18 03:26 Neutrophils # 0.4 K/mcL (1.6-8.9) L 12/22/18 06:45 Lymphocytes # 0.1 K/mcL (0.6-4.6) L 12/22/18 06:45 Reactive Lymphocytes Present (Not Present) A 12/22/18 06:45 Platelet Estimate Slight Decrease (Normal) L 12/22/18 06:45 Hypochromasia Present (Not Present) A 12/21/18 03:50 Poikilocytosis 1+ (Not Present) A 12/21/18 03:50 Anisocytosis 1+ (Not Present) A 12/22/18 06:45 PT 14.2 Seconds (9.4-12.1) H D 12/20/18 03:26 APTT 60.7 Seconds (26.0-36.0) H 12/20/18 03:26 D-Dimer 739 ng/mLFEU (0-500) H 12/18/18 16:26 Heparin Anti-Xa, Unfract > 2.00 IU/mL (0.30-0.70) H* 12/19/18 16:28 ABG pH 7.25 pH Units (7.32-7.45) L 12/22/18 10:56 ABG pCO2 57 mmHg (35-45) H 12/22/18 10:56 ABG pO2 63 mmHg (85-104) L 12/21/18 04:41 ABG HCO3 28 mEq/L (21-27) H 12/21/18 04:41 ABG Total CO2 27 mEq/L (20-26) H 12/22/18 10:56 ABG O2 Saturation 90 % (95-98) L 12/21/18 04:41 ABG Base Excess -3 mEq/L (-2 to 3) L 12/22/18 10:56 VBG pH 7.27 pH Units (7.32-7.42) L 12/18/18 14:58 VBG pCO2 54 mmHg (41-51) H 12/18/18 14:58 VBG pO2 80 mmHg (25-50) H 12/18/18 14:58 Sodium 134 mEq/L (136-145) L 12/22/18 06:39 Potassium 5.2 mEq/L (3.5-5.1) H 12/18/18 12:21 Chloride 95 mEq/L (98-107) L 12/21/18 03:50 Carbon Dioxide 20 mEq/L (23-29) L 12/19/18 09:58 BUN 42 mg/dL (8-23) H 12/22/18 06:39 Creatinine 1.38 mg/dL (0.60-1.20) H 12/21/18 03:50 Est GFR ( Amer) 55 (> 60) L 12/22/18 06:39 Est GFR (Non-Af Amer) 45 (> 60) L 12/22/18 06:39 BUN/Creatinine Ratio 36 (6-26) H 12/22/18 06:39 Glucose 126 mg/dL (70-105) H 12/20/18 03:26 POC Glucose 125 mg/dL (70-99) H 12/21/18 20:34 Serum Osmolality 276 mOsm/kg (280-300) L 12/19/18 16:28 Calculated Osmolality 279 (280-300) L 12/20/18 11:22 Calcium 7.8 mg/dL (8.6-10.3) L 12/22/18 06:39 Venous Ioniz Calcium 0.99 mmol/L (1.15-1.35) L 12/21/18 04:17 Magnesium 1.5 mg/dL (1.6-2.6) L 12/22/18 06:39 Total Bilirubin 2.3 mg/dL (0.3-1.0) H 12/22/18 06:39 Direct Bilirubin 1.7 mg/dL (0.0-0.2) H 12/22/18 06:39 AST 204 Units/L (13-39) H 12/22/18 06:39 ALT 98 Units/L (7-52) H 12/22/18 06:39 B-Natriuretic Peptide 377 pg/mL (Less than 100) H 12/18/18 16:26 Serum Total Protein 4.3 g/dL (6.4-8.9) L 12/22/18 06:39 Albumin 2.5 g/dL (3.5-5.7) L 12/22/18 06:39 Globulin 1.8 g/dL (2.4-3.5) L 12/22/18 06:39 Vitamin B12 > 1500 pg/mL (250-1100) H 12/21/18 12:30 Urine Clarity Cloudy (Clear) A 12/22/18 12:59 Urine Protein 30 mg/dL (Neg-Trace) H 12/22/18 12:59 Urine Ketones Trace mg/dL (Negative) H 12/22/18 12:59 Urine Blood Large (Negative) H 12/22/18 12:59 Urine Bilirubin Small (Negative) H 12/22/18 12:59 Ur Leukocyte Esterase Large (Negative) H 12/22/18 12:59 Urine Microscopic RBC 30-50 per hpf (0-3) H 12/22/18 12:59 Urine Microscopic WBC TNTC per hpf (0-3) H 12/22/18 12:59 Ur Squamous Epith Cells Moderate per lpf (None-Few) H 12/22/18 12:59 Urine Yeast Many per hpf (None Seen) H 12/22/18 12:59 Ur Culture Indicated? YES (NO) A 12/22/18 12:59 Urine Osmolality 285 mOsm/kg (300-1090) L 12/18/18 15:06 Stl C. diff Tox B Gene Positive (Negative) A 12/19/18 10:43 Hep Bs Antibody < 3.10 mIU/mL (10.00-) L 12/20/18 20:25 - Clinical Findings Intake & Output: Intake & Output 12/21/18 12/22/18 12/22/18 23:59 07:59 15:59 Intake Total 1152 / 2763.2 Output Total 190 / 665 225 / 650 425 / 650 Balance 962 / 2098.2 -225 / -650 -425 / -650 Weight 68.8 kg - Attending Attestation I examined this patient and my medical decision-making was reviewed with the Resident Physician. I agree with the documented findings, disposition and treatment plan as described except to the extent set forth below. Patient seen and examined. Labs, radiology, chart personally reviewed. Agree with resident's history and physical, assessment, plan with following comments: NEWS INTERN: Patient follows commands, titrate medication to keep her comfortable. Pulmonary: Acceptable oxygenation and ventilation. If noninvasive ventilation with the patient comfort, it would be reasonable to support her with that. Cardiovascular: stable GI: Nutrition per dietary and GI prophylaxis per routine. Patient will be at risk of aspiration. Heme: DVT prophylaxis per routine ID: Continue antibiotics and plan to de-escalation. Treatment of C. difficile is reasonable evening patient is DNR comfort care. Renal; urine out put and renal function reviewed Endorcine: blood glucose is monitored Lines: all lines checked and no evidence of infections Skin: skin care to prevent pressure ulcers per nursing routine care Dispo: Home with hospice Code: DNR CC/DNI. Prognosis. Overall poor We will sign off and please call for any questions.
[2018-12-22] MEDS: Nystatin SUSP 5 ML UD.LIQ PO SCH ×4 (08:56→20:37)
[2018-12-22] MEDS: Insulin LISPRO 300 UNITS/3 ML VIAL SQ SCH ×3 (08:57→15:57)
[2018-12-22] MEDS: Vancomycin Oral Soln 125 MG/2.5 ML UDC PO SCH ×4 (08:57→20:37)
[2018-12-22] MEDS: D5% in 0.9% NACL 1,000 ML IVC SCH ×2 (10:15→15:59)
[2018-12-22] MEDS ORDERED: 0.9 % Sodium Chloride 1,000 ML ONE (10:55)
[2018-12-22 11:02] LABS: ABG Base Excess -3 mEq/L (-2 to 3); ABG HCO3 25 mEq/L (21-27); ABG Oxygen Saturation 95 % (95-98); ABG PCO2 57 mmHg (35-45); ABG PH 7.25 pH Units (7.32-7.45); ABG PO2 91 mmHg (85-104); ABG TCO2 27 mEq/L (20-26); Blood Gas PEEP 8 cm H2O
[2018-12-22] MEDS ORDERED: predniSONE 20 MG TABLET PO ONE (11:14)
--- NOTE | 2018-12-22 11:38 | Internal Med Progress Note ---
Hospitalist Progress Note - Encounter Date of Encounter: 12/22/18 Time of Encounter: 07:45 - Subjective Interval History: Patient was alert this morning, now somnolent again. She has been on BiPap for a few hours. Despite BiPap, she maintains a respiratory acidosis. I removed her BiPap temporarily and had a [id number] discussion with patient. I inquired as to her wishes about ventilator if necessary, and she adamantly stated "no ventilator". I asked her if she would refuse a ventilator even if that meant dying and she again stated "no ventilator". I discussed with her that she is BiPAP dependent the last 5 days since admission and that we cannot wean her off the BiPAP more than a few hours. I therefore recommend palliative care consult with patient and family to discuss options. I informed her that those options include mechanical ventilation if necessary, tracheostomy for BiPAP dependency at home, and, lastly, palliative care. She was receptive to palliative care consultation. I contacted the and asked him to come in to the hospital to meet with the team and palliative care team. I also consulted palliative care as I am concerned that she will not improve beyond her current baseline. - Exam Vitals: Temp Pulse Resp BP Pulse Ox 97.8 F 80 16 78/55 96 12/22/18 10:00 12/22/18 10:00 12/22/18 11:04 12/22/18 10:00 12/22/18 11:04 Exam: General: weak, frail, somnolent, arousable, oriented x 3, conversant HEENT: dry mucosa, neck supple, BiPap in place, removed temporarily Chest: Distant breath sounds, prolonged expiratory phase, diminished breath sounds at bases, rhonchi and scattered wheezes, RRR Abdomen: Soft, NT, ND, + BS, NO HSMG Ext: cap refill 3 seconds; no calf pain; full ROM Neuro: somnolent, arousable, no focal deficits Skin: warm, dry, mild tenting - Assessment and Plan (1) Respiratory failure with hypoxia and hypercapnia Current Visit: Yes Status: Acute Assessment and Plan: 1. Patient is BiPap dependent for most of the day in a 24 hour period. 2. Consult palliative care to discuss goals of care. 3. Patient refuses intubation. CODE status changed to DNRA/DNI. 4. I called to come in and meet with team. 5. Continue BiPap for now. (2) SALINAS (acute kidney injury) Current Visit: Yes Status: Resolved Assessment and Plan: 1. Decrease MIV and add dextrose to avoid hypoglycemia. 2. Nutrition is poor and patient will NG or PEG feeds soon vs comfort care only. (3) Alcoholism Current Visit: Yes Status: Chronic Assessment and Plan: 1. Ativan and Precedex stopped as she has not needed either in > 24 hours. 2. Monitor clinically. (4) C. difficile colitis Current Visit: Yes Status: Acute Assessment and Plan: 1. Oral vancomycin. (5) Hyponatremia Current Visit: Yes Status: Acute Assessment and Plan: 1. Resolved. 2. Monitor. (6) Thrombocytopenia Current Visit: Yes Status: Acute Assessment and Plan: 1. Continue to monitor. 2. Likely medication effect per HEM/ONC. Offending meds stopped several days ago. DVT Prophylaxis: Xarelto. - Time Spent with Patient Total time spent is greater than 50% in coordination of care (as documented) at patient's floor/unit and/or counseling patient: Greater than 35 minutes Internal Medicine: Result - Labs CBC & Chem 7: 12/22/18 06:45 12/22/18 06:39 Labs: Short CBC 12/22/18 Range/Units 06:45 WBC 1.3 L (4.3-11.1) K/mcL Hgb 11.8 (11.5-15.4) g/dL Hct 34.8 L (35.3-44.9) % Plt Count 81 L (140-400) K/mcL Neutrophils # 0.4 L (1.6-8.9) K/mcL BMP 12/22/18 06:39 Sodium 134 L Potassium 3.7 Chloride 107 Carbon Dioxide 28 BUN 42 H Creatinine 1.18 Glucose 102 Calcium 7.8 L Liver Function 12/22/18 Range/Units 06:39 Total Bilirubin 2.3 H (0.3-1.0) mg/dL Direct Bilirubin 1.7 H (0.0-0.2) mg/dL AST 204 H (13-39) Units/L ALT 98 H (7-52) Units/L Alkaline Phosphatase 85 (34-104) Units/L Albumin 2.5 L (3.5-5.7) g/dL - ABG Interpretation ABG results: ABG ABG pH 7.25 pH Units (7.32-7.45) L 12/22/18 10:56 ABG pCO2 57 mmHg (35-45) H 12/22/18 10:56 ABG pO2 91 mmHg (85-104) 12/22/18 10:56 ABG O2 Saturation 95 % (95-98) 12/22/18 10:56 PT/INR, D-dimer PT 14.2 Seconds (9.4-12.1) H D 12/20/18 03:26 D-Dimer 739 ng/mLFEU (0-500) H 12/18/18 16:26 - Impressions Impressions Chest X-Ray 12/22/18 04:00 IMPRESSION: New bilateral effusions and bibasilar airspace disease. D/ / Markie Sanz / Markie Sanz Interpreting Provider: Markie Sanz Consult Discharge Plan - Plan Referrals: Aryan Rees MD [Primary Care Provider] - (1) Respiratory failure with hypoxia and hypercapnia Qualifiers: Chronicity: acute on chronic Qualified Code(s): J96.21 - Acute and chronic respiratory failure with hypoxia; J96.22 - Acute and chronic respiratory failure with hypercapnia
[2018-12-22 13:05] LABS: Bilirubin,Urine Small (Negative); Blood,Urine Large (Negative); Clarity,Urine Cloudy (Clear); Color,Urine Yellow (Yellow); Glucose,Urine (UA) Normal (Normal); Ketones,Urine Trace mg/dL (Negative); Leukocyte Esterase,Urine Large (Negative); Nitrite,Urine Negative (Negative); Protein,Urine 30 mg/dL (Neg-Trace); Specific Gravity,Urine 1.018 (1.010-1.025); Urobilinogen,Urine Normal (Normal)
[2018-12-22 13:07] LABS: Bacteria,Urine None Seen per hpf (None-Few); Squamous Epithelial Cell,Urine Moderate per lpf (None-Few); WBC,Urine TNTC per hpf (0-3)
[2018-12-22 13:45] LABS: Yeast,Urine Many per hpf (None Seen)
[2018-12-22 13:48] LABS: RBC,Urine 30-50 per hpf (0-3)
--- NOTE | 2018-12-22 14:37 | Palliative - Consult Note ---
Date of Encounter: 12/22/18 Time of Encounter: 12:00 - Assessment and Plan (1) Advanced care planning/counseling discussion Current Visit: Yes Status: Acute Assessment and plan: [id number]: Met with pt, Luis and son Carlo, along with ICU physician Dr. Martin and ICU resident. Discussed current medical condition, trajectory of illness, treatment options and overall poor prognosis. Dr. Martin explained that pt is not improving, despite optimal medical treatment, becoming more BiPAP dependent. Discussed that at this point potions are possibly transient intubation to the if the respiratory failure can improve, and possible trach and PEG, or comfort care and hospice. patient was against intubation and mechanical ventilation, and did not agree with trach or PEG. She demanded repeatedly to return home. Explained that if she was to return home, she was likely to in days to weeks, Patient demonstrated understanding. and son were appropriately emotional, but wanted to proceed with patient's wish to return home with hospice. Referral was made to [facility], for possible discharge home tomorrow with hospice, on BiPAP. Family and patient agreed for code status change to DNRCC. (2) Respiratory failure with hypoxia and hypercapnia Current Visit: Yes Status: Acute Assessment and plan: Continue management per ICU team with bipap prn and steroids. will be continued on hospice as tolerated by patient. Qualifiers: Chronicity: acute on chronic Qualified Code(s): J96.21 - Acute and chronic respiratory failure with hypoxia; J96.22 - Acute and chronic respiratory failure with hypercapnia (3) COPD exacerbation Current Visit: Yes Status: Acute (4) Alcoholism Current Visit: Yes Status: Chronic Assessment and plan: CIWA protocol discontinue. pt does not appear in withdrawal or DTs. (5) C. difficile colitis Current Visit: Yes Status: Acute Assessment and plan: continue Vancomycin PO (6) Altered mental status Current Visit: Yes Status: Acute Assessment and plan: Patient becomes agitated, then lethargic after a few hours off Bipap, but her mental status improves after a few hours on BIPAP. Avoid physical restrains, and if pt is combative, recommend Haldol prn. Qualifiers: Qualified Code(s): R41.82 - Altered mental status, unspecified (7) Palliative care encounter Current Visit: Yes Status: Acute Palliative-CN HPI - Data of Consult Patient: new to practice Consult date: 12/22/18 Requesting Physician: Addison Eduardo MD Primary Care Provider: Aryan Rees MD - Consult Narrative Palliative Care/Comfort Measures: Palliative care Reason for consult: Goals of care discussion History of present illness: Ms. Sands is a 73 year old female with past medical history COPD, CHF with EF of 50-55%, hypertension who presented to the ED on 12/18/18 with respiratory distress requiring BiPAP. Patient presented from home, and per chart review she is a heavy smoker and drinks about 1 pint of wiskey a day. Since admission, pt has been increasingly Bipap dependent and when off BIPAP will become confused and then lethargic in a few hours. Per discussion with ICU physician Dr. Penaloza, pt refusing intubation and more aggressive management. Palliative care consult for goals of care. 12:00 pt was seen and examined, at first was on BiPAP, but took it off. She was AAOx2, but was not able to give insight in her medical care. Stated that she is not feeling well, admit to SOB, denies pain, nausea and vomiting. 1330:Successively, pt was seen with and son at the bedside, along with ICU physician Dr. Penaloza, and ICU resident. She was awake, oriented to person and place. Answering questions appropriately. CC: Addison Eduardo MD - Time Spent with Patient Time: Total time spent is greater than 50% in coordination of care (as documented) at patient's floor/unit and/or counseling patient: 80 minutes Past Med Surg Social Fam HX - Past Medical History Medical history: CHF, COPD, DVT, hypertension, osteoporosis Additional medical history: gout, ETOH Psychiatric history: no psych history - Past Surgical History Surgical History: AICD Additional surgical history: back surgery, tubal ligation, PPM - Social History Smoking Status: Former smoker Smokeless Tobacco Status: No Alcohol use: occasionally, heavy Drug use: none Medications and Allergies Albuterol Sulfate [Proair Respiclick] 1 - 2 puff IH Q6H PRN 03/31/15 [History] Allopurinol [Zyloprim] 100 mg PO DAILY 03/31/15 [History] Denosumab [Prolia (For Outpatient Infusion)] 60 mg IV [id number] 03/31/15 [History] Furosemide [Lasix] 40 mg PO DAILY 03/31/15 [History] Lisinopril [Zestril] 2.5 mg PO DAILY 03/31/15 [History] Spironolactone [Aldactone] 12.5 mg PO DAILY 03/31/15 [History] Rivaroxaban [Xarelto] 20 mg PO DAILY #30 tablet 09/26/17 [Rx] Budesonide/Formoterol 160/4.5 [Symbicort 160/4.5] 2 puff IH BIDR 10/17/18 [History] Carvedilol [Coreg] 25 mg PO BID 10/17/18 [History] Cholecalciferol (Vitamin D3) [Vitamin D3] 5,000 unit PO DAILY 12/18/18 [History] Colchicine [Colcrys] 0.6 mg PO DAILY 12/18/18 [History] Ipratropium/Albuterol Sulfate [Combivent Respimat Inhal [place]] 2 inh IH Q6HR PRN 12/18/18 [History] Tiotropium [place] [Spiriva Respimat] 2 inh IH DAILY 12/18/18 [History] Allergy/AdvReac Type Severity Reaction Status Date / Time latex Allergy Unknown Rash Verified 09/26/17 08:03 aspirin AdvReac Unknown Stomach Verified 09/26/17 08:03 upset - Constitutional Constitutional ROS PAL: decreased appetite, fatigue - EENT Additional comments: negative - Cardiovascular Cardiovascular ROS: chest pain at rest, leg edema - Respiratory Respiratory: cough, dyspnea - Gastrointestinal Gastrointestinal: no abdominal pain - Genitourinary Palliative ROS female: no dysuria - Musculoskeletal Musculoskeletal ROS IM: muscle weakness - Integumentary ROS Integumentary: unusual bruising (b/l arms) Palliative Care-Exam - Constitutional Vitals: Temp Pulse Resp BP Pulse Ox 97.3 F L 70 13 75/56 98 12/22/18 11:52 12/22/18 14:10 12/22/18 14:10 12/22/18 14:10 12/22/18 14:10 Exam: Vitals reviewed General appearance: in no acute distress Eyes: nonicteric, EENT: oropharynx dry Neck: supple, Chest: bilateral: reduced breath sounds, normal effort Cardiovascular: regular rate and rhythm, no murmur, rub, gallop Gastrointestinal: soft, non-tender, non-distended, +BS Integumentary: bruises on b/l arms Extremities: + edema, no clubbing, normal capillary refill Musculoskeletal: no deformities Neurologic: AAOx2, non-focal exam Psych: mood appropriate, affect normal Internal Medicine - CN: Reslt - Labs CBC & Chem 7: 12/22/18 06:45 12/22/18 06:39 Labs: Short CBC 12/22/18 Range/Units 06:45 WBC 1.3 L (4.3-11.1) K/mcL Hgb 11.8 (11.5-15.4) g/dL Hct 34.8 L (35.3-44.9) % Plt Count 81 L (140-400) K/mcL Neutrophils # 0.4 L (1.6-8.9) K/mcL BMP 12/22/18 06:39 Sodium 134 L Potassium 3.7 Chloride 107 Carbon Dioxide 28 BUN 42 H Creatinine 1.18 Glucose 102 Calcium 7.8 L Liver Function 12/22/18 Range/Units 06:39 Total Bilirubin 2.3 H (0.3-1.0) mg/dL Direct Bilirubin 1.7 H (0.0-0.2) mg/dL AST 204 H (13-39) Units/L ALT 98 H (7-52) Units/L Alkaline Phosphatase 85 (34-104) Units/L Albumin 2.5 L (3.5-5.7) g/dL Urine 12/22/18 Range/Units 12:59 Urine Color Yellow (Yellow) Urine Clarity Cloudy A (Clear) Urine pH 6.0 (5.0-8.0) pH Units Ur Specific [place] 1.018 (1.010-1.025) Urine Protein 30 H (Neg-Trace) mg/dL Urine Glucose (UA) Normal (Normal) mg/dL - ABG Interpretation ABG results: ABG ABG pH 7.25 pH Units (7.32-7.45) L 12/22/18 10:56 ABG pCO2 57 mmHg (35-45) H 12/22/18 10:56 ABG pO2 91 mmHg (85-104) 12/22/18 10:56 ABG O2 Saturation 95 % (95-98) 12/22/18 10:56 PT/INR, D-dimer PT 14.2 Seconds (9.4-12.1) H D 12/20/18 03:26 D-Dimer 739 ng/mLFEU (0-500) H 12/18/18 16:26 - Impressions Impressions Chest X-Ray 12/22/18 04:00 IMPRESSION: New bilateral effusions and bibasilar airspace disease. D/ / Markie Sanz / Markie Sanz Interpreting Provider: Markie Sanz Consult Discharge Plan - Plan Referrals: Aryan Rees MD [Primary Care Provider] - Palliative Quality Palliative Quality: Screen for Code Status: Yes, Screen for Goals of Care: Yes, Screen for Pain: Yes, If Pain Regimen Started, Initiate Bowel Regimen: Yes, Screen for Nausea/Vomitting: Yes Code Status: 12/18/18 15:10 Resuscitation Status: Active [RES] Routine Comment: Resuscitation Status: Full Code 12/22/18 11:09 DNR [Resuscitation Status: Active] [RES] Routine Comment: Resuscitation Status: [id number]
[2018-12-22] MEDS: 0.9 % Sodium Chloride 1,000 ML IVC SCH (15:54)
[2018-12-22] MEDS: Heparin 25,000 UNIT/250 ML D5W 25,000 UNIT/250 ML IV.SOLN IVC SCH (15:57)
[2018-12-22] MEDS ORDERED: Ondansetron 4 MG/2 ML VIAL IVP STA (16:29)
[2018-12-22] MEDS: Thiamine (B-1) 100 MG, Folic Acid 1 MG, MVI, adult with vitamin K 10 ML in 0.9 % Sodi... IVPB SCH (16:33)
[2018-12-22] MEDS ORDERED: *HR* Rivaroxaban 10 MG TABLET PO SCH (17:00)
[2018-12-23] MEDS: Ipratropium/Albuterol Neb 3 ML IH SCH ×2 (00:09→04:10)
[2018-12-23] MEDS ORDERED: 0.9 % Sodium Chloride 1,000 ML ONE ×2 (00:25→02:14)
[2018-12-23] MEDS ORDERED: 0.9 % Sodium Chloride 1,000 ML IVC ONE (02:40)
[2018-12-23] MEDS: D5% in 0.9% NACL 1,000 ML IVC SCH (04:06)
[2018-12-23 06:14] VITALS: BP 64/50
--- NOTE | 2018-12-23 07:47 | Discharge Summary ---
Orders not resulted at time of discharge: Pending orders 12/18/18 15:47 Culture,Sputum with Gram Stain [RM] Stat 12/18/18 16:26 Culture,Blood [BC] Stat 12/20/18 11:22 Hep Ind Thromb(HIT) PF4 IgG Urgent 12/21/18 12:30 HIV-1 RNA Qualitative (Detect) Stat 12/22/18 12:59 Culture,Urine [RM] Stat Date of Encounter: 12/23/18 Time of Encounter: 06:50 - Discharge Diagnosis (1) Respiratory failure with hypoxia and hypercapnia Priority: Primary Status: Acute Qualifiers: Chronicity: acute on chronic Qualified Code(s): J96.21 - Acute and chronic respiratory failure with hypoxia; J96.22 - Acute and chronic respiratory failure with hypercapnia (2) SALINAS (acute kidney injury) Priority: Primary Status: Resolved (3) Alcoholism Priority: Secondary Status: Chronic (4) C. difficile colitis Priority: Primary Status: Acute (5) Hyponatremia Priority: Primary Status: Acute (6) Thrombocytopenia Priority: Primary Status: Acute Hospital course: Ms. Sands is a 73 year old female who was admitted several days ago in acute hypoxemic and hypercapnic respiratory failure, severe dehydration with hyponatremia, acute kidney injury, alcoholism, and Clostridium difficile colitis. Over the course of the following several days, she improved steadily. However, she was BiPAP dependent for most of the day every day. After repeated trials of weaning her off BiPAP unsuccessfully, I had a [id number] talk with patient yesterday about her wishes. She informed me that she did not want anything aggressive to be done and wanted to go home to be with her family, dogs, and to pass away at home peacefully. She refused to have any aggressive measures, including intubation. Therefore, I summoned her and son to the hospital yesterday and consulted the palliative care team. I met with barber tam, palliative care team, , and son yesterday. Patient was adamant and persistent that she wanted no intervention and wished to go home with HOSPICE and wished to remain DNR CC. Family was emotional and tearful but respective of her decision. Plans were being arranged yesterday to discharge patient home today with HOSPICE. Unfortunately, overnight, she took a turn for the worse and became less responsive, even on BiPAP. She became apneic and her blood pressure was declining. Multiple phone call times were made by nursing staff and the nighttime physician trying to contact family. However, there was no answer. Voicemails were left with family. I arrived this morning and was informed of her rapid declining status. I assessed patient and, at that time, she was breathing in sync with the BiPAP machine. She had a very weak and thready pulse, and she was hypotensive with blood pressure of 50s over palp. I tried contacting her and son by telephone but was unsuccessful. I left a voicemail for them to call us back as soon as possible. In honor of her wishes, I did not proceed with any aggressive measures as she wished to be treated with comfort care measures only. Just before 7:15 AM, I was called to bedside by her RN as there was no detectable pulse. I examined the patient and she was apneic, pulseless, and had no sign of spontaneous breathing and/or c irculation. Patient was pronounced at 7:15 AM. Her called roughly 10 minutes later, and I informed him of the overnight course and her on this phone call. He was appropriately emotional but thankful. Unfortunately, patient in the hospital and was unable to return home with HOSPICE as she wished. Time of again was 7:15 AM Cause of : 1. Acute respiratory failure with hypoxia and hypercapnia 2. Clostridium Difficile colitis Other contributing factors: 1. COPD 2. Chronic diastolic heart failure 3. Alcohol abuse 4. Hypertension Discharge discussed with: other () - Time Spent with Patient Total time spent providing and/or coordinating discharge services: Time spent: Greater than 30 minutes (42 minutes) - Discharge Medications Prescriptions: No Action Allopurinol [Zyloprim] 100 mg PO DAILY Lisinopril [Zestril] 2.5 mg PO DAILY Furosemide [Lasix] 40 mg PO DAILY Spironolactone [Aldactone] 12.5 mg PO DAILY Denosumab [Prolia (For Outpatient Infusion)] 60 mg IV [id number] Albuterol Sulfate [Proair Respiclick] 1 - 2 puff IH Q6H PRN PRN Reason: Shortness Of Breath Rivaroxaban [Xarelto] 20 mg PO DAILY #30 tablet Carvedilol [Coreg] 25 mg PO BID Budesonide/Formoterol 160/4.5 [Symbicort 160/4.5] 2 puff IH BIDR Colchicine [Colcrys] 0.6 mg PO DAILY Cholecalciferol (Vitamin D3) [Vitamin D3] 5,000 unit PO DAILY Ipratropium/Albuterol Sulfate [Combivent Respimat Inhal [place]] 2 inh IH Q6HR PRN PRN Reason: sob/wheezing Tiotropium [place] [Spiriva Respimat] 2 inh IH DAILY Home Medications: Albuterol Sulfate [Proair Respiclick] 1 - 2 puff IH Q6H PRN 03/31/15 [History] Allopurinol [Zyloprim] 100 mg PO DAILY 03/31/15 [History] Denosumab [Prolia (For Outpatient Infusion)] 60 mg IV [id number] 03/31/15 [History] Furosemide [Lasix] 40 mg PO DAILY 03/31/15 [History] Lisinopril [Zestril] 2.5 mg PO DAILY 03/31/15 [History] Spironolactone [Aldactone] 12.5 mg PO DAILY 03/31/15 [History] Rivaroxaban [Xarelto] 20 mg PO DAILY #30 tablet 09/26/17 [Rx] Budesonide/Formoterol 160/4.5 [Symbicort 160/4.5] 2 puff IH BIDR 10/17/18 [History] Carvedilol [Coreg] 25 mg PO BID 10/17/18 [History] Cholecalciferol (Vitamin D3) [Vitamin D3] 5,000 unit PO DAILY 12/18/18 [History] Colchicine [Colcrys] 0.6 mg PO DAILY 12/18/18 [History] Ipratropium/Albuterol Sulfate [Combivent Respimat Inhal [place]] 2 inh IH Q6HR PRN 12/18/18 [History] Tiotropium [place] [Spiriva Respimat] 2 inh IH DAILY 12/18/18 [History] Allergies/Adverse Reactions: Allergy/AdvReac Type Severity Reaction Status Date / Time latex Allergy Unknown Rash Verified 09/26/17 08:03 aspirin AdvReac Unknown Stomach Verified 09/26/17 08:03 upset Date of admission: 12/18/18 15:00 Primary care physician: Aryan Rees MD Consults: 12/18/18 15:33 Consult to Nephrology [CONS] Stat Consulting Provider: Kidney Jocelyn/ALEJO/SHAR/PARUL Reason for Consult: SALINAS, Hyponatremia Time Notified: 15:33 Call Completed: Yes 12/18/18 16:31 Consult to Nurse Navigator [CONS] Routine Comment: 12/19/18 12:51 Consult to Gastroenterology [CONS] Routine Consulting Provider: Gastroenterology Jocelyn Reason for Consult: heavy etoh use; suspect cirrhosis; need for intermediate designer anticoagulation; possible EGD need Call Completed: Yes 12/20/18 10:51 Consult to Speech Therapy [CONS] Routine Comment: Evaluate, develop and implement POC Reason for Consult: trouble swallowing Call Completed: No 12/20/18 13:18 Consult to Pulmonology [CONS] Stat Consulting Provider: Pulm Crit Care & Sleep Jocelyn Reason for Consult: Resp. Failure Time Notified: 13:18 Call Completed: Yes 12/20/18 16:06 Consult to Oncology Hematology [CONS] Routine Consulting Provider: Esa Gillette Reason for Consult: Leukopenia Call Completed: Yes 12/21/18 11:11 Consult to Nutrition [CONS] Stat Comment: Consulting Provider: NUTRITION Reason for Dietary Consult: PO Supplementation 12/22/18 11:09 Consult to Palliative Care [CONS] Stat Comment: Consulting Provider: Palliative Care Jocelyn Reason for Consult: Goals of care - End stage COPD Time Notified: 11:09 Call Completed: Yes Discharging clinician: Addison Eduardo Anticipated date of discharge: 12/23/18 - Constitutional Vitals: Temp Pulse Resp BP Pulse Ox 95.3 F L 87 15 64/50 98 12/23/18 04:00 12/23/18 06:00 12/23/18 06:00 12/23/18 06:00 12/23/18 06:00 Exam: mottled, unresponsive; no spontaneous respirations, no pulse, no sign of perfusion or cardiac activity - Respiratory Additional comments: no spontaneous respirations, no air movement, no chest wall movement - Cardiovascular Additional comments: no detectable pulse, no cardiac activity on auscultation, no peripheral perfusion, mottling in all four extremities - GI/Abdominal Additional comments: no bowel sounds - Neurological Exam Additional comments: no neurologic activity detected; no response to pain, verbal, or any tactile stimuli; no corneal or gag reflex - Skin Additional comments: mottled, no cap refill, cool skin - Patient Status Disposition: Condition: Critical - Discharge Instructions Follow Up With: Aryan Rees MD [Primary Care Provider] - Forms: ED Satisfaction Letter
[2018-12-23] MEDS ORDERED: predniSONE 20 MG TABLET PO SCH (09:00)
== END 2018-12-23 07:15 | disposition expired ==
LOC: EMEROOARM 12:05 → ICNU 15:00
PROVIDERS: ADMIT Pediatrics; ATTEND Pediatrics